=== PATIENT | female | born 1970 | race Two or more races ===

== ENCOUNTER 2024-08-13 10:46 | Outpatient (REF) | payer OTHER, SELFPAY ==
[2024-08-13 12:29] LABS: Erythrocyte Sedimentation Rate 22 MM/HR (0-20)
--- OUTSIDE RECORDS SUMMARY | 2024-08-13 15:37 | XMS_ITS | Encounter Summary ---
Author Organization [facility] Address [address] [place] [address] Care Team Providers Care Agile Developer Name Role Phone Vinny Trujillo MD Primary Care Provider [phone] Simeon Fowler MD Unavailable [phone] Livia Hines NP Unavailable [phone] Emile Clinton MD Primary Care Provider [phone] Freda Knapp MD Primary Care Provider U Gurmeet Medina MD, PHD Unavailable Oneydava Mekih Sotelo PA-C Unavailable [phone] Vinny Trujillo MD Primary Care Provider [phone] Encounter Details Date Type Department Care Team Description 08/11/2021 Hospital Medical Records [address] [place] [address] Jayy Guzman MD [address] [place] [address] Social History Tobacco Use Types Packs/Day Years Used Date Smoking Tobacco: Never Passive Smoke Exposure: Never Smokeless Tobacco: Never Alcohol Use Standard Drinks/Week Comments No 0 (1 standard drink = 0.6 oz pur e alcohol) Sex Assigned at Date Recorded Not on file Job Start Date Occupation Industry Not on file Not on file Not on file COVID-19 Exposure Response Date Recorded In the last month, have you been in contact with someone who was confirmed or suspected to have Coronavirus / COVID-19? No / Unsure 08/04/2021 1:33 PM EST documented as of this encounter Plan of Treatment Not on file documented as of this encounter Visit Diagnoses Not on filedocumented in this encounter Care Teams Agile Developer Relationship Specialty Start Date End Date Vinny Trujillo MD [address] [place] [address] PCP - General Internal Medicine 04/22/21 10/11/21 Emile Clinton MD [address] [place] [address] PCP - General Internal Medicine 10/12/21 10/15/21 Freda Knapp MD [address] [place] [address] PCP - General Internal Medicine 10/16/21 03/18/22 Vinny Trujillo MD [address] [place] [address] PCP - General Internal Medicine 03/19/22 Simeon Fowler MD [address] [place] [address] [place] [address] Hat Conditioner Cardiovascular Disease 04/28/21 Livia Hines NP [address] [place] [address] [address] [place] [address] Nurse Practitioner Cardiology 07/02/21 Gurmeet Agosto MD, PHD [address] [place] [address] Surgeon Neurosurgery 11/12/21 Mekhi Maddox PA-C 175 [facility] [address] [place] [address] Specialist Neurosurgery 11/12/21 documented as of this encounter
--- OUTSIDE RECORDS SUMMARY | 2024-08-13 15:37 | XMS_ITS | Encounter Summary ---
Author Organization [facility] Address [address] [place] [address] Care Team Providers Care Bin Packer Name Role Phone Vinny Trujillo MD Primary Care Provider [phone] Simeon Fowler MD Unavailable [phone] Livia Hines NP Unavailable [phone] Emile Clinton MD Primary Care Provider [phone] Freda Knapp MD Primary Care Provider U Gurmeet Medina MD, PHD Unavailable Unava Mekhi Sotelo PA-C Unavailable [phone] Vinny Trujillo MD Primary Care Provider [phone] Encounter Details Date Type Department Care Team Description 06/29/2021 Orders Only Medical Records [address] [place] [address] Vinny Trujillo MD [address] [place] [address] Social History Tobacco Use Types Packs/Day Years Used Date Smoking Tobacco: Never Smokeless Tobacco: Never Alcohol Use Standard [...] have Coronavirus / COVID-19? No / Unsure 07/02/2021 8:54 AM EST documented as of this encounter Plan of Treatment Not on file documented as of this encounter Procedures Procedure Name Priority Date/Time Associated Diagnosis Comments OUTSIDE SLEEP STUDY Routine 06/24/2021 documented in this encounter Results * OUTSIDE SLEEP STUDY (06/24/2021) Vinny Trujillo MD PULMONOLOGY documented in this encounter Visit Diagnoses Not on filedocumented in this encounter Care Teams Bin Packer Relationship Specialty Start Date End Date Vinny Trujillo MD [address] [place] [address] PCP - General Internal Medicine 04/22/21 10/11/21 Emile Clinton MD [address] [place] [address] PCP - General Internal Medicine 10/12/21 10/15/21 Freda Knapp MD [address] [place] [address] PCP - General Internal Medicine 10/16/21 03/18/22 Vinny Trujillo MD [address] [place] [address] PCP - General Internal Medicine 03/19/22 Simeon Fowler MD [address] [place] [address] [place] [address] Clutch Operator Cardiovascular Disease 04/28/21 Livia Hines NP [address] [place] [address] [address] [place] [address] Nurse Practitioner Cardiology 07/02/21 Gurmeet Agosto MD, PHD [address] [place] [address] Surgeon Neurosurgery 11/12/21 Mekhi Maddox PA-C 175 [facility] [address] [place] [address] Specialist Neurosurgery 11/12/21 documented as of this encounter
--- OUTSIDE RECORDS SUMMARY | 2024-08-13 15:37 | XMS_ITS | Encounter Summary ---
Author Organization [facility] Address [address] [place] [address] Care Team Providers Care Supervisor Costuming Name Role Phone Ambreen Hazel MD Primary Care Provider Oneyda vailable [facility], Pcp Primary Care Provider Unavailabl e Ambreen Hazel MD Primary Care Provider Oneyda vailable Vinny Trujillo MD Primary Care Provider [phone] Simeon Fowler MD Unavailable [phone] Livia Hines NP Unavailable [phone] Emile Clinton MD Primary Care Provider [phone] Freda Knapp MD Primary Care Provider U Gurmeet Medina MD, PHD Unavailable Unava ilable Mekhi MaddoxC Unavailable [phone] Vinny Trujillo MD Primary Care Provider [phone] Encounter Details Date Type Department Care Team Description 10/09/2018 Diversity Specialist Report Medical Records [address] [place] [address] Ting Rader MD Social History Tobacco Use Types Packs/Day Years Used Date Smoking Tobacco: Never Smokeless Tobacco: Never Alcohol Use Standard Drinks/Week Comments No 0 (1 standard drink = 0.6 oz pur e alcohol) Sex Assigned at Date Recorded Not on file Job Start Date Occupation Industry Not on file Not on file Not on file documented as of this encounter Plan of Treatment Not on file documented as of this encounter Visit Diagnoses Not on filedocumented in this encounter Care Teams Supervisor Costuming Relationship Specialty Start Date End Date Ambreen Hazel MD PCP - General Internal Medicine 01/05/16 [facility], [facility] PCP - General Internal Medicine 07/16/19 07/26/19 Ambreen Hazel MD PCP - General Internal Medicine 07/27/19 Vinny Trujillo MD [address] [place] [address] PCP - General Internal Medicine 04/22/21 10/11/21 Emile Clinton MD [address] [place] [address] PCP - General Internal Medicine 10/12/21 10/15/21 Freda Knapp MD [address] [place] [address] PCP - General Internal Medicine 10/16/21 03/18/22 Vinny Trujillo MD [address] [place] [address] PCP - General Internal Medicine 03/19/22 Simeon Fowler MD [address] [place] [address] [place] [address] Radiopharmacist Cardiovascular Disease 04/28/21 Livia Hines NP [address] [place] [address] [address] [place] [address] Nurse Practitioner Cardiology 07/02/21 Gurmeet Agosto MD, PHD [address] [place] [address] Surgeon Neurosurgery 11/12/21 Mekhi Maddox PA-C 175 [facility] [address] [place] [address] Specialist Neurosurgery 11/12/21 documented as of this encounter
--- OUTSIDE RECORDS SUMMARY | 2024-08-13 15:37 | XMS_ITS | Encounter Summary ---
Author Organization [facility] Address [address] [place] [address] Care Team Providers Care Senior Economist Name Role Phone Vinny Trujillo MD Primary Care Provider [phone] Simeon Fowler MD Unavailable [phone] Livia Hines NP Unavailable [phone] Emile Clinton MD Primary Care Provider [phone] Freda Knapp MD Primary Care Provider U Gurmeet Medina MD, PHD Unavailable Oneydava Mekhi Sotelo PA-C Unavailable [phone] Vinny Trujillo MD Primary Care Provider [phone] Encounter Details Date Type Department Care Team Description 08/12/2021 Orders Only Medical Records [address] [place] [address] Jayy Guzman MD [address] [place] [address] Social History Tobacco Use Types Packs/Day Years [...] Name Priority Date/Time Associated Diagnosis Comments OUTSIDE LAB Routine 08/08/2021 documented in this encounter Results * OUTSIDE LAB (08/08/2021) H Reid Guzman MD LAB documented in this encounter Visit Diagnoses Not on filedocumented in this encounter Care Teams Senior Economist Relationship Specialty Start Date End Date Vinny Trujillo MD [address] [place] [address] PCP - General Internal Medicine 04/22/21 10/11/21 Emile Clinton MD [address] [place] [address] PCP - General Internal Medicine 10/12/21 10/15/21 Freda Knapp MD [address] [place] [address] PCP - General Internal Medicine 10/16/21 03/18/22 Vinny Trujillo MD [address] [place] [address] PCP - General Internal Medicine 03/19/22 Simeon Fowler MD [address] [place] [address] [place] [address] Veneer Gluer Cardiovascular Disease 04/28/21 Livia Hines NP [address] [place] [address] [place] [address] Nurse Practitioner Cardiology 07/02/21 Gurmeet Agosto MD, PHD [address] [place] [address] Surgeon Neurosurgery 11/12/21 Mekhi Maddox PA-C 175 [facility] [address] [place] [address] Specialist Neurosurgery 11/12/21 documented as of this encounter
--- OUTSIDE RECORDS SUMMARY | 2024-08-13 15:37 | XMS_ITS | Encounter Summary ---
Author Organization [facility] Address [address] [place] [address] Care Team Providers Care Senior Reservations Agent Name Role Phone Chanell Will MD Primary Care Provider Unavaila Ambreen Mack MD Primary Care Provider Oneyda vailable [facility], Pcp Primary Care Provider UnavailAmbreen Braden MD Primary Care Provider Oneyda vailable Vinny Trujillo MD Primary Care Provider [phone] Simeon Fowler MD Unavailable [phone] Livia Hines NP Unavailable [phone] Emile Clinton MD Primary Care Provider [phone] Freda Knapp MD Primary Care Provider U Gurmeet Medina MD, PHD Unavailable Unava ilable Mekhi Maddox PA-C Unavailable [phone] Vinny Trujillo MD Primary Care Provider [phone] Encounter Details Date Type Department Care Team Description 09/26/2015 Business Doc Medical Records [address] [place] [address] Abstract, Provider Social History Tobacco Use Types Packs/Day Years [...] filedocumented in this encounter Care Teams Senior Reservations Agent Relationship Specialty Start Date End Date Chanell Will MD PCP - General Internal Medicine 03/31/15 01/04/16 Ambreen Hazel MD PCP - General Internal Medicine 01/05/16 [facility] PCP - General Internal Medicine 07/16/19 07/26/19 Ambreen Hazel MD PCP - General Internal Medicine 07/27/19 Vinny Trujillo MD [address] [place] [address] PCP - General Internal Medicine 04/22/21 10/11/21 Emile Clinton MD [address] [place] [address] PCP - General Internal Medicine 10/12/21 10/15/21 Freda Knapp MD [address] [place] [address] PCP - General Internal Medicine 10/16/21 03/18/22 Vinny Trujillo MD [address] [place] [address] PCP - General Internal Medicine 03/19/22 Simeon Fowler MD [address] [place] [address] [place] [address] Cover Stitch Machine Operator Cardiovascular Disease 04/28/21 Livia Hines NP [address] [place] [address] [place] [address] Nurse Practitioner Cardiology 07/02/21 Gurmeet Agosto MD, PHD [address] [place] [address] Surgeon Neurosurgery 11/12/21 Mekhi Maddox PA-C 175 [facility] [address] [place] [address] Specialist Neurosurgery 11/12/21 documented as of this encounter
--- OUTSIDE RECORDS SUMMARY | 2024-08-13 15:37 | XMS_ITS | Encounter Summary ---
Author Organization [facility] Address [address] [place] [address] Care Team Providers Care Workers Compensation Claims Supervisor Name Role Phone Ambreen Hazel MD Primary Care Provider Oneyda vailable [facility], Pcp Primary Care Provider Unavailabl e Ambreen Hazel MD Primary Care Provider Oneyda vailable Vinny Trujillo MD Primary Care Provider [phone] Simeon Fowler MD Unavailable [phone] Livia Hines NP Unavailable [phone] Emile Clinton MD Primary Care Provider [phone] Freda Knapp MD Primary Care Provider U Gurmeet Medina MD, PHD Unavailable Unava ilMekhi SouzaC Unavailable [phone] Vinny Trujillo MD Primary Care Provider [phone] Encounter Details Date Type Department Care Team Description 11/26/2016 Business Doc Medical Records [address] [place] [address] Abstract, Provider Social History Tobacco Use Types [...] on filedocumented in this encounter Care Teams Workers Compensation Claims Supervisor Relationship Specialty Start Date End Date Ambreen Hazel MD PCP - General Internal Medicine 01/05/16 [facility], Pcp PCP - General Internal Medicine 07/16/19 07/26/19 Ambreen Hazel MD PCP - General Internal Medicine 07/27/19 Vinny Trujillo MD [address] [place] [address] PCP - General Internal Medicine 04/22/21 10/11/21 Emile Clinton MD [address] [place] [address] PCP - General Internal Medicine 10/12/21 10/15/21 Freda Knapp MD [address] [place] [address] PCP - General Internal Medicine 10/16/21 03/18/22 Vinny Trujillo MD [address] [place] [address] PCP - General Internal Medicine 03/19/22 Simeon Fowler MD [address] [place] [address] [address] [place] [address] Cut Out Machine Operator Cardiovascular Disease 04/28/21 Livia Hines NP [address] [place] [address] DR[address] [place] [address] Nurse Practitioner Cardiology 07/02/21 Gurmeet Agosto MD, PHD [address] [place] [address] Surgeon Neurosurgery 11/12/21 Mekhi Maddox PA-C 175 [facility] [address] [place] [address] Specialist Neurosurgery 11/12/21 documented as of this encounter
--- OUTSIDE RECORDS SUMMARY | 2024-08-13 15:37 | XMS_ITS | Encounter Summary ---
Author Organization [facility] Address [address] [place] [address] Care Team Providers Care Rail Bender Name Role Phone Vinny Trujillo MD Primary Care Provider [phone] Simeon Fowler MD Unavailable [phone] Livia Hines NP Unavailable [phone] Emile Clinton MD Primary Care Provider [phone] Freda Knapp MD Primary Care Provider U Gurmeet Medina MD, PHD Unavailable Unava Mekhi Sotelo PA-C Unavailable [phone] Vinny Trujillo MD Primary Care Provider [phone] Encounter Details Date Type Department Care Team Description 06/17/2021 Hospital Medical Records [address] [place] [address] Social History Tobacco Use Types Packs/Day Years [...] have Coronavirus / COVID-19? No / Unsure 06/18/2021 11:05 AM EST documented as of this encounter Plan of Treatment Not on file documented as of this encounter Visit Diagnoses Not on filedocumented in this encounter Care Teams Rail Bender Relationship Specialty Start Date End Date Vinny Trujillo MD [address] [place] [address] PCP - General Internal Medicine 04/22/21 10/11/21 Emile Clinton MD [address] [place] [address] PCP - General Internal Medicine 10/12/21 10/15/21 Freda Knapp MD [address] [place] [address] PCP - General Internal Medicine 10/16/21 03/18/22 Vinny Trujillo MD [address] [place] [address] PCP - General Internal Medicine 03/19/22 Simeon Fowler MD [address] [place] [address] [place] [address] Securities Teller Cardiovascular Disease 04/28/21 Livia Hines NP [address] [place] [address] [address] [place] [address] Nurse Practitioner Cardiology 07/02/21 Gurmeet Agosto MD, PHD [address] [place] [address] Surgeon Neurosurgery 11/12/21 Mekhi Maddox PA-C [address] [place] [address] [address] [place] [address] Specialist Neurosurgery 11/12/21 documented as of this encounter
--- OUTSIDE RECORDS SUMMARY | 2024-08-13 15:37 | XMS_ITS | Encounter Summary ---
Author Organization [facility] Address [address] [place] [address] Care Team Providers Care Facilities Engineering Manager Name Role Phone Chanell Will MD Primary Care Provider Unavaila Ambreen Mack MD Primary Care Provider Oneyda vailable [facility], Pcp Primary Care Provider UnavailAmbreen Braden MD Primary Care Provider Oneyda vailable Vinny Trujillo MD Primary Care Provider [phone] Simeon Fowler MD Unavailable [phone] Livia Hines NP Unavailable [phone] Emile Clinton MD Primary Care Provider [phone] Freda Knapp MD Primary Care Provider U Gurmeet Medina MD, PHD Unavailable Unava ilable Mekhi Maddox PA-C Unavailable [phone] Vinny Trujillo MD Primary Care Provider [phone] Encounter Details Date Type Department Care Team Description 11/07/2015 Bin Worker Report Medical Records [address] [place] [address] [facility] [address] [id number] Social History Tobacco Use Types Packs/Day Years [...] on filedocumented in this encounter Care Teams Facilities Engineering Manager Relationship Specialty Start Date End Date Chanell Will MD PCP - General Internal Medicine 03/31/15 01/04/16 Ambreen Hazel MD PCP - General Internal Medicine 01/05/16 [facility] PCP - General Internal Medicine 07/16/19 07/26/19 Ambreen Hazel MD PCP - General Internal Medicine 07/27/19 Vinny Trujillo MD [address] [place] [address] PCP - General Internal Medicine 04/22/21 10/11/21 Emile Clinton MD [address] [place] [address] PCP - General Internal Medicine 10/12/21 10/15/21 Freda Knapp MD [address] [place] [address] PCP - General Internal Medicine 10/16/21 03/18/22 Vinny Trujillo MD [address] [place] [address] PCP - General Internal Medicine 03/19/22 Simeon Fowler MD [address] [place] [address] [place] [address] Strap Machine Operator Automatic Cardiovascular Disease 04/28/21 Livia Hines NP [address] [place] [address] [address] [place] [address] Nurse Practitioner Cardiology 07/02/21 Gurmeet Agosto MD, PHD [address] [place] [address] Surgeon Neurosurgery 11/12/21 Mekhi Maddox PA-C [address] [place] [address] [address] [place] [address] Specialist Neurosurgery 11/12/21 documented as of this encounter
--- OUTSIDE RECORDS SUMMARY | 2024-08-13 15:37 | XMS_ITS | Encounter Summary ---
Author Organization [facility] Address [address] [place] [address] Care Team Providers Care Rn International Name Role Phone Ambreen Hazel MD Primary Care Provider Oneyda vailable [facility], Pcp Primary Care Provider Unavailabl e Ambreen Hazel MD Primary Care Provider Oneyda vailable Vinny Trujillo MD Primary Care Provider [phone] Simeon Fowler MD Unavailable [phone] Livia Hines NP Unavailable [phone] Emile Clinton MD Primary Care Provider Freda Knapp MD Primary Care Provider U Gurmeet Medina MD, PHD Unavailable Unava ilable Mekhi MaddoxC Unavailable [phone] Vinny Trujillo MD Primary Care Provider [phone] Encounter Details Date Type Department Care Team Description 01/10/2019 Commercial Lines Insurance Agent Report Medical Records [address] [place] [address] Ting Rader MD Social History Tobacco Use [...] on filedocumented in this encounter Care Teams Rn International Relationship Specialty Start Date End Date Ambreen Hazel MD PCP - General Internal Medicine 01/05/16 [facility], [facility] PCP - General Internal Medicine 07/16/19 07/26/19 Ambreen Hazel MD PCP - General Internal Medicine 07/27/19 Vinny Trujillo MD [address] [place] [address] PCP - General Internal Medicine 04/22/21 10/11/21 Emile Clinton MD [address] [place] [address] PCP - General Internal Medicine 10/12/21 10/15/21 Freda Knapp MD [address] [place] [address] PCP - General Internal Medicine 10/16/21 03/18/22 Vinny Trujillo MD [address] [place] [address] PCP - General Internal Medicine 03/19/22 Simeon Fowler MD [address] [place] [address] [place] [address] It Auditor Cardiovascular Disease 04/28/21 Livia Hines NP [address] [place] [address] [address] [place] [address] Nurse Practitioner Cardiology 07/02/21 Gurmeet Agosto MD, PHD [address] [place] [address] Surgeon Neurosurgery 11/12/21 Mekhi Maddox PA-C 175 [facility] [address] [place] [address] Specialist Neurosurgery 11/12/21 documented as of this encounter
--- OUTSIDE RECORDS SUMMARY | 2024-08-13 15:37 | XMS_ITS | Encounter Summary ---
Author Organization [facility] Address [address] [place] [address] Care Team Providers Care Mainframe Systems Programmer Name Role Phone Ambreen Hazel MD Primary Care Provider Oneyda vailagale Dominguez, Pcp Primary Care Provider Unavailabl e Ambreen Hazel MD Primary Care Provider Oneyda vailable Vinny Trujillo MD Primary Care Provider [phone] Simeon Fowler MD Unavailable [phone] Livia Hines NP Unavailable [phone] Emile Clinton MD Primary Care Provider [phone] Freda Knapp MD Primary Care Provider U Gurmeet Medina MD, PHD Unavailable Unava ilMekhi Souza PA-C Unavailable [phone] Vinny Trujillo MD Primary Care Provider [phone] Encounter Details Date Type Department Care Team Description 05/26/2016 Release of Information Medical Records [address] [place] [address] Abstract, Provider Social History Tobacco Use Types [...] on filedocumented in this encounter Care Teams Mainframe Systems Programmer Relationship Specialty Start Date End Date Ambreen Hazel MD PCP - General Internal Medicine 01/05/16 [facility], Pcp PCP - General Internal Medicine 07/16/19 07/26/19 Ambreen Hazel MD PCP - General Internal Medicine 07/27/19 Vinny Trujillo MD [address] [place] [address] PCP - General Internal Medicine 04/22/21 10/11/21 Emile Clinton MD [address] [place] [address] PCP - General Internal Medicine 10/12/21 10/15/21 Freda Knapp MD [address] [place] [address] PCP - General Internal Medicine 10/16/21 03/18/22 Vinny Trujillo MD [address] [place] [address] PCP - General Internal Medicine 03/19/22 Simeon Fowler MD [address] [place] [address] [address] [place] [address] Anchor Operator Cardiovascular Disease 04/28/21 Livia Hines NP [address] [place] [address] [address] [place] [address] Nurse Practitioner Cardiology 07/02/21 Gurmeet Agosto MD, PHD [address] [place] [address] Surgeon Neurosurgery 11/12/21 Mekhi Maddox PA-C 175 [facility] [address] [place] [address] Specialist Neurosurgery 11/12/21 documented as of this encounter
--- OUTSIDE RECORDS SUMMARY | 2024-08-13 15:37 | XMS_ITS | Encounter Summary ---
Author Organization [facility] Address [address] [place] [address] Care Team Providers Care Fabric Lay Out Worker Name Role Phone Vinny Trujillo MD Primary Care Provider [phone] Simeon Fowler MD Unavailable [phone] Livia Hines NP Unavailable [phone] Emile Clinton MD Primary Care Provider [phone] Freda Knapp MD Primary Care Provider U Gurmeet Medina MD, PHD Unavailable Oneydava Mekhi Sotelo PA-C Unavailable [phone] Vinny Trujillo MD Primary Care Provider [phone] Encounter Details Date Type Department Care Team Description 08/13/2021 Orders Only Medical Records [address] [place] [address] Jayy Guzman MD [address] [place] [id number] Social History Tobacco Use Types Packs/Day Years [...] PM EST documented as of this encounter Progress Notes * Ida Guzman MD - 08/24/2021 10:19 AM EST Dear Kayla gastric biopsies taken during the endoscopy show mild inflammation which may have beencaused by irritants. These irritants are such as gastric acid, bile, nonsteroidal medications example ibuprofen, Aleve, caffeine, nicotine or alcohol. Please try to avoid these irritants as much as possible. You may also use an mnuu-kow-loumggf acid reducing agent such as Zantac or Pepcid, Tums, omeprazole etc. when necessary.I would like to personally thank you for allowing us to take care of you. Please don't hesitate to call us for any questions or concerns. Regards, Martín Guzman MD BoardCertified Gastroenterology and Internal Medicine Transplant Hepatology [facility] documented in this encounter Plan of Treatment Not on file documented as of this encounter Procedures Procedure Name Priority Date/Time Associated Diagnosis Comments OUTSIDE PATHOLOGY Routine 08/11/2021 documented in this encounter Results * OUTSIDE PATHOLOGY (08/11/2021) Jayy Guzman MD OUTSIDE LAB documented in this encounter Visit Diagnoses Not on filedocumented in this encounter Care Teams Fabric Lay Out Worker Relationship Specialty Start Date End Date Vinny Trujillo MD [address] [place] [address] PCP - General Internal Medicine 04/22/21 10/11/21 Emile Clinton MD [address] [place] [address] PCP - General Internal Medicine 10/12/21 10/15/21 Freda Knapp MD [address] [place] [address] PCP - General Internal Medicine 10/16/21 03/18/22 Vinny Trujillo MD [address] [place] [address] PCP - General Internal Medicine 03/19/22 Simeon Fowler MD [address] [place] [address] [address] [place] [address] Rotary Derrick Operator Cardiovascular Disease 04/28/21 Livia Hines NP [address] [place] [address] [address] [place] [address] Nurse Practitioner Cardiology 07/02/21 Gurmeet Agosto MD, PHD [address] [place] [address] Surgeon Neurosurgery 11/12/21 Mekhi Maddox PA-C 175 [facility] [address] [place] [address] Specialist Neurosurgery 11/12/21 documented as of this encounter
--- OUTSIDE RECORDS SUMMARY | 2024-08-13 15:37 | XMS_ITS | Encounter Summary ---
Author Organization [facility] Address [address] [place] [address] Care Team Providers Care Featheredge Machine Operator Name Role Phone Ambreen Hazel MD Primary Care Provider Oneyda vailable [facility], Pcp Primary Care Provider Unavailabl e Ambreen Hazel MD Primary Care Provider Oneyda vailable Vinny Trujillo MD Primary Care Provider [phone] Simeon Fowler MD Unavailable [phone] Livia Hines NP Unavailable [phone] Emile Clinton MD Primary Care Provider [phone] Freda Knapp MD Primary Care Provider U Gurmeet Medina MD, PHD Unavailable Unava ilable Mekhi MaddoxC Unavailable [phone] Vinny Trujillo MD Primary Care Provider [phone] Encounter Details Date Type Department Care Team Description 08/30/2018 Steam Fitter Helper Report Medical Records [address] [place] [address] Ting Rader MD Social History Tobacco Use [...] on filedocumented in this encounter Care Teams Featheredge Machine Operator Relationship Specialty Start Date End Date Ambreen Hazel MD PCP - General Internal Medicine 01/05/16 [facility] PCP - General Internal Medicine 07/16/19 07/26/19 Ambreen Hazel MD PCP - General Internal Medicine 07/27/19 Vinny Trujillo MD [address] [place] [address] PCP - General Internal Medicine 04/22/21 10/11/21 Emile Clinton MD [address] [place] [address] PCP - General Internal Medicine 10/12/21 10/15/21 Freda Knapp MD [address] [place] [address] PCP - General Internal Medicine 10/16/21 03/18/22 Vinny Trujillo MD [address] [place] [address] PCP - General Internal Medicine 03/19/22 Simeon Fowler MD [address] [place] [address] [place] [address] Fund Development Manager Cardiovascular Disease 04/28/21 Livia Hines NP [address] [place] [address] [address] [place] [address] Nurse Practitioner Cardiology 07/02/21 Gurmeet Agosto MD, PHD [address] [place] [address] Surgeon Neurosurgery 11/12/21 Mekhi Maddox PA-C 175 [facility] [address] [place] [address] Specialist Neurosurgery 11/12/21 documented as of this encounter
--- OUTSIDE RECORDS SUMMARY | 2024-08-13 15:37 | XMS_ITS | Encounter Summary ---
Author Organization [facility] Address [address] [place] [address] Care Team Providers Care Extruding Press Operator Name Role Phone Ambreen Hazel MD Primary Care Provider Oneyda vailagale Dominguez, Pcp Primary Care Provider Unavailabl e Ambreen Hazel MD Primary Care Provider Oneyda vailable Vinny Trujillo MD Primary Care Provider [phone] Simeon Fowler MD Unavailable [phone] Livia Hines NP Unavailable [phone] Emile Clinton MD Primary Care Provider [phone] Freda Knapp MD Primary Care Provider U Gurmeet Medina MD, PHD Unavailable Unava ilMekhi Souza PA-C Unavailable [phone] Vinny Trujillo MD Primary Care Provider [phone] Encounter Details Date Type Department Care Team Description 02/15/2019 Release of Information Medical Records [address] [place] [id number] Abstract, Provider Social History Tobacco Use Types [...] on filedocumented in this encounter Care Teams Extruding Press Operator Relationship Specialty Start Date End Date Ambreen Hazel MD PCP - General Internal Medicine 01/05/16 [facility], Pcp PCP - General Internal Medicine 07/16/19 07/26/19 Ambreen Hazel MD PCP - General Internal Medicine 07/27/19 Vinny Trujillo MD [address] [place] [address] PCP - General Internal Medicine 04/22/21 10/11/21 Emile Clinton MD [address] [place] [address] PCP - General Internal Medicine 10/12/21 10/15/21 Freda Knapp MD [address] [place] [address] PCP - General Internal Medicine 10/16/21 03/18/22 Vinny Trujillo MD [address] [place] [address] PCP - General Internal Medicine 03/19/22 Simeon Fowler MD [address] [place] [address] [address] [place] [address] Custom Dressmaker Cardiovascular Disease 04/28/21 Livia Hines NP [address] [place] [address] [address] [place] [address] Nurse Practitioner Cardiology 07/02/21 Gurmeet Agosto MD, PHD [address] [place] [address] Surgeon Neurosurgery 11/12/21 Mekhi Maddox PA-C 175 [facility] [address] [place] [address] Specialist Neurosurgery 11/12/21 documented as of this encounter
--- OUTSIDE RECORDS SUMMARY | 2024-08-13 15:37 | XMS_ITS | Encounter Summary ---
Author Organization [facility] Address [address] [place] [address] Care Team Providers Care Maintenance Scheduler Name Role Phone Simeon Fowler MD Unavailable [phone] Livia Hines NP Unavailable [phone] Freda Knapp MD Primary Care Provider U Gurmeet Medina MD, PHD Unavailable Oneydava Mekhi Sotelo PA-C Unavailable [phone] Vinny Trujillo MD Primary Care Provider [phone] Reason for Visit * Reason Comments E-prescribe Rx Request Encounter Details Date Type Department Care Team Description 01/24/2022 Refill Gastroenterology [facility] 175 [facility] [address] [place] [address] Sin Prasad MD E-prescribe Rx Request Social History Tobacco Use Types Packs/Day Years Used Date Smoking Tobacco: Never Smokeless Tobacco: Never Alcohol Use Standard Drinks/Week Comments No 0 (1 standard drink = 0.6 oz pur e alcohol) Sex Assigned at Date Recorded Not on file Job Start Date Occupation Industry Not on file Not on file Not on file COVID-19 Exposure Response Date Recorded In the last 10 days, have yo u been in contact with someone who was confirmed or suspected to have Coronavirus/COVID-19? No / Unsure 01/06/2022 8:26 AM EDT documented as of this encounter Plan of Treatment Not on file documented as of this encounter Visit Diagnoses Not on filedocumented in this encounter Care Teams Maintenance Scheduler Relationship Specialty Start Date End Date Freda Knapp MD [address] [place] [address] [address] [place] [address] PCP - General Internal Medicine 10/16/21 03/18/22 Vinny Trujillo MD [address] [place] [address] PCP - General Internal Medicine 03/19/22 Simeon Fowler MD [address] [place] [address] [address] [place] [address] Dock Grader Cardiovascular Disease 04/28/21 Livia Hines NP [address] [place] [address] [address] [place] [address] Nurse Practitioner Cardiology 07/02/21 Gurmeet Agosto MD, PHD [address] [place] [address] [address] [place] [address] Surgeon Neurosurgery 11/12/21 Mekhi Maddox PA-C [address] [place] [address] [address] [place] [address] Specialist Neurosurgery 11/12/21 documented as of this encounter
--- OUTSIDE RECORDS SUMMARY | 2024-08-13 15:37 | XMS_ITS | Encounter Summary ---
Author Organization [facility] Address [address] [place] [address] Care Team Providers Care Head Of Acquisitions Name Role Phone Ambreen Hazel MD Primary Care Provider Oneyda vailable Alberto, Pcp Primary Care Provider Unavailabl e Ambreen Hazel MD Primary Care Provider Oneyda vailable Vinny Trujillo MD Primary Care Provider [phone] Simeon Fowler MD Unavailable [phone] Livia Hines NP Unavailable [phone] Emile Clinton MD Primary Care Provider [phone] Freda Knapp MD Primary Care Provider U Gurmeet Medina MD, PHD Unavailable Unava ilMekhi SouzaC Unavailable [phone] Vinny Trujillo MD Primary Care Provider [phone] Encounter Details Date Type Department Care Team Description 09/24/2016 Business Doc Medical Records [address] [place] [address] Abstract, Provider Social History Tobacco Use Types [...] on filedocumented in this encounter Care Teams Head Of Acquisitions Relationship Specialty Start Date End Date Ambreen Hazel MD PCP - General Internal Medicine 01/05/16 [facility], Pcp PCP - General Internal Medicine 07/16/19 07/26/19 Ambreen Hazel MD PCP - General Internal Medicine 07/27/19 Vinny Trujillo MD [address] [place] [address] PCP - General Internal Medicine 04/22/21 10/11/21 Emile Clniton MD [address] [place] [address] PCP - General Internal Medicine 10/12/21 10/15/21 Freda Knapp MD [address] [place] [address] PCP - General Internal Medicine 10/16/21 03/18/22 Vinny Trujillo MD [address] [place] [address] PCP - General Internal Medicine 03/19/22 Simeon Fowler MD [address] [place] [address] [address] [place] [address] Kettle Operator Cardiovascular Disease 04/28/21 Livia Hines NP [address] [place] [address] DR[address] [place] [address] Nurse Practitioner Cardiology 07/02/21 Gurmeet Agosto MD, PHD [address] [place] [address] Surgeon Neurosurgery 11/12/21 Mekhi Maddox PA-C 175 [facility] [address] [place] [address] Specialist Neurosurgery 11/12/21 documented as of this encounter
--- OUTSIDE RECORDS SUMMARY | 2024-08-13 15:37 | XMS_ITS | Encounter Summary ---
Author Organization [facility] Address [address] [place] [address] Care Team Providers Care Tile Mechanic Name Role Phone Simeon Fowler MD Unavailable [phone] Livia Hines NP Unavailable [phone] Gurmeet Agosto MD, PHD Unavailable Unava ilMekhi Souza PA-C Unavailable [phone] Vinny Trujillo MD Primary Care Provider [phone] Encounter Details Date Type Department Care Team Description 04/14/2022 Orders Only Medical Records [address] [place] [address] Vinny Trujillo MD [address] [place] [address] Social History Tobacco Use Types Packs/Day Years [...] suspected to have Coronavirus/COVID-19? No / Unsure 04/15/2022 11:39 AM EDT documented as of this encounter Plan of Treatment Not on file documented as of this encounter Procedures Procedure Name Priority Date/Time Associated Diagnosis Comments OUTSIDE MAMMO Routine 04/13/2022 documented in this encounter Results * OUTSIDE MAMMO (04/13/2022) Vinny Trujillo MD RADIOLOGY documented in this encounter Visit Diagnoses Not on filedocumented in this encounter Care Teams Tile Mechanic Relationship Specialty Start Date End Date Vinny Trujillo MD [address] [address] PCP - General Internal Medicine 03/19/22 Simeon Fowler MD [address] [place] [address] [place] [address] Help Desk Associate Cardiovascular Disease 04/28/21 Livia Hines NP [address] [place] [address] [place] [address] Nurse Practitioner Cardiology 07/02/21 Gurmeet Agosto MD, PHD [address] [place] [address] [address] [place] [address] Surgeon Neurosurgery 11/12/21 Mekhi Maddox PA-C 175 [facility] [address] [place] [address] Specialist Neurosurgery 11/12/21 documented as of this encounter
--- OUTSIDE RECORDS SUMMARY | 2024-08-13 15:37 | XMS_ITS | Encounter Summary ---
Author Organization [facility] Address [address] [place] [address] Care Team Providers Care Privacy Director Name Role Phone Simeon Fowler MD Unavailable [phone] Livia Hines NP Unavailable [phone] Freda Knapp MD Primary Care Provider U Gurmeet Medina MD, PHD Unavailable Oneydava Mekhi Sotelo PA-C Unavailable [phone] Vinny Trujillo MD Primary Care Provider [phone] Encounter Details Date Type Department Care Team Description 01/19/2022 [facility] Neurosurgery [place] [address] [place] [address] Gurmeet Agosto MD, PHD Social History Tobacco Use Types Packs/Day Years [...] on filedocumented in this encounter Care Teams Privacy Director Relationship Specialty Start Date End Date Freda Knapp MD [address] [place] [address] DR[address] [place] [address] PCP - General Internal Medicine 10/16/21 03/18/22 Vinny Trujillo MD [address] [place] [address] PCP - General Internal Medicine 03/19/22 Simeon Fowler MD [address] [place] [address] [address] [place] [address] Quilting Machine Helper Cardiovascular Disease 04/28/21 Livia Hines NP [address] [place] [address] [address] [place] [address] Nurse Practitioner Cardiology 07/02/21 Gurmeet Agosto MD, PHD [address] [place] [address] [address] [place] [address] Surgeon Neurosurgery 11/12/21 Mekhi Maddox PA-C [address] [place] [address] [address] [place] [address] Specialist Neurosurgery 11/12/21 documented as of this encounter
--- OUTSIDE RECORDS SUMMARY | 2024-08-13 15:38 | XMS_ITS | Encounter Summary ---
Author Organization [facility] Address [address] [place] [address] Care Team Providers Care Management Recruiter Name Role Phone Vinny Trujillo MD Primary Care Provider [phone] Simeon Fowler MD Unavailable [phone] Livia Hines NP Unavailable [phone] Emile Clinton MD Primary Care Provider [phone] Freda Knapp MD Primary Care Provider U Gurmeet Medina MD, PHD Unavailable Mekhi Maier PA-C Unavailable [phone] Vinny Trujillo MD Primary Care Provider [phone] Encounter Details Date Type Department Care Team Description 09/30/2021 Hospital Medical Records [address] [place] [address] Hakeem Arias PA-C 175 [facility] [address] [place] [address] Social History Tobacco Use Types Packs/Day Years [...] on filedocumented in this encounter Care Teams Management Recruiter Relationship Specialty Start Date End Date Vinny Trujillo MD [address] [place] [address] PCP - General Internal Medicine 04/22/21 10/11/21 Emile Clinton MD [address] [place] [address] PCP - General Internal Medicine 10/12/21 10/15/21 Freda Knapp MD [address] [place] [address] PCP - General Internal Medicine 10/16/21 03/18/22 Vinny Trujillo MD [address] [place] [address] PCP - General Internal Medicine 03/19/22 Simeon Fowler MD [address] [place] [address] [place] [address] Artists' Model Cardiovascular Disease 04/28/21 Livia Hines NP [address] [place] [address] [address] [place] [address] Nurse Practitioner Cardiology 07/02/21 Gurmeet Agosto MD, PHD [address] [place] [address] Surgeon Neurosurgery 11/12/21 Mekhi Maddox PA-C [address] [place] [address] [address] [place] [address] Specialist Neurosurgery 11/12/21 documented as of this encounter
--- OUTSIDE RECORDS SUMMARY | 2024-08-13 15:38 | XMS_ITS | Encounter Summary ---
Author Organization [facility] Address [address] [place] [address] Care Team Providers Care Metal Pattern Maker Name Role Phone Simeon Fowler MD Unavailable [phone] Livia Hines NP Unavailable [phone] Freda Knapp MD Primary Care Provider Gumreet Medina MD, PHD Unavailable Mekhi Maier PA-C Unavailable [phone] Vinny Trujillo MD Primary Care Provider [phone] Encounter Details Date Type Department Care Team Description 10/22/2021 SCAN Medical Records [address] [place] [address] Abstract, Provider Social History Tobacco Use Types [...] on filedocumented in this encounter Care Teams Metal Pattern Maker Relationship Specialty Start Date End Date Freda Knapp MD [address] [facility] [address] [place] [address] PCP - General Internal Medicine 10/16/21 03/18/22 Vinny Trujillo MD [address] [place] [address] PCP - General Internal Medicine 03/19/22 Simeon Fowler MD [address] [place] [address] [address] [place] [address] Bulk Picker Cardiovascular Disease 04/28/21 Livia Hines NP [address] [place] [address] [address] [place] [address] Nurse Practitioner Cardiology 07/02/21 Gurmeet Agosto MD, PHD [address] [place] [address] [address] [place] [address] Surgeon Neurosurgery 11/12/21 Mekhi Maddox PA-C [address] [place] [address] [address] [place] [address] Specialist Neurosurgery 11/12/21 documented as of this encounter
--- OUTSIDE RECORDS SUMMARY | 2024-08-13 15:38 | XMS_ITS | Encounter Summary ---
Author Organization [facility] Address [address] [place] [address] Care Team Providers Care Stewarding Supervisor Name Role Phone Simeon Fowler MD Unavailable [phone] Livia Hines NP Unavailable [phone] Gurmeet Agosto MD, PHD Unavailable Unava Mekhi Sotelo PA-C Unavailable [phone] Vinny Trujillo MD Primary Care Provider [phone] Encounter Details Date Type Department Care Team Description 07/17/2023 Night Triage Doc Medical Records [address] [place] [address] Abstract, Provider Social History Tobacco Use Types [...] on filedocumented in this encounter Care Teams Stewarding Supervisor Relationship Specialty Start Date End Date Vinny Trujillo MD [facility] [place], [place] 140[address] PCP - General Internal Medicine 03/19/22 Simeon Fowler MD [address] [place] [address] [address] [place], [place] [address] Fashion Supervisor Cardiovascular Disease 04/28/21 Livia Hines, JOHN [address] [place] [address] [address] [place] [address] Nurse Practitioner Cardiology 07/02/21 Gurmeet Agosto MD, PHD [address] [place] [address] [address] [place] [address] Surgeon Neurosurgery 11/12/21 Mekhi Maddox PA-C [address] [place] [address] [address] [place] [address] Specialist Neurosurgery 11/12/21 documented as of this encounter
--- OUTSIDE RECORDS SUMMARY | 2024-08-13 15:38 | XMS_ITS | Encounter Summary ---
Author Organization [facility] Address [address] [place] [address] Care Team Providers Care Child Welfare Assistant Name Role Phone Vinny Trujillo MD Primary Care Provider [phone] Simeon Fowler MD Unavailable [phone] Livia Hines NP Unavailable [phone] Emile Clinton MD Primary Care Provider [phone] Freda Knapp MD Primary Care Provider U Gurmeet Medina MD, PHD Unavailable Oneydava Mekhi Sotelo PA-C Unavailable [phone] Vinny Trujillo MD Primary Care Provider [phone] Encounter Details Date Type Department Care Team Description 04/22/2021 Hospital Medical Records [address] [place], [place] [address] [place] [address] Social History Tobacco Use Types Packs/Day Years [...] on filedocumented in this encounter Care Teams Child Welfare Assistant Relationship Specialty Start Date End Date Vinny Trujillo MD [address] [place] [address] PCP - General Internal Medicine 04/22/21 10/11/21 Emile Clinton MD [address] [place] [address] PCP - General Internal Medicine 10/12/21 10/15/21 Freda Knapp MD [address] [place] [address] PCP - General Internal Medicine 10/16/21 03/18/22 Vinny Trujillo MD [address] [place] [address] PCP - General Internal Medicine 03/19/22 Simeon Fowler MD [address] [place] [address] [address] [place] [address] Percussion Instructor Cardiovascular Disease 04/28/21 Livia Hines NP [address] [place] [address] [address] [place] [address] Nurse Practitioner Cardiology 07/02/21 Gurmeet Agosto MD, PHD [address] [place] [address] Surgeon Neurosurgery 11/12/21 Mekhi Maddox PA-C 175 [facility] [address] [place] [address] Specialist Neurosurgery 11/12/21 documented as of this encounter
--- OUTSIDE RECORDS SUMMARY | 2024-08-13 15:38 | XMS_ITS | Encounter Summary ---
Author Organization [facility] Address [address] [place] [address] Care Team Providers Care Interlocking Installer Name Role Phone Simeon Fowler MD Unavailable [phone] Livia Hines NP Unavailable [phone] Freda Knapp MD Primary Care Provider U Gurmeet Medina MD, PHD Unavailable Oneydava Mekhi Sotelo PA-C Unavailable [phone] Vinny Trujillo MD Primary Care Provider [phone] Reason for Visit * Reason Comments E-prescribe Rx Request Encounter Details Date Type Department Care Team Description 12/02/2021 Refill Gastroenterology [facility] 175 [facility] [address] [place] [address] Sin Prasad MD E-prescribe Rx [...] suspected to have Coronavirus/COVID-19? No / Unsure 12/03/2021 9:31 AM EDT documented as of this encounter Plan of Treatment Not on file documented as of this encounter Visit Diagnoses Not on filedocumented in this encounter Care Teams Interlocking Installer Relationship Specialty Start Date End Date Freda Knapp MD [address] [place] [address] [address] [place] [address] PCP - General Internal Medicine 10/16/21 03/18/22 Vinny Trujillo MD [address] [place] [address] PCP - General Internal Medicine 03/19/22 Simeon Fowler MD [address] [place] [address] [address] [place] [address] Real Estate Services Administrator Cardiovascular Disease 04/28/21 Livia Hines NP [address] [place] [address] [address] [place] [address] Nurse Practitioner Cardiology 07/02/21 Gurmeet Agosto MD, PHD [address] [place] [address] [address] [place] [address] Surgeon Neurosurgery 11/12/21 Mekhi Maddox PA-C [address] [place] [address] [address] [place] [address] Specialist Neurosurgery 11/12/21 documented as of this encounter
--- OUTSIDE RECORDS SUMMARY | 2024-08-13 15:38 | XMS_ITS | Encounter Summary ---
Author Organization [facility] Address [address] [place] [address] Care Team Providers Care Puff Ironer Name Role Phone Simeon Fowler MD Unavailable [phone] Livia Hines NP Unavailable [phone] Gurmeet Agosto MD, PHD Unavailable Unava ilMekhi Souza PA-C Unavailable [phone] Vinny Trujillo MD Primary Care Provider [phone] Reason for Visit * Reason Onset Date Comments Walk In 10/26/2022 [employer] bryannaany letter Encounter Details Date Type Department Care Team Description 10/26/2022 Telephone Cardio [facility] [address] [place] [address] [address] [place] [phone] Simeon Fowler MD 2 [facility] [address] [place], [place] [id number] Walk In ([employer] letter) Social History Tobacco Use Types Packs/Day Years [...] suspected to have Coronavirus/COVID-19? No / Unsure 10/25/2022 9:11 AM EDT documented as of this encounter Miscellaneous Notes * Telephone Encounter - Simeon Fowler MD - 10/27/2022 12:02 PM EDT Sent form 10/27/22 * Telephone Encounter - Tiffany Regan M.A. - 10/26/2022 4:46 PM EDT Form given to Dr. Fowler for review. * Telephone Encounter - Vicky Knight - 10/26/2022 8:43 AM EDT Patient walked in to drop off a form from [employer] that she'd like filled out by Dr. Fowler. Patients states she needs form filled out and faxed by this Saturday October 29, 2022. The fax number is [phone]. If any questions or concerns, the patient can be reached at [phone]. Thank you! documented in this encounter Plan of Treatment Not on file documented as of this encounter Visit Diagnoses Not on filedocumented in this encounter Care Teams Puff Ironer Relationship Specialty Start Date End Date Vinny Trujillo MD [address] [place] [address] PCP - General Internal Medicine 03/19/22 Simeon Fowler MD [address] [place] [address] [place] [address] Regulatory Intern Cardiovascular Disease 04/28/21 Livia Hines NP [address] [place] [address] [place] [address] Nurse Practitioner Cardiology 07/02/21 Gurmeet Agosto MD, PHD [address] [place] [address] [place] [address] Surgeon Neurosurgery 11/12/21 Mekhi Maddox PA-C 175 [facility] [address] [place] [address] Specialist Neurosurgery 11/12/21 documented as of this encounter
--- OUTSIDE RECORDS SUMMARY | 2024-08-13 15:38 | XMS_ITS | Encounter Summary ---
Author Organization [facility] Address [address] [place] [address] Care Team Providers Care Reach Lift Truck Driver Name Role Phone Vinny Trujillo MD Primary Care Provider [phone] Simeon Fowler MD Unavailable [phone] Livia Hines NP Unavailable [phone] Emile Clinton MD Primary Care Provider [phone] Freda Knapp MD Primary Care Provider U Gurmeet Medina MD, PHD Unavailable Oneydava Mekhi Sotelo PA-C Unavailable [phone] Vinny Trujillo MD Primary Care Provider [phone] Encounter Details Date Type Department Care Team Description 04/26/2021 [facility] Medical Records [address] [place] [address] Simeon Fowler MD [address] [place] [address] [address] [place] [id number] Social History Tobacco Use Types Packs/Day Years [...] on filedocumented in this encounter Care Teams Reach Lift Truck Driver Relationship Specialty Start Date End Date Vinny Trujillo MD [address] [place] [address] PCP - General Internal Medicine 04/22/21 10/11/21 Emile Clinton MD [address] [place] [address] PCP - General Internal Medicine 10/12/21 10/15/21 Freda Knapp MD [address] [place] [address] PCP - General Internal Medicine 10/16/21 03/18/22 Vinny Trujillo MD [address] [place] [address] PCP - General Internal Medicine 03/19/22 Simeon Fowler MD [address] [place] [address] [place] [address] Fuel Efficient Aircraft Designer Cardiovascular Disease 04/28/21 Livia Hines NP [address] [place] [address] [address] [place] [address] Nurse Practitioner Cardiology 07/02/21 Gurmeet Agosto MD, PHD [address] [place] [address] Surgeon Neurosurgery 11/12/21 Mekhi Maddox PA-C [address] [place] [address] [address] [place] [address] Specialist Neurosurgery 11/12/21 documented as of this encounter
--- OUTSIDE RECORDS SUMMARY | 2024-08-13 15:38 | XMS_ITS | Encounter Summary ---
Author Organization [facility] Address [address] [place] [address] Care Team Providers Care Build Engineer Name Role Phone Ambreen Hazel MD Primary Care Provider Oneyda Vinny Arguello MD Primary Care Provider [phone] Simeon Fowler MD Unavailable [phone] Livia Hines NP Unavailable [phone] Emile Clinton MD Primary Care Provider [phone] Freda Knapp MD Primary Care Provider U Gurmeet Medina MD, PHD Unavailable Unava Mekhi Sotelo PA-C Unavailable [phone] Vinny Trujillo MD Primary Care Provider [phone] Reason for Visit * Reason Comments E-prescribe Rx Request Encounter Details Date Type Department Care Team Description 01/05/2021 Refill Gastroenterology [facility] 175 [facility] [address] [place] [id number] Sin Prasad MD E-prescribe Rx Request Social [...] on filedocumented in this encounter Care Teams Build Engineer Relationship Specialty Start Date End Date Ambreen Hazel MD PCP - General Internal Medicine 07/27/19 Vinny Trujillo MD [address] [place] [address] PCP - General Internal Medicine 04/22/21 10/11/21 Emile Clinton MD [address] [place] [address] PCP - General Internal Medicine 10/12/21 10/15/21 Freda Knapp MD [address] [place] [address] PCP - General Internal Medicine 10/16/21 03/18/22 Vinny Trujillo MD [address] [place] [address] PCP - General Internal Medicine 03/19/22 Simeon Fowler MD [address] [place] [address] [address] [place] [address] Integrated Circuit Fabricator Cardiovascular Disease 04/28/21 Livia Hines NP [address] [place] [address] [address] [place] [address] Nurse Practitioner Cardiology 07/02/21 Gurmeet Agosto MD, PHD [address] [place] [address] Surgeon Neurosurgery 11/12/21 Mekhi Maddox PA-C 175 [facility] [address] [place] [address] Specialist Neurosurgery 11/12/21 documented as of this encounter
--- OUTSIDE RECORDS SUMMARY | 2024-08-13 15:38 | XMS_ITS | Encounter Summary ---
Author Organization [facility] Address [address] [place] [address] Care Team Providers Care Instructor Bridge Name Role Phone Simeon Fowler MD Unavailable [phone] Livia Hines NP Unavailable [phone] Gurmeet Agosto MD, PHD Unavailable Unava ilable Mekhi Maddox PA-C Unavailable [phone] Vinny Trujillo MD Primary Care Provider [phone] Encounter Details Date Type Department Care Team Description 09/17/2022 [facility] Medical Records [address] [place] [address] [facility] Social History Tobacco Use Types Packs/Day Years [...] suspected to have Coronavirus/COVID-19? No / Unsure 09/02/2022 7:41 AM EST documented as of this encounter Plan of Treatment Not on file documented as of this encounter Procedures Procedure Name Priority Date/Time Associated Diagnosis Comments OUTSIDE CT Routine 09/17/2022 documented in this encounter Results * OUTSIDE CT (09/17/2022) Provider Abstract RADIOLOGY documented in this encounter Visit Diagnoses Not on filedocumented in this encounter Care Teams Instructor Bridge Relationship Specialty Start Date End Date Vinny Trujillo MD [address] [place] [address] PCP - General Internal Medicine 03/19/22 Simeon Fowler MD [address] [place] [address] [address] [place] [address] [address]Rd Mate Cardiovascular Disease 04/28/21 Livia Hines NP [address] [place] [address] [address] [place] [address] Nurse Practitioner Cardiology 07/02/21 Gurmeet Agosto MD, PHD [address] [place] [address] [address] [place] [address] Surgeon Neurosurgery 11/12/21 Mekhi Maddox PA-C 175 [facility] [address] [place] [address] Specialist Neurosurgery 11/12/21 documented as of this encounter
--- OUTSIDE RECORDS SUMMARY | 2024-08-13 15:38 | XMS_ITS | Encounter Summary ---
Author Organization [facility] Address [address] [place] [address] Care Team Providers Care Relations Manager Name Role Phone Vinny Trujillo MD Primary Care Provider [phone] Simeon Fowler MD Unavailable [phone] Livia Hines NP Unavailable [phone] Emile Clinton MD Primary Care Provider [phone] Freda Knapp MD Primary Care Provider U Gurmeet Medina MD, PHD Unavailable Oneydava Mekhi Sotelo PA-C Unavailable [phone] Vinny Trujillo MD Primary Care Provider [phone] Encounter Details Date Type Department Care Team Description 04/25/2021 Hospital Medical Records [address] [place], [place] [id number] [place] [address] Social History Tobacco Use Types Packs/Day Years [...] on filedocumented in this encounter Care Teams Relations Manager Relationship Specialty Start Date End Date Vinny Trujillo MD [address] [place] [address] PCP - General Internal Medicine 04/22/21 10/11/21 Emile Clinton MD [address] [place] [address] PCP - General Internal Medicine 10/12/21 10/15/21 Freda Knapp MD [address] [place] [address] PCP - General Internal Medicine 10/16/21 03/18/22 Vinny Trujillo MD [address] [place] [address] PCP - General Internal Medicine 03/19/22 Simeon Fowler MD [address] [place] [address] [address] [place] [address] Director Sales Cardiovascular Disease 04/28/21 Livia Hines NP [address] [place] [address] [address] [place] [address] Nurse Practitioner Cardiology 07/02/21 Gurmeet Agosto MD, PHD [address] [place] [address] Surgeon Neurosurgery 11/12/21 Mekhi Maddox PA-C 175 [facility] [address] [place] [address] Specialist Neurosurgery 11/12/21 documented as of this encounter
--- OUTSIDE RECORDS SUMMARY | 2024-08-13 15:38 | XMS_ITS | Encounter Summary ---
Author Organization [facility] Address [address] [place] [address] Care Team Providers Care Dining Server Name Role Phone Vinny Trujillo MD Primary Care Provider [phone] Simeon Fowler MD Unavailable [phone] Livia Hines NP Unavailable [phone] Emile Clintno MD Primary Care Provider [phone] Freda Knapp MD Primary Care Provider U Gurmeet Medina MD, PHD Unavailable Mekhi Maier PA-C Unavailable [phone] Vinny Trujillo MD Primary Care Provider [phone] Encounter Details Date Type Department Care Team Description 10/07/2021 Hospital Medical Records [address] [place] [address] Azul Kong PA-C Social History Tobacco Use Types Packs/Day Years [...] Date/Time Associated Diagnosis Comments OUTSIDE LAB Routine 10/14/2021 OUTSIDE LAB Routine 10/14/2021 documented in this encounter Results * OUTSIDE LAB (10/14/2021) Provider Abstract LAB * OUTSIDE LAB (10/14/2021) Provider Abstract LAB documented in this encounter Visit Diagnoses Not on filedocumented in this encounter Care Teams Dining Server Relationship Specialty Start Date End Date Vinny Trujillo MD [address] [place] [address] PCP - General Internal Medicine 04/22/21 10/11/21 Emile Clinton MD [address] [place] [address] PCP - General Internal Medicine 10/12/21 10/15/21 Freda Knapp MD [address] [place] [address] PCP - General Internal Medicine 10/16/21 03/18/22 Vinny Trujillo MD [address] [place] [address] PCP - General Internal Medicine 03/19/22 Simeon Fowler MD [address] [place] [address] [place] [address] Senior Sourcing Manager Cardiovascular Disease 04/28/21 Livia Hines NP [address] [place] [address] [address] [place] [address] Nurse Practitioner Cardiology 07/02/21 Gurmeet Agosto MD, PHD [address] [place] [address] Surgeon Neurosurgery 11/12/21 Mekhi Maddox PA-C 175 [facility] [address] [place] [address] Specialist Neurosurgery 11/12/21 documented as of this encounter
--- OUTSIDE RECORDS SUMMARY | 2024-08-13 15:38 | XMS_ITS | Encounter Summary ---
Author Organization [facility] Address [address] [place] [address] Care Team Providers Care Cut Off Sawyer Log Name Role Phone Ambreen Hazel MD Primary Care Provider Oneyda Vinny Arguello MD Primary Care Provider [phone] Simeon Fowler MD Unavailable [phone] Livia Hines NP Unavailable [phone] Emile Clinton MD Primary Care Provider [phone] Freda Knapp MD Primary Care Provider U Gurmeet Medina MD, PHD Unavailable Unava Mekhi Sotelo PA-C Unavailable [phone] Vinny Trujillo MD Primary Care Provider [phone] Reason for Visit * Reason Comments E-prescribe Rx Request Encounter Details Date Type Department Care Team Description 07/04/2020 Refill Allergy [place] [address] [place] [address] Allison Allen MD E-prescribe Rx Request Social History Tobacco [...] have Coronavirus / COVID-19? No / Unsure 06/05/2020 2:28 PM EST documented as of this encounter Miscellaneous Notes * Telephone Encounter - Parrish Ryan M.A. - 07/04/2020 2:40 PM EST Faxed to pharmacy I spoke with patient. She is aware of message below and for further refills she has booked her f/u medication check for 07/25/2020, with Vijaya Reese PA-C as advised. Patient verbalized understandingof message and will call office with any questions or concerns. * Telephone Encounter - Allison Allen MD - 07/04/2020 1:35 PM EST Patient needs appt for additional refills * Telephone Encounter - Parrish Ryan M.A. - 07/04/2020 8:25 AM EST JAVED- 01/03/2020 F/U- No f/u scheduled documented in this encounter Plan of Treatment Not on file documented as of this encounter Visit Diagnoses Not on filedocumented in this encounter Care Teams Cut Off Sawyer Log Relationship Specialty Start Date End Date Ambreen Hazel MD PCP - General Internal Medicine 07/27/19 1 Vinny Trujillo MD [address] [place] [address] PCP - General Internal Medicine 04/22/21 10/11/21 Emile Clinton MD [address] [place] [address] PCP - General Internal Medicine 10/12/21 10/15/21 Freda Knapp MD [address] [place] [address] PCP - General Internal Medicine 10/16/21 03/18/22 Vinny Trujillo MD [address] [place] [address] PCP - General Internal Medicine 03/19/22 Simeon Fowler MD [address] [place] [address] [address] [place] [address] Leadership Development Instructor Cardiovascular Disease 04/28/21 Livia Hines NP [address] [place] [address] [address] [place] [address] Nurse Practitioner Cardiology 07/02/21 Gurmeet Agosto MD, PHD [address] [place] [address] Surgeon Neurosurgery 11/12/21 Mekhi Maddox PA-C 175 [facility] [address] [place] [address] Specialist Neurosurgery 11/12/21 documented as of this encounter
--- OUTSIDE RECORDS SUMMARY | 2024-08-13 15:38 | XMS_ITS | Encounter Summary ---
Author Organization [facility] Address [address] [place] [address] Care Team Providers Care Collar Feller Name Role Phone Simeon Fowler MD Unavailable [phone] Livia Hines NP Unavailable [phone] Gurmeet Agosto MD, PHD Unavailable Unava Mkehi Sotelo PA-C Unavailable [phone] Vinny Trujillo MD Primary Care Provider Encounter Details Date Type Department Care Team Description 08/13/2022 Truck Despatcher Report Medical Records [address] [place] [address] Loco Dickey MD Social History Tobacco Use Types Packs/Day [...] suspected to have Coronavirus/COVID-19? No / Unsure 08/12/2022 12:41 PM EST documented as of this encounter Plan of Treatment Not on file documented as of this encounter Visit Diagnoses Not on filedocumented in this encounter Care Teams Collar Feller Relationship Specialty Start Date End Date Vinny Trujillo MD [facility] [place] [address] PCP - General Internal Medicine 03/19/22 Simeon Fowler MD [address] [place] [address] [address] [place] [address] Medical Technicians Cardiovascular Disease 04/28/21 Livia Hines NP [address] [place] [address] [address] [place] [address] Nurse Practitioner Cardiology 07/02/21 Gurmeet Agosto MD, PHD [address] [place] [address] [address] [place] [address] Surgeon Neurosurgery 11/12/21 Mekhi Maddox PA-C 175 [facility] [address] [place] [address] Specialist Neurosurgery 11/12/21 documented as of this encounter
--- OUTSIDE RECORDS SUMMARY | 2024-08-13 15:38 | XMS_ITS | Encounter Summary ---
Author Organization [facility] Address [address] [place] [address] Care Team Providers Care Warehouseman Name Role Phone Simeon Fowler MD Unavailable [phone] Livia Hines NP Unavailable [phone] Gurmeet Agosto MD, PHD Unavailable Unava Mekhi Sotelo PA-C Unavailable [phone] Vinny Trujillo MD Primary Care Provider [phone] Reason for Visit * Reason Onset Date Comments Provider Call Back 08/17/2023 Encounter Details Date Type Department Care Team Description 08/17/2023 Telephone Adult Medicine [address] [address] Vinny Trujillo MD [address] [place] [address] Provider Call Back Social History Tobacco Use Types Packs/Day Years Used Date Smoking Tobacco: Never Passive Smoke Exposure: Never Smokeless Tobacco: Never Alcohol Use Standard Drinks/Week Comments No 0 (1 standard drink = 0.6 oz pur e alcohol) Sex Assigned at Date Recorded Not on file Job Start Date Occupation Industry Not on file Not on file Not on file documented as of this encounter Miscellaneous Notes * Telephone Encounter - Vinny Trujillo MD - 08/17/2023 3:34 PM EST Noted. Thank you for informing me. * Telephone Encounter - Lissa Ragland - 08/17/2023 1:14 PM EST Caller requesting call back from provider: Is the caller the patient? YES If caller is not the patient, what is the callers name? N/A Callers relationship to patient? N/A If person calling is not the patient themselves, is there a verbal release in FYI or permanent comments for this person: NO Reason for call back: Pt want to let Dr Trujillo know she missed today;s appt because she was sent to [facility] by her [facility] doctor. Caller offered to speak with the nurse for assistance: YES Response: Patient offered to speak with nurse for assistance and patient agreed. Message forwarded to nurse. documented in this encounter Plan of Treatment Not on file documented as of this encounter Visit Diagnoses Not on filedocumented in this encounter Care Teams Warehouseman Relationship Specialty Start Date End Date Vinny Trujillo MD [address] [place] [address] PCP - General Internal Medicine 03/19/22 Simeon Fowler MD [address] [place] [address] [place] [address] Lens Mold Setter Cardiovascular Disease 04/28/21 Livia Hines NP [address] [place] [address] [place] [address] Nurse Practitioner Cardiology 07/02/21 Gurmeet Agosto MD, PHD [address] [place] [address] [address] [place] [address] Surgeon Neurosurgery 11/12/21 Mekhi Maddox PA-C 175 [facility] [address] [place] [address] Specialist Neurosurgery 11/12/21 documented as of this encounter
--- OUTSIDE RECORDS SUMMARY | 2024-08-13 15:38 | XMS_ITS | Encounter Summary ---
Author Organization [facility] Address [address] [place] [address] Care Team Providers Care Saloon Keeper Name Role Phone Ambreen Hazel MD Primary Care Provider Oneyda Vinny Arguello MD Primary Care Provider [phone] Simeon Fowler MD Unavailable [phone] Livia Hines NP Unavailable [phone] Emile Clinton MD Primary Care Provider [phone] Freda Knapp MD Primary Care Provider U Gurmeet Medina MD, PHD Unavailable UnaMekhi Mcdowell PA-C Unavailable [phone] Vinny Trujillo MD Primary Care Provider [phone] Reason for Visit * Reason Onset Date Comments E-prescribe Rx Request 11/29/[address] 20 MG CAPSULE Encounter Details Date Type Department Care Team Description 11/29/2019 Refill Gastroenterology - [place] [facility] [address] [place] [id number] Christian Bautista PA-C E-prescribe Rx Request (OMEPRAZOLE DR 20 MG CAPSULE) Social History Tobacco Use Types Packs/Day Years [...] on filedocumented in this encounter Care Teams Saloon Keeper Relationship Specialty Start Date End Date Ambreen Hazel MD PCP - General Internal Medicine 07/27/19 Vinny Trujillo MD [address] [place] [address] PCP - General Internal Medicine 04/22/21 10/11/21 Emile Clinton MD [address] [place] [address] PCP - General Internal Medicine 10/12/21 10/15/21 Freda Knapp MD [address] [place] [address] PCP - General Internal Medicine 10/16/21 03/18/22 Vinny Trujillo MD [address] [place] [address] PCP - General Internal Medicine 03/19/22 Simeon Fowler MD [address] [place] [address] [address] [place] [address] Carpenters Helper Cardiovascular Disease 04/28/21 Livia Hines NP [address] [place] [address] [address] [place] [address] Nurse Practitioner Cardiology 07/02/21 Gurmeet Agosto MD, PHD [address] [place] [address] Surgeon Neurosurgery 11/12/21 Mekhi Maddox PA-C 175 [facility] [address] [place] [address] Specialist Neurosurgery 11/12/21 documented as of this encounter
--- OUTSIDE RECORDS SUMMARY | 2024-08-13 15:38 | XMS_ITS | Encounter Summary ---
Author Organization [facility] Address [address] [place] [address] Care Team Providers Care Fast Food Shift Supervisor Name Role Phone Vinny Trujillo MD Primary Care Provider [phone] Simeon Fowler MD Unavailable [phone] Livia Hines NP Unavailable [phone] Emile Clinton MD Primary Care Provider [phone] Freda Knapp MD Primary Care Provider U Gurmeet Medina MD, PHD Unavailable Oneydava Mekhi Sotelo PA-C Unavailable [phone] Vinny Trujillo MD Primary Care Provider [phone] Encounter Details Date Type Department Care Team Description 09/19/2021 Hospital Medical Records [address] [place] [address] Social History Tobacco Use Types Packs/Day Years [...] Date/Time Associated Diagnosis Comments OUTSIDE LAB Routine 09/25/2021 OUTSIDE LAB Routine 09/22/2021 OUTSIDE ECHO Routine 09/21/2021 OUTSIDE MRI/MRA Routine 09/21/[address] Routine 09/19/[address] Routine 09/19/2021 documented in this encounter Results * OUTSIDE LAB (09/25/2021) Provider Abstract LAB * OUTSIDE LAB (09/22/2021) Provider Abstract LAB * OUTSIDE MRI/MRA (09/21/2021) Provider Abstract RADIOLOGY * OUTSIDE ECHO (09/21/2021) Provider Abstract CARDIOLOGY * OUTSIDE CT (09/19/2021) Provider Abstract RADIOLOGY * OUTSIDE CT (09/19/2021) Provider Abstract RADIOLOGY documented in this encounter Visit Diagnoses Not on filedocumented in this encounter Care Teams Fast Food Shift Supervisor Relationship Specialty Start Date End Date Vinny Trujillo MD [address] [place] [address] PCP - General Internal Medicine 04/22/21 10/11/21 Emile Clinton MD [address] [place] [address] PCP - General Internal Medicine 10/12/21 10/15/21 Freda Knapp MD [address] [place] [address] PCP - General Internal Medicine 10/16/21 03/18/22 Vinny Trujillo MD [address] [place] [address] PCP - General Internal Medicine 03/19/22 Simeon Fowler MD [address] [place] [address] [address] [place] [address] Ship'S Captain Cardiovascular Disease 04/28/21 Livia Hines NP [address] [place] [address] [address] [place] [address] Nurse Practitioner Cardiology 07/02/21 Gurmeet Agosto MD, PHD [address] [place] [address] Surgeon Neurosurgery 11/12/21 Mekhi Maddox PA-C 175 [facility] [address] [place] [address] Specialist Neurosurgery 11/12/21 documented as of this encounter
--- OUTSIDE RECORDS SUMMARY | 2024-08-13 15:38 | XMS_ITS | Encounter Summary ---
Author Organization [facility] Address [address] [place] [address] Care Team Providers Care Market Director Name Role Phone Simeon Fowler MD Unavailable [phone] Livia Hines NP Unavailable [phone] Gurmeet Agosto MD, PHD Unavailable Unava Mekhi SoteloC Unavailable [phone] Vinny Trujillo MD Primary Care Provider [phone] Encounter Details Date Type Department Care Team Description 12/15/2022 Electron Microprobe Operator Report Medical Records [address] [place] [address] Mekhi Harper Social History Tobacco Use Types Packs/Day Years [...] suspected to have Coronavirus/COVID-19? No / Unsure 12/06/2022 9:29 AM EDT documented as of this encounter Plan of Treatment Not on file documented as of this encounter Visit Diagnoses Not on filedocumented in this encounter Care Teams Market Director Relationship Specialty Start Date End Date Vinny Trujillo [place] [address] PCP - General Internal Medicine 03/19/22 Simeon Fowler MD [address] [place] [address] [address] [place] [address] Nuclear Engineering Technician Cardiovascular Disease 04/28/21 Livia Hines NP [address] [place] [address] [address] [place] [address] Nurse Practitioner Cardiology 07/02/21 Gurmeet Agosto MD, PHD [address] [place] [address] [address] [place] [address] Surgeon Neurosurgery 11/12/21 Mekhi Maddox PA-C 175 [facility] [address] [place] [address] Specialist Neurosurgery 11/12/21 documented as of this encounter
--- OUTSIDE RECORDS SUMMARY | 2024-08-13 15:38 | XMS_ITS | Encounter Summary ---
Author Organization [facility] Address [address] [place] [address] Care Team Providers Care Dissolver Operator Name Role Phone Chanell Will MD Primary Care Provider Unavaila Ambreen Mack MD Primary Care Provider Oneyda vailable [facility], Pcp Primary Care Provider UnavailAmbreen Braden MD Primary Care Provider Oneyda vailable Vinny Trujillo MD Primary Care Provider [phone] Simeon Fowler MD Unavailable [phone] Livia Hines NP Unavailable [phone] Emile Clinton MD Primary Care Provider [phone] Freda Knapp MD Primary Care Provider U Gurmeet Medina MD, PHD Unavailable Unava ilable Mekhi Maddox PA-C Unavailable [phone] Vinny Trujillo MD Primary Care Provider [phone] Encounter Details Date Type Department Care Team Description 04/16/2015 Business Doc Medical Records [address] [place] [address] Abstract, Provider Social History Tobacco Use Types [...] on filedocumented in this encounter Care Teams Dissolver Operator Relationship Specialty Start Date End Date Chanell Will MD PCP - General Internal Medicine 03/31/15 01/04/16 Ambreen Hazel MD PCP - General Internal Medicine 01/05/16 [facility] PCP - General Internal Medicine 07/16/19 07/26/19 Ambreen Hazel MD PCP - General Internal Medicine 07/27/19 Vinny Trujillo MD [address] [place] [address] PCP - General Internal Medicine 04/22/21 10/11/21 Emile Clinton MD [address] [place] [address] PCP - General Internal Medicine 10/12/21 10/15/21 Freda Knapp MD [address] [place] [address] PCP - General Internal Medicine 10/16/21 03/18/22 Vinny Trujillo MD [address] [place] [address] PCP - General Internal Medicine 03/19/22 Simeon Fowler MD [address] [place] [address] [place] [address] Assistant Professor Of Chemistry Cardiovascular Disease 04/28/21 Livia Hines NP [address] [place] [address] [place] [address] Nurse Practitioner Cardiology 07/02/21 Gurmeet Agosto MD, PHD [address] [place] [address] Surgeon Neurosurgery 11/12/21 Mekhi Maddox PA-C 175 [facility] [address] [place] [address] Specialist Neurosurgery 11/12/21 documented as of this encounter
--- OUTSIDE RECORDS SUMMARY | 2024-08-13 15:38 | XMS_ITS | Encounter Summary ---
Author Organization [facility] Address [address] [place] [address] Care Team Providers Care Chemical Laboratory Scientist Name Role Phone Simeon Fowler MD Unavailable [phone] Livia Hines NP Unavailable [phone] Gurmeet Agosto MD, PHD Unavailable Unava Mekhi Sotelo PA-C Unavailable [phone] Vinny Trujillo MD Primary Care Provider [phone] Encounter Details Date Type Department Care Team Description 09/20/2023 Telephone Adult Medicine [address] [address] Vinny Trujillo MD [address] [place] [address] Social History Tobacco Use Types Packs/Day Years [...] on filedocumented in this encounter Care Teams Chemical Laboratory Scientist Relationship Specialty Start Date End Date Vinny Trujillo MD [address] [place] [address] PCP - General Internal Medicine 03/19/22 Simeon Fowler MD [address] [place] [address] [address] [place] [address] Parking Lot Chauffeur Cardiovascular Disease 04/28/21 Livia Hines NP [address] [place] [address] [address] [place] [address] Nurse Practitioner Cardiology 07/02/21 Gurmeet Agosto MD, PHD [address] [place] [address] [address] [place] [address] Surgeon Neurosurgery 11/12/21 Mekhi Maddox PA-C [address] [place] [address] [address] [place] [address] Specialist Neurosurgery 11/12/21 documented as of this encounter
--- OUTSIDE RECORDS SUMMARY | 2024-08-13 15:38 | XMS_ITS | Encounter Summary ---
Author Organization [facility] Address [address] [place] [address] Care Team Providers Care Educational Advisor Name Role Phone Ambreen Hazel MD Primary Care Provider Oneyda Vinny Arguello MD Primary Care Provider [phone] Simeon Fowler MD Unavailable [phone] Livia Hines NP Unavailable [phone] Emile Clinton MD Primary Care Provider [phone] Freda Knapp MD Primary Care Provider U Gurmeet Medina MD, PHD Unavailable Unava Mekhi Sotelo PA-C Unavailable [phone] Vinny Trujillo MD Primary Care Provider [phone] Reason for Visit * Reason Comments E-prescribe Rx Request Encounter Details Date Type Department Care Team Description 04/21/2020 Refill Gastroenterology - [facility] 175 [facility] [address] [place] [id number] Sin Prasad MD E-prescribe Rx Request Social [...] encounter Miscellaneous Notes * Telephone Encounter - Maria Del Rosario Reddy - 04/22/2020 8:55 AM EDT Pharmacy request do you want this pt. On this? She was last seen in 2019 documented in this encounter Plan of Treatment Not on file documented as of this encounter Visit Diagnoses Not on filedocumented in this encounter Care Teams Educational Advisor Relationship Specialty Start Date End Date Ambreen Hazel MD PCP - General Internal Medicine 07/27/19 1 Vinny Trujillo MD [address] [place] [address] PCP - General Internal Medicine 04/22/21 10/11/21 Emile Clinton MD [address] [place] [address] PCP - General Internal Medicine 10/12/21 10/15/21 Freda Knapp MD [address] [place] [address] PCP - General Internal Medicine 10/16/21 03/18/22 Vinny Trujillo MD [address] [place] [address] PCP - General Internal Medicine 03/19/22 Simeon Fowler MD [address] [place] [address] [place] [address] Environmental Management Specialist Cardiovascular Disease 04/28/21 Livia Hines NP [address] [place] [address] [address] [place] [address] Nurse Practitioner Cardiology 07/02/21 Gurmeet Agosto MD, PHD [address] [place] [address] Surgeon Neurosurgery 11/12/21 Mekhi Maddox PA-C 175 [facility] [address] [place] [address] Specialist Neurosurgery 11/12/21 documented as of this encounter
--- OUTSIDE RECORDS SUMMARY | 2024-08-13 15:38 | XMS_ITS | Encounter Summary ---
Author Organization [facility] Address [address] [place] [address] Care Team Providers Care Sales Activity Manager Name Role Phone Simeon Fowler MD Unavailable [phone] Livia Hines NP Unavailable Gurmeet Agosto MD, PHD Unavailable Unava ilMekhi Souza PA-C Unavailable [phone] Vinny Trujillo MD Primary Care Provider [phone] Reason for Visit * Reason Onset Date Comments medication problems 09/16/2023 Encounter Details Date Type Department Care Team Description 09/16/2023 Telephone Adult Medicine [address] [address] Vinny Trujillo MD [address] [place] [address] medication problems Social History Tobacco Use Types Packs/Day Years [...] encounter Miscellaneous Notes * Telephone Encounter - Carla Sawant - 09/16/2023 1:15 PM EST Patient informed. * Telephone Encounter - Jose Marcano PA-C - 09/16/2023 11:59 AM EST Once while fasting in the morning. * Telephone Encounter - Maggie Pitts L.P.NIla - 09/16/2023 11:05 AM EST Please confirm how often patient should be checking her blood sugar / daily or 4 x daily? Thank you. * Telephone Encounter - Marlys Baptiste - 09/16/2023 10:42 AM EST Who is calling? A pharmacist: Pharmacy: [facility] Pharmacist Name: [facility] Name of the medication glucose monitoring kit (FREESTYLE) monitoring kit, Glucose Blood (FREESTYLE LITE) Strip, FreeStyle Lancets Misc What is the specific problem or interaction? Which is the correct frequency of testing 1 per day or4 per day? If the patient is having a problem with taking the med - how long has the problem been going on? N/a documented in this encounter Plan of Treatment Not on file documented as of this encounter Visit Diagnoses Not on filedocumented in this encounter Care Teams Sales Activity Manager Relationship Specialty Start Date End Date Vinny Trujillo MD [address] [place] [address] PCP - General Internal Medicine 03/19/22 Simeon Fowler MD [address] [place] [address] [place] [address] Hollow Handle Bench Worker Cardiovascular Disease 04/28/21 Livia Hines NP [address] [place] [address] [address] [place] [address] Nurse Practitioner Cardiology 07/02/21 Gurmeet Agosto MD, PHD [address] [place] [address] [address] [place] [address] Surgeon Neurosurgery 11/12/21 Mekhi Maddox PA-C [address] [place] [address] [address] [place] [address] Specialist Neurosurgery 11/12/21 documented as of this encounter
--- OUTSIDE RECORDS SUMMARY | 2024-08-13 15:38 | XMS_ITS | Encounter Summary ---
Author Organization [facility] Address [address] [place] [address] Care Team Providers Care Linotype Operator Name Role Phone Vinny Trujillo MD Primary Care Provider [phone] Simeon Fowler MD Unavailable [phone] Livia Hines NP Unavailable [phone] Emile Clinton MD Primary Care Provider [phone] Freda Knapp MD Primary Care Provider U Gurmeet Medina MD, PHD Unavailable Unava Mekhi Sotelo PA-C Unavailable [phone] Vinny Trujillo MD Primary Care Provider [phone] Encounter Details Date Type Department Care Team Description 09/07/2021 Release of Information Medical Records [address] [place] [address] Abstract, Provider Social History Tobacco Use Types [...] have Coronavirus / COVID-19? No / Unsure 08/17/2021 8:15 AM EST documented as of this encounter Plan of Treatment Not on file documented as of this encounter Visit Diagnoses Not on filedocumented in this encounter Care Teams Linotype Operator Relationship Specialty Start Date End Date Vinny Trujillo MD [address] [place] [address] PCP - General Internal Medicine 04/22/21 10/11/21 Emile Clinton MD [address] [place] [address] PCP - General Internal Medicine 10/12/21 10/15/21 Freda Knapp MD [address] [place] [address] PCP - General Internal Medicine 10/16/21 03/18/22 Vinny Trujillo MD [address] [place] [address] PCP - General Internal Medicine 03/19/22 Simeon Folwer MD [address] [place] [address] [place] [address] Die Hardener Cardiovascular Disease 04/28/21 Livia Hines NP [address] [place] [address] [address] [place] [address] Nurse Practitioner Cardiology 07/02/21 Gurmeet Agosto MD, PHD [address] [place] [address] Surgeon Neurosurgery 11/12/21 Mekhi Maddox PA-C [address] [place] [address] [address] [place] [address] Specialist Neurosurgery 11/12/21 documented as of this encounter
--- OUTSIDE RECORDS SUMMARY | 2024-08-13 15:38 | XMS_ITS | Encounter Summary ---
Author Organization [facility] Address [address] [place] [address] Care Team Providers Care Water Chaser Name Role Phone Ambreen Hazel MD Primary Care Provider Oneyda Vinny Arguello MD Primary Care Provider [phone] Simeon Fowler MD Unavailable [phone] Livia Hines NP Unavailable [phone] Emile Clinton MD Primary Care Provider [phone] Freda Knapp MD Primary Care Provider U Gurmeet Medina MD, PHD Unavailable UnaMekhi Mcdowell PA-C Unavailable [phone] Vinny Trujillo MD Primary Care Provider [phone] Reason for Visit * Reason Onset Date Comments Rash 04/10/2020 Encounter Details Date Type Department Care Team Description 04/10/2020 Telephone Adult Medicine [address] [address] Ambreen Hazel MD Rash Social History Tobacco Use Types Packs/Day Years [...] encounter Miscellaneous Notes * Telephone Encounter - Ambreen Augustin - 04/11/2020 10:34 AM EDT Left message for patient to call back. Needs an appt. * Telephone Encounter - Thelma Buckner L.P.N. - 04/10/2020 1:01 PM EDT Please book an appt * Telephone Encounter - Fadumo Aguilera - 04/10/2020 11:41 AM EDT Symptoms patient is presenting: the pt has rash on both her hands that is very dry and her skin is cracking For ALL patients calling to schedule any appointment (routine, sick visit, follow up, consult, etc.) in the outpatient setting please ask the following questions: ?? Do you have fever of higher than 101, sore throat with difficulty swallowing or severe shortnessof breath? NO If YES to any of these above symptoms, send a message to triage and do not book. Red dot. If no, an audio or video visit should be booked. ?? Have you had close contact with someone with Coronavirus in the last 14 days? NO ?? Have you traveled abroad? NO ?? Have you traveled recently to another state outside of [place], [place], [place], [place], [place], [place], [place]? NO o If yes, did you quarantine for 14 days or have a negative covid test? NO If yes to any of the above, patient is not to be scheduled in office until after 14 day quarantine or negative covid test. If pain or injury related was it due to an accident at work or from a motor vehicle accident? NO If yes, gather 3rd republican insurance information Date of accident/Injury: How long has patient had these symptoms?: PCP: Ambreen Hazel Payor: [employer] / Plan: [facility] [employer] / Product Type: HMO [id number] documented in this encounter Plan of Treatment Not on file documented as of this encounter Visit Diagnoses Not on filedocumented in this encounter Care Teams Water Chaser Relationship Specialty Start Date End Date Ambreen Hazel MD PCP - General Internal Medicine 07/27/19 Vinny Trujillo MD [address] [place] [address] PCP - General Internal Medicine 04/22/21 10/11/21 Emile Clinton MD [address] [place] [address] PCP - General Internal Medicine 10/12/21 10/15/21 Freda Knapp MD [address] [place] [address] PCP - General Internal Medicine 10/16/21 03/18/22 Vinny Trujillo MD [address] [place] [address] PCP - General Internal Medicine 03/19/22 Simeon Fowler MD [address] [place] [address] [place] [address] Grey Roll Man Cardiovascular Disease 04/28/21 Livia Hines NP [address] [place] [address] [address] [place] [address] Nurse Practitioner Cardiology 07/02/21 Gurmeet Agosto MD, PHD [address] [place] [address] Surgeon Neurosurgery 11/12/21 Mekhi Maddox PA-C 175 [facility] [address] [place] [address] Specialist Neurosurgery 11/12/21 documented as of this encounter
--- OUTSIDE RECORDS SUMMARY | 2024-08-13 15:38 | XMS_ITS | Encounter Summary ---
Author Organization [facility] Address [address] [place] [address] Care Team Providers Care Director Risk Name Role Phone Simeon Fowler MD Unavailable [phone] Livia Hines NP Unavailable [phone] Gurmeet Agosto MD, PHD Unavailable Unava Mekhi Sotelo PA-C Unavailable [phone] Vinny Trujillo MD Primary Care Provider [phone] Encounter Details Date Type Department Care Team Description 05/17/2023 Orders Only Medical Records [address] [place] [address] Abstract, Provider Social History Tobacco Use Types [...] suspected to have Coronavirus/COVID-19? No / Unsure 05/10/2023 11:08 AM EDT documented as of this encounter Plan of Treatment Not on file documented as of this encounter Procedures Procedure Name Priority Date/Time Associated Diagnosis Comments OUTSIDE CT Routine 05/11/2023 documented in this encounter Results * OUTSIDE CT (05/11/2023) Ting Rader MD RADIOLOGY documented in this encounter Visit Diagnoses Not on filedocumented in this encounter Care Teams Director Risk Relationship Specialty Start Date End Date Vinny Trujillo MD [facility] [place] [address] PCP - General Internal Medicine 03/19/22 Simeon Fowler MD [address] [place] [address] [address] [place] [address] Ecotherapist Cardiovascular Disease 04/28/21 Livia Hines NP [address] [place] [address] [address] [place] [address] Nurse Practitioner Cardiology 07/02/21 Gurmeet Agosto MD, PHD [address] [place] [address] [address] [place] [address] Surgeon Neurosurgery 11/12/21 Mekhi Maddox PA-C [address] [place] [address] [address] [place] [address] Specialist Neurosurgery 11/12/21 documented as of this encounter
--- OUTSIDE RECORDS SUMMARY | 2024-08-13 15:38 | XMS_ITS | Encounter Summary ---
Author Organization [facility] Address [address] [place] [address] Care Team Providers Care Claims Service Adjustor Name Role Phone Vinny Trujillo MD Primary Care Provider [phone] Simeon Fowler MD Unavailable [phone] Livia Hines NP Unavailable [phone] Emile Clinton MD Primary Care Provider Freda Knapp MD Primary Care Provider U Gurmeet Medina MD, PHD Unavailable Mekhi Maier PA-C Unavailable [phone] Vinny Trujillo MD Primary Care Provider [phone] Encounter Details Date Type Department Care Team Description 09/15/2021 Hospital Medical Records [address] [place] [address] Regina Leavitt PA-C Social History Tobacco Use Types Packs/Day [...] on filedocumented in this encounter Care Teams Claims Service Adjustor Relationship Specialty Start Date End Date Vinny Trujillo MD [address] [place] [address] PCP - General Internal Medicine 04/22/21 10/11/21 Emile Clinton MD [address] [place] [address] PCP - General Internal Medicine 10/12/21 10/15/21 Freda Knapp MD [address] [place] [address] PCP - General Internal Medicine 10/16/21 03/18/22 Vinny Trujillo MD [address] [place] [address] PCP - General Internal Medicine 03/19/22 Simeon Fowler MD [address] [place] [address] [address] [place] [address] Atm Mechanic Cardiovascular Disease 04/28/21 Livia Hines NP [address] [place] [address] [address] [place] [address] Nurse Practitioner Cardiology 07/02/21 Gurmeet Agosto MD, PHD [address] [place] [address] Surgeon Neurosurgery 11/12/21 Mekhi Maddox PA-C [address] [place] [address] [address] [place] [address] Specialist Neurosurgery 11/12/21 documented as of this encounter
--- OUTSIDE RECORDS SUMMARY | 2024-08-13 15:38 | XMS_ITS | Encounter Summary ---
Author Organization [facility] Address [address] [place] [address] Care Team Providers Care Leadlighter Name Role Phone Vinny Trujillo MD Primary Care Provider [phone] Simeon Fowler MD Unavailable [phone] Livia Hines NP Unavailable [phone] Emile Clinton MD Primary Care Provider [phone] Freda Knapp MD Primary Care Provider U Gurmeet Medina MD, PHD Unavailable Oneydava Mekhi Sotelo PA-C Unavailable [phone] Vinny Trujillo MD Primary Care Provider [phone] Encounter Details Date Type Department Care Team Description 04/28/2021 Hospital Medical Records [address] [place] [address] Milagros Maldonado PA-C Social History Tobacco Use Types Packs/Day [...] Date/Time Associated Diagnosis Comments OUTSIDE LAB Routine 04/28/2021 OUTSIDE ECHO Routine 04/27/2021 documented in this encounter Results * OUTSIDE LAB (04/28/2021) Provider Abstract LAB * OUTSIDE ECHO (04/27/2021) Provider Abstract CARDIOLOGY documented in this encounter Visit Diagnoses Not on filedocumented in this encounter Care Teams Leadlighter Relationship Specialty Start Date End Date Vinny Trujillo MD [address] [place] [address] PCP - General Internal Medicine 04/22/21 10/11/21 Emile Clinton MD [address] [place] [address] PCP - General Internal Medicine 10/12/21 10/15/21 Freda Knapp MD [address] [place] [address] PCP - General Internal Medicine 10/16/21 03/18/22 Vinny Trujillo MD [address] [place] [address] PCP - General Internal Medicine 03/19/22 Simeon Fowler MD [address] [place] [address] [place] [address] Warp Knitter Helper Cardiovascular Disease 04/28/21 Livia Hines NP [address] [place] [address] [address] [place] [address] Nurse Practitioner Cardiology 07/02/21 Gurmeet Agosto MD, PHD [address] [place] [address] Surgeon Neurosurgery 11/12/21 Mekhi Maddox PA-C 175 [facility] [address] [place] [address] Specialist Neurosurgery 11/12/21 documented as of this encounter
--- OUTSIDE RECORDS SUMMARY | 2024-08-13 15:38 | XMS_ITS | Encounter Summary ---
Author Organization [facility] Address [address] [place] [address] Care Team Providers Care Cardiology Clinical Consultant Name Role Phone Vinny Trujillo MD Primary Care Provider [phone] Simeon Fowler MD Unavailable [phone] Livia Hines NP Unavailable [phone] Emile Clinton MD Primary Care Provider [phone] Freda Knapp MD Primary Care Provider U Gurmeet Medina MD, PHD Unavailable Mekhi Maier PA-C Unavailable [phone] Vinny Trujillo MD Primary Care Provider [phone] Encounter Details Date Type Department Care Team Description 10/07/2021 Hospital Medical Records [address] [place] [address] Cassi Durham PA-C [address] [place] [address] Social History Tobacco Use Types Packs/Day Years [...] on filedocumented in this encounter Care Teams Cardiology Clinical Consultant Relationship Specialty Start Date End Date Vinny Trujillo MD [address] [place] [address] PCP - General Internal Medicine 04/22/21 10/11/21 Emile Clinton MD [address] [place] [address] PCP - General Internal Medicine 10/12/21 10/15/21 Freda Knapp MD [address] [place] [address] PCP - General Internal Medicine 10/16/21 03/18/22 Vinny Trujillo MD [address] [place] [address] PCP - General Internal Medicine 03/19/22 Simeon Fowler MD [address] [place] [address] [address] [place] [address] Costume Shop Manager Cardiovascular Disease 04/28/21 Livia Hines NP [address] [place] [address] [address] [place] [address] Nurse Practitioner Cardiology 07/02/21 Gurmeet Agosto MD, PHD [address] [place] [address] Surgeon Neurosurgery 11/12/21 Mekhi Maddox PA-C [address] [place] [address] [address] [place] [address] Specialist Neurosurgery 11/12/21 documented as of this encounter
--- OUTSIDE RECORDS SUMMARY | 2024-08-13 15:38 | XMS_ITS | Encounter Summary ---
Author Organization [facility] Address [address] [place] [address] Care Team Providers Care Tableau Analyst Name Role Phone Simeon Fowler MD Unavailable [phone] Livia Hines NP Unavailable [phone] Gurmeet Agosto MD, PHD Unavailable Unava Mekhi Sotelo PA-C Unavailable [phone] Vinny Trujillo MD Primary Care Provider [phone] Encounter Details Date Type Department Care Team Description 12/26/2022 SCAN Medical Records [address] [place] [address] Abstract, Provider Social History Tobacco Use Types [...] Date/Time Associated Diagnosis Comments OUTSIDE LAB Routine 12/26/2022 OUTSIDE LAB Routine 12/26/2022 documented in this encounter Results * OUTSIDE LAB (12/26/2022) Provider Abstract LAB * OUTSIDE LAB (12/26/2022) Provider Abstract LAB documented in this encounter Visit Diagnoses Not on filedocumented in this encounter Care Teams Tableau Analyst Relationship Specialty Start Date End Date Vinny Trujillo MD [facility] [place] [address] PCP - General Internal Medicine 03/19/22 Simeon Fowler MD [address] [place] [address] [address] [place] [address] Arch Support Technician Cardiovascular Disease 04/28/21 Livia Hines NP [address] [place] [address] [place] [address] Nurse Practitioner Cardiology 07/02/21 Gurmeet Agosto MD, PHD [address] [place] [address] [address] [place] [address] Surgeon Neurosurgery 11/12/21 Mekhi Maddox PA-C [address] [place] [address] [address] [place] [address] Specialist Neurosurgery 11/12/21 documented as of this encounter
--- OUTSIDE RECORDS SUMMARY | 2024-08-13 15:38 | XMS_ITS | Encounter Summary ---
Author Organization [facility] Address [address] [place] [address] Care Team Providers Care Copy Operator Name Role Phone Ambreen Hazel MD Primary Care Provider Oneyda Vinny Arguello MD Primary Care Provider [phone] Simeon Fowler MD Unavailable [phone] Livia Hines NP Unavailable [phone] Emile Clinton MD Primary Care Provider [phone] Freda Knapp MD Primary Care Provider U Gurmeet Medina MD, PHD Unavailable Unava Mekhi Sotelo PA-C Unavailable [phone] Vinny Trujillo MD Primary Care Provider [phone] Reason for Visit * Reason Comments E-prescribe Rx Request Encounter Details Date Type Department Care Team Description 08/24/2020 Refill Gastroenterology [facility] [address] [facility] [address] [place] [id number] Sin Prasad MD E-prescribe Rx Request Social [...] have Coronavirus / COVID-19? No / Unsure 08/22/2020 9:03 AM EST documented as of this encounter Plan of Treatment Not on file documented as of this encounter Visit Diagnoses Not on filedocumented in this encounter Care Teams Copy Operator Relationship Specialty Start Date End Date Ambreen Hazel MD PCP - General Internal Medicine 07/27/19 Vinny Trujillo MD [address] [place] [address] PCP - General Internal Medicine 04/22/21 10/11/21 Emile Clinton MD [address] [place] [address] PCP - General Internal Medicine 10/12/21 10/15/21 Freda Knapp MD [address] [place] [address] PCP - General Internal Medicine 10/16/21 03/18/22 Vinny Trujillo MD [address] [place] [address] PCP - General Internal Medicine 03/19/22 Simeon Fowler MD [address] [place] [address] [place] [address] Bias Machine Operator Helper Cardiovascular Disease 04/28/21 Livia Hines NP [address] [place] [address] [place] [address] Nurse Practitioner Cardiology 07/02/21 Gurmeet Agosto MD, PHD [address] [place] [address] Surgeon Neurosurgery 11/12/21 Mekhi Maddox PA-C [address] [facility] [address] [place] [address] Specialist Neurosurgery 11/12/21 documented as of this encounter
--- OUTSIDE RECORDS SUMMARY | 2024-08-13 15:38 | XMS_ITS | Encounter Summary ---
Author Organization [facility] Address [address] [place] [address] Care Team Providers Care Test Facility Engineer Name Role Phone Simeon Fowler MD Unavailable [phone] Livia Hines NP Unavailable [phone] Freda Knapp MD Primary Care Provider Gurmeet Medina MD, PHD Unavailable Mekhi Maier PA-C Unavailable [phone] Vinny Trujillo MD Primary Care Provider [phone] Reason for Visit * Reason Comments E-prescribe Rx Request Encounter Details Date Type Department Care Team Description 10/18/2021 Refill Gastroenterology - [place] 175 [facility] [address] [place] [address] Sin Prasad MD E-prescribe Rx [...] on filedocumented in this encounter Care Teams Test Facility Engineer Relationship Specialty Start Date End Date Freda Knapp MD [address] [place] [address] [address] [place] [address] PCP - General Internal Medicine 10/16/21 03/18/22 Vinny Trujillo MD [address] [place] [address] PCP - General Internal Medicine 03/19/22 Simeon Fowler MD [address] [place] [address] [address] [place] [address] Ticket Worker Cardiovascular Disease 04/28/21 Livia Hines NP [address] [place] [address] [address] [place] [address] Nurse Practitioner Cardiology 07/02/21 Gurmeet Agosto MD, PHD [address] [place] [address] [address] [place] [address] Surgeon Neurosurgery 11/12/21 Mekhi Maddox PA-C [address] [place] [address] [address] [place] [address] Specialist Neurosurgery 11/12/21 documented as of this encounter
--- OUTSIDE RECORDS SUMMARY | 2024-08-13 15:38 | XMS_ITS | Encounter Summary ---
Author Organization [facility] Address [address] [place] [address] Care Team Providers Care Pie Chef Name Role Phone Vinny Trujillo MD Primary Care Provider [phone] Simeon Fowler MD Unavailable [phone] Livia Hines NP Unavailable [phone] Emile Clinton MD Primary Care Provider [phone] Freda Knapp MD Primary Care Provider U Gurmeet Medina MD, PHD Unavailable Oneydava Mekhi Sotelo PA-C Unavailable [phone] Vinny Trujillo MD Primary Care Provider [phone] Encounter Details Date Type Department Care Team Description 09/16/2021 Hospital Medical Records [address] [place] [address] Manohar Hayes PA Social History Tobacco Use Types Packs/Day Years [...] on filedocumented in this encounter Care Teams Pie Chef Relationship Specialty Start Date End Date Vinny Trujillo MD [address] [place] [address] PCP - General Internal Medicine 04/22/21 10/11/21 Emile Clinton MD [address] [place] [address] PCP - General Internal Medicine 10/12/21 10/15/21 Freda Knapp MD [address] [place] [address] PCP - General Internal Medicine 10/16/21 03/18/22 Vinny Trujillo MD [address] [place] [address] PCP - General Internal Medicine 03/19/22 Simeon Fowler MD [address] [place] [address] [place] [address] Lease Buyer Cardiovascular Disease 04/28/21 Livia Hines NP [address] [place] [address] [place] [address] Nurse Practitioner Cardiology 07/02/21 Gurmeet Agosto MD, PHD [address] [place] [address] Surgeon Neurosurgery 11/12/21 Mekhi Maddox PA-C [address] [place] [address] [address] [place] [address] Specialist Neurosurgery 11/12/21 documented as of this encounter
--- OUTSIDE RECORDS SUMMARY | 2024-08-13 15:38 | XMS_ITS | Encounter Summary ---
Author Organization [facility] Address [address] [place] [address] Care Team Providers Care Cardiographer Name Role Phone Simeon Fowler MD Unavailable [phone] Livia Hines NP Unavailable [phone] Gurmeet Agosto MD, PHD Unavailable Unava Mekhi Sotelo PA-C Unavailable [phone] Vinny Trujillo MD Primary Care Provider [phone] Encounter Details Date Type Department Care Team Description 11/15/2022 Production Control Clerk Report Medical Records [address] [place] [address] Loco Dickey MD Social History Tobacco Use [...] suspected to have Coronavirus/COVID-19? No / Unsure 11/15/2022 11:50 AM EDT documented as of this encounter Plan of Treatment Not on file documented as of this encounter Visit Diagnoses Not on filedocumented in this encounter Care Teams Cardiographer Relationship Specialty Start Date End Date Vinny Trujillo MD [facility] [place] [address] PCP - General Internal Medicine 03/19/22 Simeon Fowler MD [address] [place] [address] [address] [place] [address] Cat Breeder Cardiovascular Disease 04/28/21 Livia Hines NP [address] [place] [address] [address] [place] [address] Nurse Practitioner Cardiology 07/02/21 Gurmeet Agosto MD, PHD [address] [place] [address] [address] [place] [address] Surgeon Neurosurgery 11/12/21 Mekhi Maddox PA-C [address] [place] [address] [address] [place] [address] Specialist Neurosurgery 11/12/21 documented as of this encounter
--- OUTSIDE RECORDS SUMMARY | 2024-08-13 15:38 | XMS_ITS | Encounter Summary ---
Author Organization [facility] Address [address] [place] [address] Care Team Providers Care Ticket Speculator Name Role Phone Simeon Fowler MD Unavailable [phone] Livia Hines NP Unavailable [phone] Gurmeet Agosto MD, PHD Unavailable Unava Mekhi Sotelo PA-C Unavailable [phone] Vinny Trujillo MD Primary Care Provider [phone] Encounter Details Date Type Department Care Team Description 09/16/2023 Orders Only Medicine/Pediatrics - [address] [id number] Jose Marcano PA-C [address] [place] [address] Social History Tobacco Use Types Packs/Day Years [...] on filedocumented in this encounter Care Teams Ticket Speculator Relationship Specialty Start Date End Date Vinny Trujillo MD [address] [place] [address] PCP - General Internal Medicine 03/19/22 Simeon Fowler MD [address] [place] [address] [address] [place] [address] Bindery Technician Cardiovascular Disease 04/28/21 Livia Hines NP [address] [place] [address] [address] [place] [address] Nurse Practitioner Cardiology 07/02/21 Gurmeet Agosto MD, PHD [address] [place] [address] [address] [place] [address] Surgeon Neurosurgery 11/12/21 Mekhi Maddox PA-C 175 [facility] [address] [place] [address] Specialist Neurosurgery 11/12/21 documented as of this encounter
--- OUTSIDE RECORDS SUMMARY | 2024-08-13 15:38 | XMS_ITS | Encounter Summary ---
Author Organization [facility] Address [address] [place] [address] Care Team Providers Care Top Lift Nailer Name Role Phone Simeon Fowler MD Unavailable [phone] Livia Hines NP Unavailable [phone] Gurmeet Agosto MD, PHD Unavailable Unava Mekhi Sotelo PA-C Unavailable [phone] Vinny Trujillo MD Primary Care Provider [phone] Encounter Details Date Type Department Care Team Description 09/06/2023 SCAN Medical Records [address] [place] [address] [facility] Social History Tobacco Use Types Packs/Day Years [...] on filedocumented in this encounter Care Teams Top Lift Nailer Relationship Specialty Start Date End Date Vinny Trujillo MD [facility] [place], [place] [id number] PCP - General Internal Medicine 03/19/22 Simeon Fowler MD [address] [place] [address] [address] [place], [place] [address] Lye Machine Operator Cardiovascular Disease 04/28/21 Livia Hines, JOHN [address] [place] [address] [address] [place] [address] Nurse Practitioner Cardiology 07/02/21 Gurmeet Agosto MD, PHD [address] [place] [address] [address] [place] [address] Surgeon Neurosurgery 11/12/21 Mekhi Maddox PA-C [address] [place] [address] [address] [place] [address] Specialist Neurosurgery 11/12/21 documented as of this encounter
--- OUTSIDE RECORDS SUMMARY | 2024-08-13 15:38 | XMS_ITS | Encounter Summary ---
Author Organization [facility] Address [address] [place] [address] Care Team Providers Care Windows Security Analyst Name Role Phone Ambreen Hazel MD Primary Care Provider Oneyda Vinny Arguello MD Primary Care Provider [phone] Simeon Fowler MD Unavailable [phone] Livia Hines NP Unavailable [phone] Emile Clinton MD Primary Care Provider [phone] Freda Knapp MD Primary Care Provider U Gurmeet Medina MD, PHD Unavailable Unava Mekhi Sotelo PA-C Unavailable [phone] Vinny Trujillo MD Primary Care Provider [phone] Encounter Details Date Type Department Care Team Description 10/02/2020 Marine Reporter Report Medical Records [address] [place] [address] Loco Dickey MD Social History Tobacco Use [...] have Coronavirus / COVID-19? No / Unsure 09/04/2020 3:45 PM EST documented as of this encounter Plan of Treatment Not on file documented as of this encounter Visit Diagnoses Not on filedocumented in this encounter Care Teams Windows Security Analyst Relationship Specialty Start Date End Date Ambreen Hazel MD PCP - General Internal Medicine 07/27/19 Vinny Trujillo MD [address] [place] [address] PCP - General Internal Medicine 04/22/21 10/11/21 Emile Clinton MD [address] [place] [address] PCP - General Internal Medicine 10/12/21 10/15/21 Freda Knapp MD [address] [place] [address] PCP - General Internal Medicine 10/16/21 03/18/22 Vinny Trujillo MD [address] [place] [address] PCP - General Internal Medicine 03/19/22 Siemon Fowler MD [address] [place] [address] [address] [place] [address] Pre K Lead Teacher Cardiovascular Disease 04/28/21 Livia Hines NP [address] [place] [address] [address] [place] [address] Nurse Practitioner Cardiology 07/02/21 Gurmeet Agosto MD, PHD [address] [place] [address] Surgeon Neurosurgery 11/12/21 Mekhi Maddox PA-C 175 [facility] [address] [place] [address] Specialist Neurosurgery 11/12/21 documented as of this encounter
--- OUTSIDE RECORDS SUMMARY | 2024-08-13 15:38 | XMS_ITS | Encounter Summary ---
Author Organization [facility] Address [address] [place] [address] Care Team Providers Care Pre Sales Architect Name Role Phone Vinny Trujillo MD Primary Care Provider [phone] Simeon Fowler MD Unavailable [phone] Livia Hines NP Unavailable [phone] Emile Clinton MD Primary Care Provider [phone] Freda Knapp MD Primary Care Provider U Gurmeet Medina MD, PHD Unavailable Oneydava Mekhi Sotelo PA-C Unavailable [phone] Vinny Trujillo MD Primary Care Provider [phone] Encounter Details Date Type Department Care Team Description 09/25/2021 Hospital Medical Records [address] [place] [address] Abstract, Provider Social History Tobacco Use Types [...] on filedocumented in this encounter Care Teams Pre Sales Architect Relationship Specialty Start Date End Date Vinny Trujillo MD [facility] [place] [address] PCP - General Internal Medicine 04/22/21 10/11/21 Emile Clinton MD [address] [place] [address] PCP - General Internal Medicine 10/12/21 10/15/21 Freda Knapp MD [address] [place] [address] PCP - General Internal Medicine 10/16/21 03/18/22 Vinny Trujillo MD [address] [place] [address] PCP - General Internal Medicine 03/19/22 Simeon Fowler MD [address] [place] [address] [address] [place] [address] Cable Television Installer Cardiovascular Disease 04/28/21 Livia Hines NP [address] [place] [address] [address] [place] [address] Nurse Practitioner Cardiology 07/02/21 Gurmeet Agosto MD, PHD [address] [place] [address] Surgeon Neurosurgery 11/12/21 Mekhi Maddox PA-C 175 [facility] [address] [place] [address] Specialist Neurosurgery 11/12/21 documented as of this encounter
--- OUTSIDE RECORDS SUMMARY | 2024-08-13 15:38 | XMS_ITS | Encounter Summary ---
Author Organization [facility] Address [address] [place] [address] Care Team Providers Care Housekeeping Aid Name Role Phone Vinny Trujillo MD Primary Care Provider [phone] Simeon Fowler MD Unavailable [phone] Livia Hines NP Unavailable [phone] Emile Clinton MD Primary Care Provider [phone] Freda Knapp MD Primary Care Provider U Gurmeet Medina MD, PHD Unavailable Oneydava Mekhi Sotelo PA-C Unavailable [phone] Vinny Trujillo MD Primary Care Provider [phone] Encounter Details Date Type Department Care Team Description 09/30/2021 Hospital Medical Records [address] [place] [address] [facility] Social History Tobacco Use Types Packs/Day [...] on filedocumented in this encounter Care Teams Housekeeping Aid Relationship Specialty Start Date End Date Vinny Trujillo MD [address] [place] [address] PCP - General Internal Medicine 04/22/21 10/11/21 Emile Clinton MD [address] [place] [address] PCP - General Internal Medicine 10/12/21 10/15/21 Freda Knapp MD [address] [place] [address] PCP - General Internal Medicine 10/16/21 03/18/22 Vinny Trujillo MD [address] [place] [address] PCP - General Internal Medicine 03/19/22 Simeon Fowler MD [address] [place] [address] [address] [place] [address] Ornamental Iron Worker Cardiovascular Disease 04/28/21 Livia Hines NP [address] [place] [address] [address] [place] [address] Nurse Practitioner Cardiology 07/02/21 Gurmeet Agosto MD, PHD [address] [place] [address] Surgeon Neurosurgery 11/12/21 Mekhi Maddox PA-C 175 [facility] [address] [place] [address] Specialist Neurosurgery 11/12/21 documented as of this encounter
--- OUTSIDE RECORDS SUMMARY | 2024-08-13 15:38 | XMS_ITS | Encounter Summary ---
Author Organization [facility] Address [address] [place] [address] Care Team Providers Care Buttonhole Tacker Name Role Phone Simeon Fowler MD Unavailable [phone] Livia Hines NP Unavailable [phone] Gurmeet Agosto MD, PHD Unavailable Unava ilMekhi Souza PA-C Unavailable [phone] Vinny Trujillo MD Primary Care Provider [phone] Encounter Details Date Type Department Care Team Description 05/12/2023 Orders Only Medical Records [address] [place] [address] Vinny Trujillo MD [address] [place] [address] Social History Tobacco Use Types Packs/Day Years [...] Date/Time Associated Diagnosis Comments OUTSIDE MAMMO Routine 05/12/2023 documented in this encounter Results * OUTSIDE MAMMO (05/12/2023) Vinny Trujillo MD RADIOLOGY documented in this encounter Visit Diagnoses Not on filedocumented in this encounter Care Teams Buttonhole Tacker Relationship Specialty Start Date End Date Vinny Trujillo MD [address] [place] [address] PCP - General Internal Medicine 03/19/22 Simeon Fowler MD [address] [place] [address] [place] [address] Case Repairer Cardiovascular Disease 04/28/21 Livia Hines NP [address] [place] [address] [address] [place] [address] Nurse Practitioner Cardiology 07/02/21 Gurmeet Agosto MD, PHD [address] [place] [address] [address] [place] [address] Surgeon Neurosurgery 11/12/21 Mekhi Maddox PA-C 175 [facility] [address] [place] [address] Specialist Neurosurgery 11/12/21 documented as of this encounter
--- OUTSIDE RECORDS SUMMARY | 2024-08-13 15:38 | XMS_ITS | Encounter Summary ---
Author Organization [facility] Address [address] [place] [address] Care Team Providers Care Family Development Specialist Name Role Phone Simeon Fowler MD Unavailable [phone] Livia Hines NP Unavailable [phone] Gurmeet Agosto MD, PHD Unavailable Unava ilMekhi Souza PA-C Unavailable [phone] Vinny Trujillo MD Primary Care Provider [phone] Reason for Visit * Reason Onset Date Comments Prior Authorization 10/28/2023 Encounter Details Date Type Department Care Team Description 10/28/2023 Telephone Adult Medicine [address] [address] Vinny Trujillo MD [address] [place] [address] Prior Authorization Social History Tobacco Use Types Packs/Day Years [...] encounter Miscellaneous Notes * Telephone Encounter - La Harper M.A. - 11/04/2023 4:40 PM EDT Prior authorizaiton for the jose ry was approved Approved from 11/01/23 until 05/02/24 Approval faxed to Prasanth Guajardo Ma at [phone] * Telephone Encounter - La Harper M.A. - 10/31/2023 2:44 PM EDT Prior authorization for the wegovy was completed today on cmm Dx codes E66.01 Class 3 severe obesity due to excess calories with serious comorbidity and body mass index (BMI) of 40.0 to 44.9 in adult E11.9 Type 2 diabetes mellitus wihtout complication, without [facility] current use of insulin * Telephone Encounter - Karma Smith - 10/28/2023 2:34 PM EDT Prior Authorization for Medication-do not complete and send this encounter unless you have the fax from the pharmacy. Is this a Cover My Meds request: Yes -- Villanueva Code [id number] Name of Medication Semaglutide-Weight Management (Wegovy) 0.25 MG/0.5ML Solution Auto-injector Dose of Medication 0.25 MG/0.5ML What is the RX # from the faxed refill? N/a How does patient take this med? Route: Inject 0.25 mg into the skin once a week. - Subcutaneous What Pharmacy did the fax come from: [facility] fax #: [phone] [employer] Party Information from fax: What Prescription Plan does the patient have? N/a BIN/PCN if applicable: n/a Cardholder ID:[id number] Person Code: n/a Relationship Code: n/a Help desk phone: [phone] documented in this encounter Plan of Treatment Not on file documented as of this encounter Visit Diagnoses Not on filedocumented in this encounter Care Teams Family Development Specialist Relationship Specialty Start Date End Date Vinny Trujillo MD [address] [place] [address] PCP - General Internal Medicine 03/19/22 Simeon Fowler MD [address] [place] [address] [address] [place] [address] Respiratory Tech Cardiovascular Disease 04/28/21 Livia Hines NP [address] [place] [address] [address] [place] [address] Nurse Practitioner Cardiology 07/02/21 Gurmeet Agosto MD, PHD [address] [place] [address] [address] [place] [address] Surgeon Neurosurgery 11/12/21 Mekhi Maddox PA-C [address] [place] [address] [address] [place] [address] Specialist Neurosurgery 11/12/21 documented as of this encounter
--- OUTSIDE RECORDS SUMMARY | 2024-08-13 15:38 | XMS_ITS | Encounter Summary ---
Author Organization [facility] Address [address] [place] [address] Care Team Providers Care Information Security Consultant Name Role Phone Simeon Fowler MD Unavailable [phone] Livia Hines NP Unavailable [phone] Freda Knapp MD Primary Care Provider U Gurmeet Medina MD, PHD Unavailable Oneydava Mekhi Sotelo PA-C Unavailable [phone] Vinny Trujillo MD Primary Care Provider [phone] Reason for Visit * Reason Comments E-prescribe Rx Request Encounter Details Date Type Department Care Team Description 12/24/2021 Refill Gastroenterology [facility] 175 [facility] [address] [place] [address] Sin Prasad MD E-prescribe Rx [...] on filedocumented in this encounter Care Teams Information Security Consultant Relationship Specialty Start Date End Date Freda Knapp MD [address] [place] [address] [address] [place] [address] PCP - General Internal Medicine 10/16/21 03/18/22 Vinny Trujillo MD [address] [place] [address] PCP - General Internal Medicine 03/19/22 Simeon Fowler MD [address] [place] [address] [address] [place] [address] Employee Communications Manager Cardiovascular Disease 04/28/21 Livia Hines NP [address] [place] [address] [address] [place] [address] Nurse Practitioner Cardiology 07/02/21 Gurmeet Agosto MD, PHD [address] [place] [address] [address] [place] [address] Surgeon Neurosurgery 11/12/21 Mekhi Maddox PA-C [address] [place] [address] [address] [place] [address] Specialist Neurosurgery 11/12/21 documented as of this encounter
--- OUTSIDE RECORDS SUMMARY | 2024-08-13 15:38 | XMS_ITS | Encounter Summary ---
Author Organization [facility] Address [address] [place] [address] Care Team Providers Care Underground Truck Operator Name Role Phone Vinny Trujillo MD Primary Care Provider [phone] Simeon Fowler MD Unavailable [phone] Livia Hines NP Unavailable [phone] Emile Clinton MD Primary Care Provider [phone] Freda Knapp MD Primary Care Provider U Gurmeet Medina MD, PHD Unavailable Oneydava Mekhi Sotelo PA-C Unavailable [phone] Vinny Trujillo MD Primary Care Provider [phone] Encounter Details Date Type Department Care Team Description 09/14/2021 Hospital Medical Records [address] [place] [address] [facility] Social History Tobacco Use Types Packs/Day [...] on filedocumented in this encounter Care Teams Underground Truck Operator Relationship Specialty Start Date End Date Vinny Trujillo MD [address] [place] [address] PCP - General Internal Medicine 04/22/21 10/11/21 Emile Clinton MD [address] [place] [address] PCP - General Internal Medicine 10/12/21 10/15/21 Freda Knapp MD [address] [place] [address] PCP - General Internal Medicine 10/16/21 03/18/22 Vinny Trujillo MD [address] [place] [address] PCP - General Internal Medicine 03/19/22 Simeon Fowler MD [address] [place] [address] [place] [address] Metal Dealer Cardiovascular Disease 04/28/21 Livia Hines NP [address] [place] [address] [place] [address] Nurse Practitioner Cardiology 07/02/21 Gurmeet Agosto MD, PHD [address] [place] [address] Surgeon Neurosurgery 11/12/21 Mekhi Maddox PA-C [address] [place] [address] [address] [place] [address] Specialist Neurosurgery 11/12/21 documented as of this encounter
--- OUTSIDE RECORDS SUMMARY | 2024-08-13 15:38 | XMS_ITS | Encounter Summary ---
Author Organization [facility] Address [address] [place] [address] Care Team Providers Care Bruise Trimmer Name Role Phone Ambreen Hazel MD Primary Care Provider Oneyda Vinny Arguello MD Primary Care Provider [phone] Simeon Fowler MD Unavailable [phone] Livia Hines NP Unavailable [phone] Emile Clinton MD Primary Care Provider [phone] Freda Knapp MD Primary Care Provider U Gurmeet Medina MD, PHD Unavailable Unava Mekhi Sotelo PA-C Unavailable [phone] Vinny Trujillo MD Primary Care Provider [phone] Reason for Visit * Reason Comments E-prescribe Rx Request Encounter Details Date Type Department Care Team Description 12/19/2019 Refill Gastroenterology - [place] 175 [facility] [address] [place] [phone] Sin Prasad MD E-prescribe Rx Request Social [...] encounter Miscellaneous Notes * Telephone Encounter - Lyn Garcia M.A. - 12/19/2019 9:35 AM EDT Jeffrey 08/21/2019 documented in this encounter Plan of Treatment Not on file documented as of this encounter Visit Diagnoses Not on filedocumented in this encounter Care Teams Bruise Trimmer Relationship Specialty Start Date End Date Ambreen Hazel MD PCP - General Internal Medicine 07/27/19 1 Vinny Trujillo MD [address] [place] [address] PCP - General Internal Medicine 04/22/21 10/11/21 Emile Clinton MD [address] [place] [address] PCP - General Internal Medicine 10/12/21 10/15/21 Freda Knapp MD [address] [place] [address] PCP - General Internal Medicine 10/16/21 03/18/22 Vinny Trujillo MD [address] [place] [address] PCP - General Internal Medicine 03/19/22 Simeon Fowler MD [address] [place] [address] [place] [address] Utility Agent Cardiovascular Disease 04/28/21 Livia Hines NP [address] [place] [address] [place] [address] Nurse Practitioner Cardiology 07/02/21 Gurmeet Agosto MD, PHD [address] [place] [address] Surgeon Neurosurgery 11/12/21 Mekhi Maddox PA-C 175 [facility] [address] [place] [address] Specialist Neurosurgery 11/12/21 documented as of this encounter
--- OUTSIDE RECORDS SUMMARY | 2024-08-13 15:38 | XMS_ITS | Encounter Summary ---
Author Organization [facility] Address [address] [place] [address] Care Team Providers Care Pad Assembler Name Role Phone Simeon Fowler MD Unavailable [phone] Livia Hines NP Unavailable [phone] Freda Knapp MD Primary Care Provider U Gurmeet Medina MD, PHD Unavailable Oneydava Mekhi Sotelo PA-C Unavailable [phone] Vinny Trujillo MD Primary Care Provider [phone] Reason for Visit * Reason Onset Date Comments APPOINTMENT 10/27/2021 Encounter Details Date Type Department Care Team Description 10/27/2021 Telephone Cardio PVC POC [address] [facility] [address] [place] [address] Livia Hines NP [address] [place] [address] Dr [address] [place] [address] APPOINTMENT Social History Tobacco Use Types Packs/Day Years [...] suspected to have Coronavirus/COVID-19? No / Unsure 10/28/2021 9:59 AM EDT documented as of this encounter Miscellaneous Notes * Telephone Encounter - Marlin Hughes - 10/27/2021 8:43 AM EDT LMOM to conf. documented in this encounter Plan of Treatment Not on file documented as of this encounter Visit Diagnoses Not on filedocumented in this encounter Care Teams Pad Assembler Relationship Specialty Start Date End Date Freda Knapp MD [address] [place] [address] [place] [address] PCP - General Internal Medicine 10/16/21 03/18/22 Vinny Trujillo MD [address] [place] [address] PCP - General Internal Medicine 03/19/22 Simeon Fowler MD [address] [place] [address] [place] [address] Corn Picker Cardiovascular Disease 04/28/21 Livia Hines NP [address] [place] [address] [place] [address] Nurse Practitioner Cardiology 07/02/21 Gurmeet Agosto MD, PHD [address] [place] [address] [place] [address] Surgeon Neurosurgery 11/12/21 Mekhi Maddox PA-C 175 [facility] [address] [place] [address] Specialist Neurosurgery 11/12/21 documented as of this encounter
--- OUTSIDE RECORDS SUMMARY | 2024-08-13 15:38 | XMS_ITS | Encounter Summary ---
Author Organization [facility] Address [address] [place] [address] Care Team Providers Care Roll Up Helper Name Role Phone Ambreen Hazel MD Primary Care Provider Oneyda vailable Alberto, Pcp Primary Care Provider Unavailabl e Ambreen Hazel MD Primary Care Provider Oneyda vailable Vinny Trujillo MD Primary Care Provider [phone] Simeon Fowler MD Unavailable [phone] Livia Hines NP Unavailable [phone] Emile Clinton MD Primary Care Provider [phone] Freda Knapp MD Primary Care Provider U Gurmeet Medina MD, PHD Unavailable Unava ilMekhi Souza PA-C Unavailable [phone] Vinny Trujillo MD Primary Care Provider [phone] Encounter Details Date Type Department Care Team Description 08/28/2018 [facility] Medical Records [address] [place] [address] Abstract, Provider Social History Tobacco Use Types [...] on filedocumented in this encounter Care Teams Roll Up Helper Relationship Specialty Start Date End Date Ambreen Hazel MD PCP - General Internal Medicine 01/05/16 [facility], Pcp PCP - General Internal Medicine 07/16/19 07/26/19 Ambreen Hazel MD PCP - General Internal Medicine 07/27/19 Vinny Trujillo MD [address] [place] [address] PCP - General Internal Medicine 04/22/21 10/11/21 Emile Clinton MD [address] [place] [address] PCP - General Internal Medicine 10/12/21 10/15/21 Freda Knapp MD [address] [place] [address] PCP - General Internal Medicine 10/16/21 03/18/22 Vinny Trujillo MD [address] [place] [address] PCP - General Internal Medicine 03/19/22 Simeon Fowler MD [address] [place] [address] [address] [place] [address] Electrocardiogram Technician Cardiovascular Disease 04/28/21 Livia Hines NP [address] [place] [address] [address] [place] [address] Nurse Practitioner Cardiology 07/02/21 Gurmeet Agosto MD, PHD [address] [place] [address] Surgeon Neurosurgery 11/12/21 Mekhi Maddox PA-C 175 [facility] [address] [place] [address] Specialist Neurosurgery 11/12/21 documented as of this encounter
--- OUTSIDE RECORDS SUMMARY | 2024-08-13 15:38 | XMS_ITS | Encounter Summary ---
Author Organization [facility] Address [address] [place] [address] Care Team Providers Care Turbogenerator Operator Name Role Phone Vinny Trujillo MD Primary Care Provider [phone] Simeon Fowler MD Unavailable [phone] Livia Hines NP Unavailable [phone] Emile Clinton MD Primary Care Provider [phone] Freda Knapp MD Primary Care Provider U Gurmeet Medina MD, PHD Unavailable Oneydava Mekhi Sotelo PA-C Unavailable [phone] Vinny Trujillo MD Primary Care Provider [phone] Encounter Details Date Type Department Care Team Description 10/06/2021 [facility] Medical Records [address] [place] [address] Abstract, Provider Social History Tobacco Use Types [...] on filedocumented in this encounter Care Teams Turbogenerator Operator Relationship Specialty Start Date End Date Vinny Trujillo MD [address] [place] [address] PCP - General Internal Medicine 04/22/21 10/11/21 Emile Clinton MD [address] [place] [address] PCP - General Internal Medicine 10/12/21 10/15/21 Freda Knapp MD [address] [place] [address] PCP - General Internal Medicine 10/16/21 03/18/22 Vinny Trujillo MD [address] [place] [address] PCP - General Internal Medicine 03/19/22 Simeon Fowler MD [address] [place] [address] [address] [place] [address] Mold Technician Cardiovascular Disease 04/28/21 Livia Hines NP [address] [place] [address] [address] [place] [address] Nurse Practitioner Cardiology 07/02/21 Gurmeet Agosto MD, PHD [address] [place] [address] Surgeon Neurosurgery 11/12/21 Mekhi Maddox PA-C [address] [place] [address] [address] [place] [address] Specialist Neurosurgery 11/12/21 documented as of this encounter
--- OUTSIDE RECORDS SUMMARY | 2024-08-13 15:38 | XMS_ITS | Encounter Summary ---
Author Organization [facility] Address [address] [place] [address] Care Team Providers Care Knotter Name Role Phone Simeon Fowler MD Unavailable [phone] Livia Hines NP Unavailable [phone] Emile Clinton MD Primary Care Provider [phone] Freda Knapp MD Primary Care Provider U Gurmeet Medina MD, PHD Unavailable Unava Mekhi Sotelo PA-C Unavailable [phone] Vinny Trujillo MD Primary Care Provider [phone] Reason for Visit * Reason Onset Date Comments Unable To Reach 10/13/2021 Encounter Details Date Type Department Care Team Description 10/13/2021 Telephone Pulmonology - [place] 175 [facility] [address] [place] [phone] Sharon Rushing, [facility] [address] [place] [address] Unable To Reach Social History Tobacco Use Types Packs/Day Years [...] encounter Miscellaneous Notes * Telephone Encounter - Frida Tomas - 10/13/2021 2:52 PM EDT [facility] called stating they have been trying to reach patient for a few weeks. Unable to speak to her as her mailbox is full. They have her machine. If patient is to call please have her call them at [phone]. documented in this encounter Plan of Treatment Not on file documented as of this encounter Visit Diagnoses Not on filedocumented in this encounter Care Teams Knotter Relationship Specialty Start Date End Date Emile Clinton MD [address] [place] [address] PCP - General Internal Medicine 10/12/21 10/15/21 Freda Knapp MD [address] [place] [address] PCP - General Internal Medicine 10/16/21 03/18/22 Vinny Trujillo MD [address] [place] [address] PCP - General Internal Medicine 03/19/22 Simeon Fowler MD [address] [place] [address] [place] [address] Cobol Engineer Cardiovascular Disease 04/28/21 Livia Hines NP [address] [place] [address] [address] [place] [address] Nurse Practitioner Cardiology 07/02/21 Gurmeet Agosto MD, PHD [address] [place] [address] Surgeon Neurosurgery 11/12/21 Mekhi Maddox PA-C 175 [facility] [address] [place] [address] Specialist Neurosurgery 11/12/21 documented as of this encounter
--- OUTSIDE RECORDS SUMMARY | 2024-08-13 15:38 | XMS_ITS | Encounter Summary ---
Author Organization [facility] Address [address] [place] [address] Care Team Providers Care Industrial Specialist Name Role Phone Simeon Fowler MD Unavailable [phone] Livia Hines NP Unavailable [phone] Gurmeet Agosto MD, PHD Unavailable Unava Mekhi Sotelo PA-C Unavailable [phone] Vinny Trujillo MD Primary Care Provider [phone] Encounter Details Date Type Department Care Team Description 08/25/2022 [facility] Medical Records [address] [place] [address] [facility] Social History Tobacco Use Types [...] suspected to have Coronavirus/COVID-19? No / Unsure 08/20/2022 10:59 AM EST documented as of this encounter Plan of Treatment Not on file documented as of this encounter Visit Diagnoses Not on filedocumented in this encounter Care Teams Industrial Specialist Relationship Specialty Start Date End Date Vinny Trujillo MD [address] [place] [address] PCP - General Internal Medicine 03/19/22 Simeon Fowler MD [address] [place] [address] [address] [place] [address] Guardian Family Member Cardiovascular Disease 04/28/21 Livia Hines NP [address] [place] [address] [address] [place] [address] Nurse Practitioner Cardiology 07/02/21 Gurmeet Agosto MD, PHD [address] [place] [address] [address] [place] [address] Surgeon Neurosurgery 11/12/21 Mekhi Maddox PA-C [address] [place] [address] [address] [place] [address] Specialist Neurosurgery 11/12/21 documented as of this encounter
--- OUTSIDE RECORDS SUMMARY | 2024-08-13 15:39 | XMS_ITS | Encounter Summary ---
Author Organization [facility] Address [address] [place] [address] Care Team Providers Care Acid Retort Operator Name Role Phone Vinny Trujillo MD Primary Care Provider [phone] Encounter Details Date Type Department Care Team ([facility] st Contact Info) Description 07/23/2024 Telephone Gastroenterology - [place] 175 [facility] 175 [facility] [address] [place] [phone] Nkechi Steen, JOHN 175 [facility] [address] [place] [address] Social History Tobacco Use Types Packs/Day Years Used Date Smoking Tobacco: Never Smokeless Tobacco: Never Alcohol Use Standard Drinks/Week Comments No 0 (1 standard drink = 0.6 oz pur e alcohol) Sex and Gender Information Value Date Recorded Sex Assigned at Female 06/12/2024 4:25 PM EST Gender Identity Female 06/12/2024 4:25 PM EST Sexual Orientation Straight 06/12/2024 4: 25 PM EST Job Start Date Occupation Industry Not on file Not on file Not on file documented as of this encounter Functional Status Functional Status Response Date of Assess ment Are you deaf or do you have serious difficulty h earing? No 06/12/2024 Are you blind or do you have serious difficulty seeing, even when wearing glasses? No 06/12/2024 Do you have serious difficul ty walking or climbing stairs? No 06/12/2024 Do you have serious difficulty dressing or bathi ng? No 06/12/2024 Because of a physical, menta l, or emotional condition, do you have serious difficulty doing errands alone such as visiting the doctor? No 06/12/2024 Cognitive Status Response Date of Assessm ent Because of a physical, menta l, or emotional condition, do you have serious difficulty concentrating, remembering, or making decisions? (5 years old or older) No 06/12/2024 documented as of this encounter Progress Notes * Emily Ortiz - 07/24/2024 9:01 AM EST scheduled * Emily Ortiz - 07/24/2024 8:46 AM EST 1st attempt to schedule an appointment patient left message to call back COLON-MUSLU * Emily Ortiz - 07/23/2024 3:23 PM EST ----- Message from Farheen Steen NP sent at 07/23/2024 3:20 PM EST ----- Regarding: Colonoscopy Please schedule colonoscopy related to family history of colon cancer next available. Thank you. documented in this encounter Plan of Treatment Upcoming Encounters Date Type Department Care Team (Late st Contact Info) Description 08/16/2024 8:40 AM EST Office Visit [facility] Associates - [facility] [address] [place] [address] Annabel Gama NP [address] [place] [address] [place] [address] 08/23/2024 11:30 AM EST Office Visit Obstetrics and Gynecology - [address] [phone] Emily Amos CNM [address] [place] [address] 08/30/2024 12:30 PM EST Nutrition Bariatric Surgery - [place] 175 [facility] [address] [place] [phone] Madonna Reno, RD 175 [facility] 120 [place] [phone] 11/05/2024 12:00 PM EDT Appointment [facility] Endoscopy [address] [place] [phone] Piter Justin, DO 175 [facility] 200 [place] [address] 11/15/2024 10:10 AM EDT Office Visit [facility] Cardiology Associates [facility] [address] [facility] [address] [place] [address] Livia Hines NP [address] [facility] [address] [place] [address] 01/03/2025 1:00 PM EDT Office Visit [facility] - [place] [address] [place] [address] Jose Marcano PA [address] [place] [address] documented as of this encounter Visit Diagnoses Not on filedocumented in this encounter Care Teams Acid Retort Operator Relationship Specialty Start Date End Date Vinny Trujillo MD [address] [place] [address] PCP - General Internal Medicine 06/08/24 documented as of this encounter
--- OUTSIDE RECORDS SUMMARY | 2024-08-13 15:39 | XMS_ITS | Encounter Summary ---
Author Organization [facility] Address [address] [place] [address] Care Team Providers Care Musical Instrument Maker Name Role Phone Vinny Trujillo MD Primary Care Provider [phone] Reason for Visit * Reason Onset Date Comments clearance letter 07/12/2024 Encounter Details Date Type Department Care Team (Late st Contact Info) Description 07/12/2024 Telephone [facility] Cardiology [address] [place] [phone] Simeon Fowler MD [address] [place] [address] [address] [place] [address] clearance letter Social History Tobacco Use Types Packs/Day Years [...] as of this encounter Progress Notes * Maday Hawkins MA - 08/10/2024 8:32 AM EST Images from the original note were not included. * Livia Hines NP - 08/10/2024 7:24 AM EST Preop risk assessment will need to be done in the office. Thank you. * Gill Aguiar - 07/12/2024 2:56 PM EST Patient calling, she's having a gastric by pass done within the next 6 months. They are requesting a clearance note/letter for the patient stating she's safe and cleared to go through with this procedure. Letter can be uploaded to [employer]. documented in this encounter Plan of Treatment Upcoming Encounters Date Type Department Care Team (Late st Contact Info) Description 08/16/2024 8:40 AM EST Office Visit [facility] - Medical [facility] [place] [address] Annabel Gama NP [address] [place] [address] [place] [address] 08/23/2024 11:30 AM EST Office Visit Obstetrics and Gynecology - [facility] 305 [facility] [place], [place] [phone] Emily Amos CNM [address] [place] [address] 08/30/2024 12:30 PM EST Nutrition Bariatric Surgery - [place] 175 [facility] 120 [place] [phone] Madonna Reno, RD 175 [facility] 120 [place] [phone] 11/05/2024 12:00 PM EDT Appointment [facility] Endoscopy [address] [place] [phone] Piter Justin DO 175 [facility] 200 [place] [address] 11/15/2024 10:10 AM EDT Office Visit [facility] Cardiology Associates - [facility] [address] [place] [address] Livia Hines NP [address] [place] [address] Dr [facility] [address] [place] [address] 01/03/2025 1:00 PM EDT Office Visit Mangle Operator Garments - [facility] [address] [place] [address] Jose Marcano PA [address] [place] [address] documented as of this encounter Visit Diagnoses Not on filedocumented in this encounter Care Teams Musical Instrument Maker Relationship Specialty Start Date End Date Vinny Trujillo MD [address] [place] [address] PCP - General Internal Medicine 06/08/24 documented as of this encounter
--- OUTSIDE RECORDS SUMMARY | 2024-08-13 15:39 | XMS_ITS | Clinical Summary ---
Author Organization [facility] Address [address] [place] [address] Care Team Providers Care Pulmonologist Intensivist Name Role Phone Simeon Fowler MD Unavailable [phone] Livia Hines NP Unavailable [phone] Gurmeet Agosto MD, PHD Unavailable Unava Mekhi Sotelo PA-C Unavailable [phone] Vinny Trujillo MD Primary Care Provider [phone] Allergies Active Allergy Reactions Severity Noted Date Comments Cats 06/18/2021 Dogs 01/31/2024 Grass Pollen(K-O-R-T-Swt Kyler) 06/18 Latex Rash/Dermatitis 08/23/2014 Pollen 06/18/2021 Seasonal 06/18/2021 Medications Medication Sig Dispensed Refills Start Date End Date Status topiramate (TOPAMAX) 200 MG tablet Take 200 mg by mouth daily. 0 Active Lurasidone HCl 120 MG Tab Take 1 Tab by mouth every morning. 0 Active Capsaicin 0.025 % Gel Apply 1 Applicator topically daily. 1 Bottle 0 07/14/2018 Active azelastine (ASTELIN) 0.1 % nasal spray 1-2 Sprays by Each Nare route 2 times daily. Use in each nostril as directed 120 Welch 5 02/19/2021 Active olopatadine (Patanol) 0.1 % ophthalmic solution Place 1 Drop into both eyes 2 times daily as needed for Allergies. 5 mL 5 02/19/2021 Active fexofenadine (Daina Allergy) 180 MG tablet Take 1 tablet by mouth daily. 30 tablet 5 02/19/2021 Active clonazepam (KLONOPIN) 1 MG tablet Take 1 Tablet by mouth at bedtime. 0 Active levetiracetam (KEPPRA) 750 MG tablet Take 750 mg by mouth 2 times daily. 0 Active Deutetrabenazine 6 MG Tab Take 1 Tablet by mouth daily. 0 Active amitriptyline (ELAVIL) 50 MG tablet Take 50 mg by mouth at bedtime. 0 Active albuterol (PROVENTIL) (2.5 MG/3ML) 0.083% nebulizer solutionIndication s:Moderate persistent asthma without complication Take 1 Vial by nebulization every 6 hours as needed for Wheezing or Shortness of Breath for up to 180 days. 90 mL 1 07/26/2023 Active Dapagliflozin Propanediol (Farxiga) 10 MG TabIndications:HFr EF (heart failure with reduced ejection fraction) ([facility]),Left ventricular apical thrombus Take 1 Tablet by mouth daily. 90 Tablet 3 08/17/2023 Active spironolactone (ALDACTONE) 25 MG tabletIndications: HFrEF (heart failure with reduced ejection fraction) ([facility]),Left ventricular apical thrombus Take 1 Tablet by mouth daily. 90 Tablet 3 08/17/2023 Active glucose monitoring kit (FREESTYLE) monitoring kit FOR CHECKING SUGARS FASTING IN AM 1 Kit 0 09/15/2023 09/09/2024 Active Glucose Blood (FREESTYLE LITE) Strip 1 Strip by In Vitro route 4 times daily. 200 Strip 2 09/15/2023 Active FreeStyle Lancets Misc FOR CHECKING SUGARS ONCE DAILY WHILE FASTING 200 Each 1 09/15/2023 Active Misc. Devices (Pulse Oximeter For Finger) MiscIndications:Hi story of CVA (cerebrovascular accident) without residual deficits,Congestiv e heart failure, unspecified HF chronicity, unspecified heart failure type ([facility]) 1 Each by Does not apply route as needed for Other. 1 Each 0 10/04/2023 Active Diclofenac Sodium 1 % Gel Apply 4 g topically 4 times daily as needed (knee pain). 200 g 0 12/14/2023 Active Sennosides (Senna) 8.6 MG Tab TAKE (2) TABLETS BY MOUTH TWICE DAILY. 112 Tablet 5 02/14/2024 Active pantoprazole (PROTONIX) 20 MG tablet TAKE 1 TABLET BY MOUTH DAILY 28 Tablet 5 02/14/2024 Active D3-1000 25 MCG (1000 UT) Cap TAKE (1) CAPSULE BY MOUTH EVERY DAY 28 Capsule 5 02/14/2024 Active carvedilol (COREG) 12.5 MG tabletIndications: HFrEF (heart failure with reduced ejection fraction) ([facility]),Left ventricular apical thrombus Take 1 Tablet by mouth 2 times daily (with meals). 180 Tablet 3 03/20/2024 Active Sacubitril-Valsart an (Entresto) 24-26 MG TabIndications:HFr EF (heart failure with reduced ejection fraction) ([facility]),Left ventricular apical thrombus Take 1 Tablet by mouth 2 times daily. 180 Tablet 03/20/2024 Active atorvastatin (LIPITOR) 80 MG tabletIndications: HFrEF (heart failure with reduced ejection fraction) ([facility]),Left ventricular apical thrombus Take 1 Tablet by mouth daily. 90 Tablet 3 03/20/2024 Active torsemide (DEMADEX) 20 MG tabletIndications: HFrEF (heart failure with reduced ejection fraction) ([facility]) Take 1.5 Tablets by mouth daily (with breakfast) AND 1 Tablet Daily before dinner. Do all this for 360 days. 270 Tablet 3 03/20/2024 03/15/2025 Active potassium chloride 10 MEQ tabletIndications: HFrEF (heart failure with reduced ejection fraction) ([facility]) Take 1 Tablet by mouth daily. 90 Tablet 03/20/2024 Active gabapentin (NEURONTIN) 100 MG capsuleIndications :Schizophrenia, unspecified type ([facility]),Bipolar 1 disorder ([facility]) Take 1 Capsule by mouth at bedtime. 28 Capsule 5 03/21/2024 Active acetaminophen (TYLENOL) 650 MG CR tablet Take 1 Tablet by mouth every 8 hours as needed for Pain. 60 Tablet 0 04/05/2024 Active montelukast (Singulair) 10 MG tabletIndications: Moderate persistent asthma without complication Take 1 Tablet by mouth at bedtime for 180 days. 90 Tablet 1 04/05/2024 Active Fluticasone-Salmet dunia (Wixela Inhub) 250-50 MCG/ACT AEROSOL POWDER,BREATH ACTIVATEDIndicatio ns:BERNA (obstructive sleep apnea) Inhale 1 Puff into the lungs 2 times daily for 90 days. 3 Each 3 04/05/2024 Active quetiapine (SEROQUEL) 100 MG tablet Take 3 Tablets by mouth at bedtime. 0 04/05/2024 Active Semaglutide, 1 MG/DOSE, (Ozempic, 1 MG/DOSE,) 4 MG/3ML Solution Pen-injector Inject 1 mg as directed every 7 days. 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 The present time her EKG is unchanged there is no indication of an acute coronary syndrome nor do I feel that her symptoms are secondary to obstructive disease especially in light of her negative cardiac catheterization in 2020. I have reassured the patient that her symptoms most likely brought on by stress. At this point I do not see any evidence for a Takotsubo cardiomyopathy though I have scheduled her for an echocardiogram HFrEF (heart failure with reduced ejecti on fraction) 07/02/2021 Last Assessment & Plan: Patient with a diagnosis of HFrEF this had a significant improvement on medical management. Patient be sent for another echocardiogram to make sure that the ejection fraction remains stable. On exam there is no evidence of heart failure Mild intermittent asthma without complic ation 08/22/2020 Hearing loss 04/30/2020 Overview: Will be getting hearing aids 05/2020 Recurrent sinus infections 01/03/2020 Perennial allergic rhinitis 01/03/2020 Seasonal allergies 12/17/2019 Long QT interval 02/21/2019 Overview: Borderline on EKG; multiple medications and prescribers, caution with med adjustments Fibromyalgia 11/02/2018 Overview: Sees [facility], Dr. Dickey Chronic headache 10/24/2018 Overview: Eval with Dr. Rader; started on amitriptyline Retinal hemorrhage of left eye 9 Osteoarthritis of both knees 07/14/2018 GERD with esophagitis 05/22/2018 Chronic constipation 01/16/2016 Overview: Numerous urgent care visits Vitamin D deficiency 09/25/2014 Hypercholesterolemia 09/25/2014 Last Assessment & Plan: Patient's lipids are markedly improved with an LDL cholesterol is down to 116. May consider adding Zetia in the future she is on high-dose atorvastatin Schizophrenia 08/23/2014 Bipolar 1 disorder 08/23/2014 Overview: Dr. Greenfield in psychiatry in [place] Insomnia 08/23/2014 BERNA (obstructive sleep apnea) mild AHI 1 4 04/18/2013 Overview: Sleep medicine services Home sleep test; 06/24/2021; weight 230 pounds; BMI 41. AHI 14, AI 1, AHI 14. 6 obstructive apneas; 97 hypopneas. Average oxygen saturation 93%; oxygen lucila 78%. Obstructive sleep apnea-mild with mostly hypopneas and without nocturnal hypoxemia based on 2020 home sleep test. Last Assessment & Plan: Sleep medicine services Home sleep test; 06/24/2021; weight 230 pounds; BMI 41. AHI 14, AI 1, AHI 14. 6 obstructive apneas; 97 hypopneas. Average oxygen saturation 93%; oxygen lucila 78%. Obstructive sleep apnea-mild with mostly hypopneas and without nocturnal hypoxemia based on 2020 home sleep test. 09/08/2021 BERNA Consult. Symptomatic. HST results reviewed. CPAP ordered from [facility]. FU in 3 months for compliance. Blind left eye Resolved Problems Problem Noted Date Resolved Date Cardiomyopathy 11/24/2021 11/25/2021 Last Assessment & Plan: Patient with a diagnosis of HFrEF this had a significant improvement on medical management. Patient be sent for another echocardiogram to make sure that the ejection fraction remains stable. On exam there is no evidence of heart failure Pyelonephritis of right kidney 11/24/2021 1 08/04/2021 GERD (gastroesophageal reflux disease) 2 06/04/2022 Asthma 11/24/2021 06/04/2022 Depression with anxiety 11/24/2021 06/04/20 Seropositive rheumatoid arthritis 08/25/2018 08/25/2018 Prediabetes 08/02/2018 06/04/2022 Overview: A1c 6.0% 07/2018 History of cervical cancer 02/12 Overview: 1997; History of XRT and laser Encounters Date Type Specialty Care Team Description 05/16/2024 Refill Adult Med Vinny Trujillo MD refill request from Last 3 Months Immunizations Name Administration Dates Next Due COVID-19 (Moderna) PT Reported 12/16/2020,2020 COVID-19 (Pfizer) 01/22/2022 Flu (Generic) 04/18/2013,04/19/2009 Influenza (> 6 Months) 04/05/2024,04/10/2015,12/2014 Influenza Vaccine-preservati ve Free-quadrivalent 4 Years 06/04/2022,05/21/2021,04/30/2020,03/21 Influenza Vaccine-quadrivale nt 4 Years Plus 05/02/2017 PREVNAR 20 04/05/2024 Pneumoccoccal(Adult) Polysac charide PPSV23 05/21/2021 Shingrix (Patient reported) 01/22/2024 Shingrix (Recombinant zoster vaccine) 01/29/2023 Tdap 08/23/2014,11/20/2008 Family History Medical History Relation Name Comments Cancer, Other Daughter 1 some type of c ervical. Had cervix removed. Diabetes Daughter 1 Hypertension Daughter 1 Asthma Daughter 2 juvenile rheumatoid arthritis Daughter 3 liver cancer Father Diabetes Grandparent HTN Stroke Mother CA Colon Sister 1 mets to the valorie g erythema nodosum Sister 2 erythema nodosum Sister 3 CA Breast Negative Hx Relation Name Status Comments Brother 1 Alive Brother 2 Alive Brother 3 Alive Brother 4 Alive Daughter 1 Alive Daughter 2 Alive Daughter 3 Alive Father Grandparent Mother Alive Sister 1 Alive Sister 2 Alive Sister 3 Alive Son 1 Alive Son 2 Alive Son 3 Alive Social History Tobacco Use Types Packs/Day Years Used Date Smoking Tobacco: Never Passive Smoke Exposure: Never Smokeless Tobacco: Never Tobacco Cessation:Counseling Given: Not Answered Alcohol Use Standard Drinks/Week Comments No 0 (1 standard drink = 0.6 oz pur e alcohol) Sex Assigned at Date Recorded Not on file Job Start Date Occupation Industry Not on file Not on file Not on file Last Filed Vital Signs Vital Sign Reading Time Taken Comments Blood Pressure 124/70 03/20/2024 2:09 PM EDT Pulse 94 03/20/2024 2:09 PM EDT Temperature 36.7 ??C (98.1 ??F) 11/09/2023 11:43 AM E DT Respiratory Rate 20 11/09/2023 11:43 AM EDT Oxygen Saturation 96% 03/20/2024 2:09 PM EDT Inhaled Oxygen Concentration - - Weight 104.3 kg (230 lb) 03/20/2024 2:09 PM EDT Height 161.3 cm (5' 3.5 ) 03/20/2024 2:09 PM EDT Body Mass Index 40.1 03/20/2024 2:09 PM EDT Plan of Treatment Health Maintenance Due Date Last Done Comments CERVICAL CANCER SCREENING 06/05/20232019, 05/19/2017, 01/31/2014 COLON CANCER SCREENING 06/26/2023 06/26/2018, 2014 DIABETES: ANNUAL EYE EXAM 01/06/20242022, 07/29/2021 (External Completion of test per patient (Patient reports normal results)) Covid-19 Vaccine (4 - 2022-2 4 season) 2024 01/22/2022, 12/16/2020, 11/17/2020 DIABETES: BLOOD SUGAR CONTRO L TEST (HGBA1C) 07/05/2024 04/05/2024, 10/26/2023, 10/26/2023, Additional history exists BMI CHECK/ADVISE 07/18/2024 04/05/2024, , 10/26/2023, Additional history exists DTAP/TDAP/TD (3 - Td or Tdap) 08/23/2024 08/23/2014, 11/20/2008 DIABETES: ANNUAL URINE PROTE IN TEST (MICROALBUMIN) 09/14/2024 09/15/2023, 08/13/2022 DEPRESSION SCREEN 10/25/2024 10/26/2023 (Co mpleted), 10/13/2022 (Completed), 06/30/2021, Additional history exists DIABETES/HEART DISEASE: OSEAS AL CHOLESTEROL (LDL) 10/25/2024 10/26/2023, 08/13/2022, 07/25/2020, Additional history exists DIABETES: ANNUAL FOOT EXAM 10/25/202410/25 (Completed), 06/04/2022 BASELINE HEALTH EXAM 40-64 11/15/202411/15, 04/30/2020, 08/01/2018 (Completed), Additional history exists MAMMOGRAM 04/18/2025 04/18/2024, 04/18, 04/16/2023, Additional history exists PNEUMOCOCCAL VACCINE FOR HIG H RISK PATIENTS (#2) 2033 04/05/2024, 05/21/2021 SHINGLES VACCINE Completed 01/22/2024, 01/29/2023 INFLUENZA Completed 04/05/2024, 05/18, 05/21/2021, Additional history exists Care Teams Pulmonologist Intensivist Relationship Specialty Start Date End Date Vinny Trujillo MD [address] [place] [address] PCP - General Internal Medicine 03/19/22 Simeon Fowler MD [address] [facility] [address] [place] [address] Bacon Skinner Cardiovascular Disease 04/28/21 Livia Hines NP [address] [facility] [address] [place] [address] Nurse Practitioner Cardiology 07/02/21 Gurmeet Agosto MD, PHD [address] [facility] [address] [place] [address] Surgeon Neurosurgery 11/12/21 Mekhi Maddox PA-C [address] [facility] [address] [place] [address] Specialist Neurosurgery 11/12/21
--- OUTSIDE RECORDS SUMMARY | 2024-08-13 15:39 | XMS_ITS | Encounter Summary ---
Author Organization [facility] Address [address] [place] [address] Care Team Providers Care Political Research Scientist Name Role Phone Vinny Trujillo MD Primary Care Provider [phone] Reason for Visit * Reason Onset Date Comments Prior Authorization 07/05/2024 Encounter Details Date Type Department Care Team (Late st Contact Info) Description 07/05/2024 Telephone Pediatrics - [place] [address] [place] [address] Vinny Trujillo MD [address] [place] [phone] Prior Authorization Social History Tobacco Use Types [...] as of this encounter Progress Notes * La Carroll MA - 07/09/2024 11:04 AM EST Prior authorization for the wegovy was approved Approved from 07/08/24 until 07/08/25 Approval faxed to Prasanth [phone] * La Carroll MA - 07/05/2024 3:49 PM EST Prior authorization for the wegovy was completed today on cmm Dx code E66.812 class 3 obesity Continuation of therapy Office notes added to cmm * Melissa Gunter - 07/05/2024 3:00 PM EST Prior Authorization for Medication-do not complete and send this encounter unless you have the fax from the pharmacy. Is this a Cover My Meds request: Yes -- Villanueva Code [id number] Name of Medication semaglutide (Wegovy) 1.7 mg/0.75 mL injection pen Dose of Medication What is the RX # from the faxed refill? How does patient take this med? Inject 1.7 mg under the skin every 7 (seven) days What Pharmacy did the fax come from: [facility] fax #: [phone] [employer] Information from fax: What Prescription Plan does the patient have? BIN/PCN if applicable: Cardholder ID: Person Code: Relationship Code: Help desk phone: documented in this encounter Plan of Treatment Upcoming Encounters Date Type Department Care Team (Late st Contact Info) Description 08/16/2024 8:40 AM EST Office Visit [facility] [address] [place] [phone] Annabel Gama, JOHN [address] [place] [address] [place], [place] [phone] 08/23/2024 11:30 AM EST Office Visit Obstetrics and Gynecology - [address] [phone] Emily Amos CNM [address] [place] [phone] 08/30/2024 12:30 PM EST Nutrition Bariatric Surgery - [place] [address] [facility] [address] [place] [phone] Madonna Reno, RD 175 [facility] [address] [place] [phone] 11/05/2024 12:00 PM EDT Appointment [facility] Endoscopy [address] [place] [phone] Piter Justin, 175 [facility] [address] [place] [address] 11/15/2024 10:10 AM EDT Office Visit [facility] [address] [place] [phone] Livia Hines NP [address] [place] [address] [address] [place], [place] [phone] 01/03/2025 1:00 PM EDT [facility] [phone] Jose Marcano PA [address] [facility] [place] [address] documented as of this encounter Visit Diagnoses Not on filedocumented in this encounter Care Teams Political Research Scientist Relationship Specialty Start Date End Date Vinny Trujillo MD [address] [facility] [place] [address] PCP - General Internal Medicine 06/08/24 documented as of this encounter
--- OUTSIDE RECORDS SUMMARY | 2024-08-13 15:39 | XMS_ITS | Clinical Summary ---
Author Organization [facility] Address [address] [place] [address] Care Team Providers Care Preschool Special Education Teacher Name Role Phone Nel Romero PA-C Primary Care Provider [phone] Source Comments PLEASE NOTE, if this patient is a minor, it may be UNLAWFUL to discuss sensitive information that is contained in these records (such as FAMILY PLANNING, MENTAL HEALTH or SUBSTANCE ABUSE) with the minor patient's parent or other person without the patient's specific authorization.[facility] Allergies No known active allergies Medications topiramate (TOPAMAX) 200 mg tabletIndicatio ns:Anxiety and depression Take 1 Tab by mouth once daily. 04/18/2013 Active venlafaxine (EFFEXOR XR) 150 mg 24 hr capsuleIndicati ons:Anxiety and depression Take 1 Cap by mouth once daily with breakfast. Swallow whole. Do not break, crush or chew. 04/18/2013 Active venlafaxine (EFFEXOR XR) 37.5 mg 24 hr capsuleIndicati ons:Anxiety and depression Take 1 Cap by mouth once daily with breakfast. Swallow whole. Do not break, crush or chew. 04/18/2013 Active docusate sodium (COLACE) 100 mg capsule Take 1 Cap by mouth nightly at bedtime. 60 Cap 6 04/18/2013 Active polyethylene glycol (GLYCOLAX, MIRALAX) 17 gram packet Take 17 g by mouth once daily. Dissolve contents of packet in a glass (8 oz) of water. 30 Each 6 04/18/2013 Active vitamin D 2,000 unit capsule Take 1 Cap by mouth once daily. 30 Cap 6 04/18/2013 Active vitamin D 2,000 unit capsuleIndicati ons:Mild vitamin D deficiency Take 1 Cap by mouth once daily. 30 Cap 5 01/31/2014 Active Active Problems Problem Noted Date Diagnosed Date BERNA (obstructive sleep apnea) 04/18/2013 Insomnia secondary to situational depression Obesity Mild hyperlipidemia Anxiety and depression Immunizations Name Administration Dates Next Due INFLUENZA, SEASONAL, INJECTABLE 04/18/2013 TDAP 11/20/2008 Social History Tobacco Use Types Packs/Day Years Used Date Smoking Tobacco: Never Smokeless Tobacco: Never Alcohol Use Standard Drinks/Week Comments No 0 (1 standard drink = 0.6 oz pur e alcohol) Comments No Sex and Gender Information Value Date Recorded Sex Assigned at Not on file Legal Sex Female 11:36 AM PDT Gender Identity Not on file Sexual Orientation Not on file Last Filed Vital Signs Vital Sign Reading Time Taken Comments Blood Pressure 110/70 01/31/2014 10:21 AM EDT Pulse 76 01/31/2014 10:21 AM EDT Temperature 36.3 ??C (97.3 ??F) 01/31/2014 10:21 AM E DT Respiratory Rate 18 01/31/2014 10:21 AM EDT Oxygen Saturation - - Inhaled Oxygen Concentration - - Weight 93.4 kg (206 lb) 01/31/2014 10:21 AM EDT Height 161.3 cm (5' 3.5 ) 01/31/2014 10:21 AM ED T Body Mass Index 35.92 01/31/2014 10:21 AM EDT Plan of Treatment Not on file Insurance [place] - [place] Care Teams Preschool Special Education Teacher Relationship Specialty Start Date End Date Nel Romero PA-C [address] [place] [phone] PCP - General 04/18/13
--- OUTSIDE RECORDS SUMMARY | 2024-08-13 15:39 | XMS_ITS | Encounter Summary ---
Author Organization [facility] Address [address] [place] [address] Care Team Providers Care Horn Player Name Role Phone Vinny Trujillo MD Primary Care Provider [phone] Reason for Referral * Imaging (Routine) - Closed Specialty Diagnoses / Procedures Referred By Melissa staples Referred To Contact Radiology Diagnoses Nausea and vomiting, unspecified vomiting type Type 2 diabetes mellitus without complication, unspecified whether half-way insulin use (CMS/HCC) Procedures NM Gastric Emptying Study Rekha Davison MD [address] [phone] [facility] [address] [place] [address] Referral ID Status Reason Start Date Expiration Date Visits Re quested Visits Authorized [id number] Closed 06/21/2024 09/20/2024 1 1 Reason for Visit * Imaging (Routine) - Closed Specialty Diagnoses / Procedures Referred By Melissa staples Referred To Contact Radiology Diagnoses Nausea and vomiting, unspecified vomiting type Type 2 diabetes mellitus without complication, unspecified whether joint terminal attack controller insulin use (CMS/HCC) Procedures NM Gastric Emptying Study Rekha Davison MD [address] [address] [facility] [address] [place] [address] Referral ID Status Reason Start Date Expiration Date Visits Re quested Visits Authorized [id number] Closed 06/21/2024 09/20/2024 1 1 Encounter Details Date Type Department Care Team (Latest Contact Info) Description 08/02/2024 7:48 AM EST - 08/02/2024 11:59 PM EST Hospital Encounter [facility] Nuclear Medicine [address] [place] [address] Nausea and vomiting, unspecified vomiting type; Type 2 diabetes mellitus without complication, unspecified whether half-way insulin use ([facility]) Discharge Disposition: Home or Self Care Social History Tobacco Use Types Packs/Day Years [...] No 06/12/2024 documented as of this encounter Medications at Time of Discharge Medication Sig Dispensed Refills Start Date End Date acetaminophen (TYLENOL 8 HOUR) 650 mg 8 hr tablet Take 1 tablet (650 mg total) by mouth every 8 (eight) hours if needed. 04/05/2024 amitriptyline (ELAVIL) 50 mg tablet Take 10 tablets (500 mg total) by mouth at bedtime. atorvastatin (LIPITOR) 80 mg tablet Take 1 tablet (80 mg total) by mouth 1 (one) time each day. 03/20/2024 azelastine (ASTELIN) 137 mcg (0.1 %) nasal spray 1-2 Sprays by Each Nare route 2 times daily. Use in each nostril as directed 02/19/2021 blood sugar diagnostic (FreeStyle Lite Strips) test strip 1 Strip by In Vitro route 4 times daily. 09/15/2023 blood-glucose meter kit FOR CHECKING SUGARS FASTING IN AM 09/15/2023 09/09/2024 capsaicin-menthol 0.025-10 % gel Apply 1 Applicator topically daily. 07/14/2018 carvediloL (COREG) 12.5 mg tablet Take 1 Tablet by mouth 2 times daily (with meals). 03/20/2024 cholecalciferol (VITAMIN D-3) 50 mcg (2,000 unit) tablet Take 1 tablet (2,000 Units total) by mouth 1 (one) time each day. 30 tablet 2 06/26/2024 09/24/2024 clonazePAM (KlonoPIN) 1 mg tablet Take 1 Tablet by mouth at bedtime. cyanocobalamin (VITAMIN B-12) 100 mcg tablet Take 1 tablet (100 mcg total) by mouth 1 (one) time each day. 30 tablet 2 06/26/2024 09/24/2024 dapagliflozin propanediol (Farxiga) 10 mg tablet TAKE 1 TABLET BY MOUTH DAILY. 90 tablet 3 07/26/2024 deutetrabenazine (Austedo) 6 mg tablet Take 1 tablet by mouth 1 (one) time each day. diclofenac (VOLTAREN) 1 % topical gel Apply 4 g topically 4 times daily as needed (knee pain). 12/14/2023 ezetimibe (ZETIA) 10 mg tablet Take 1 tablet (10 mg total) by mouth 1 (one) time each day. 90 each 1 07/05/2024 01/01/2025 fexofenadine (SOREN) 180 mg tablet Take 1 tablet (180 mg total) by mouth 1 (one) time each day. 02/19/2021 fluticasone-salmeterol (ADVAIR DISKUS) 250-50 mcg/dose diskus inhaler Inhale 1 Puff into the lungs 2 times daily for 90 days. 04/05/[address] [facility] FOR CHECKING SUGARS ONCE DAILY WHILE FASTING 09/15/2023 gabapentin (NEURONTIN) 100 mg capsule Take 1 Capsule by mouth at bedtime. 03/21/2024 levETIRAcetam (KEPPRA) 750 mg tablet Take 750 mg by mouth 2 times daily. lurasidone (LATUDA) 120 mg tablet Take 1 Tab by mouth every morning. montelukast (SINGULAIR) 10 mg tablet Take 1 Tablet by mouth at bedtime for 180 days. 04/05/2024 olopatadine (PATANOL) 0.1 % ophthalmic solution Place 1 Drop into both eyes 2 times daily as needed for Allergies. 02/19/2021 potassium chloride (KLOR-CON) 10 mEq CR tablet Take 1 tablet (10 mEq total) by mouth 1 (one) time each day. 03/20/2024 QUEtiapine (SEROquel) 100 mg tablet Take 3 Tablets by mouth at bedtime. 04/05/2024 sacubitriL-valsartan (Entresto) 24-26 mg per tablet Take 1 tablet by mouth 2 (two) times a day. 03/20/2024 semaglutide (Wegovy) 1.7 mg/0.75 mL injection pen Inject 1.7 mg under the skin every 7 (seven) days. 3 mL 2 07/05/2024 10/03/2024 spironolactone (ALDACTONE) 25 mg tablet TAKE 1 TABLET BY MOUTH DAILY. 90 tablet 3 07/26/2024 topiramate (TOPAMAX) 200 mg tablet Take 200 mg by mouth daily. torsemide (DEMADEX) 20 mg tablet Take 1.5 Tablets by mouth daily (with breakfast) AND 1 Tablet Daily before dinner. Do all this for 360 days. 03/20/2024 03/15/2025 UNABLE TO FIND 1 Each by Does not apply route as needed for Other. 10/04/2023 pantoprazole (PROTONIX) 20 mg EC tablet Take 1 tablet (20 mg total) by mouth 1 (one) time each day. 02/14/2024 08/07/2024 senna (SENOKOT) 8.6 mg tablet TAKE (2) TABLETS BY MOUTH TWICE DAILY. 02/14/2024 08/07/2024 documented as of this encounter Discharge Disposition Disposition Code Departure Means Destination Home or Self Care documented in this encounter Plan of Treatment Upcoming Encounters Date Type Department Care Team (Late st Contact Info) Description 08/16/2024 8:40 AM EST Office Visit [facility] [address] [place] [phone] Annabel Gama NP [address] [place] [address] [place], [place] [id number] 08/23/2024 11:30 AM EST Office Visit Obstetrics and Gynecology - [address] [phone] Emily Amos [address] [address] 08/30/2024 12:30 PM EST Nutrition Bariatric Surgery - [place] [address] [phone] Madonna Reno, RD [address] [phone] 11/05/2024 12:00 PM EDT Appointment [facility] Endoscopy [address] [place] [phone] Piter Justin DO [address] [facility] [address] [place] [address] 11/15/2024 10:10 AM EDT Office Visit [facility] [address] [place] [phone] Livia Hines NP [address] [place] [address] Dr Cuellar [address] [place] [phone] 01/03/2025 1:00 PM EDT Office Visit [facility] [address] [place] [phone] Jose Marcano PA [address] [place] [address] documented as of this encounter Procedures Procedure Name Priority Date/Time Associated Diagnosis Comments NM GASTRIC EMPTYING STUDY Routine 08/02/2024 1:41 PM EST Nausea and vomiting, unspecified vomiting type Type 2 diabetes mellitus without complication, unspecified whether half-way insulin use ([facility]) documented in this encounter Results * NM Gastric Emptying Study (08/02/2024 1:41 PM EST) Anatomical Region Laterality Modality Body Nuclear Medicine 08/03/2024 3:05 PM EST Impressions 08/03/2024 3:06 PM EST Abnormal gastric emptying concerning for gastroparesis. -------- FINAL REPORT -------- Dictated By: Judie Alexis Dictated Date: 08/03/2024 15:05 ET Assigned Physician: Judie Alexis Reviewed and Electronically Signed By: Judie Alexis Signed Date: 08/03/2024 15:06 ET Workstation ID: [id number] Transcribed By: Self Edit Transcribed Date: 08/03/2024 15:05 ET Narrative 08/03/2024 3:06 PM EST HISTORY: Nausea and abdominal pain. FINDINGS: ??Routine radionuclide gastric emptying study was performed following administration of 1.0 mCi of Tc99m sulfur colloid prepared in egg for solid food evaluation. Anterior and posterior imaging obtained. 1 hour retention 84%. Normal <90% 2 hour retention 75%. Normal <60% 3 hour retention 55%. Normal <30% 4 hour retention 55%. Normal <10% Procedure Note Judie Alexis MD - 08/03/2024 HISTORY: Nausea and abdominal pain. FINDINGS: Routine radionuclide gastric emptying study was performedfollowing administration of 1.0 mCi of Tc99m sulfur colloid prepared inegg for solid food evaluation. Anterior and posterior imaging obtained. 1 hour retention 84%. Normal <90% 2 hour retention 75%. Normal <60% 3 hour retention 55%. Normal <30% 4 hour retention 55%. Normal <10% IMPRESSION: Abnormal gastric emptying concerning for gastroparesis. -------- FINAL REPORT -------- Dictated By: Judie Alexis Dictated Date: 08/03/2024 15:05 ET Assigned Physician: Judie Alexis Reviewed and Electronically Signed By: Judie Alexis Signed Date: 08/03/2024 15:06 ET Workstation ID: [id number] Transcribed By: Self Edit Transcribed Date: 08/03/2024 15:05 ET Rekha SOSA documented in this encounter Visit Diagnoses Diagnosis Nausea and vomiting, unspecified vomiting type Type 2 diabetes mellitus without complication, unspecified whether joint terminal attack controller insulin use ([facility]) documented in this encounter Administered Medications Inactive Administered Medications - up to 3 most recent administrations Medication Order MAR Action Action Date Dose Rate Site TC-99M sulfur colloid radio-isotope injection 1 millicurie 1 millicurie, oral, Once in imaging, Starting on Constanza 08/02/24 at 0821, For 1 dose Given 08/02/2024 8:21 AM EST 1 millicurie documented in this encounter Orders Medications Ordered That Robby ht Not Have Been Administered Count Last Ordered Date First Ordered Date TC-99M sulfur colloid radio- isotope injection 1 millicurie 1 08/02/2024 documented in this encounter Care Teams Horn Player Relationship Specialty Start Date End Date Vinny Trujillo MD [address] [place] [id number] PCP - General Internal Medicine 06/08/24 documented as of this encounter
--- OUTSIDE RECORDS SUMMARY | 2024-08-13 15:39 | XMS_ITS | Encounter Summary ---
Author Organization [facility] Address [address] [place] [address] Care Team Providers Care Molded Frames Assembler Name Role Phone Vinny Trujillo MD Primary Care Provider [phone] Reason for Visit * Reason Comments discuss having colonoscopy early due to sister having colon Encounter Details Date Type Department Care Team (Late st Contact Info) Description 07/23/2024 1:40 PM EST Office Visit Gastroenterology - [facility] [address] [address] Nkechi Steen, JOHN 175 [facility] [address] [place] [address] Family history of malignant neoplasm of colon in first degree relative diagnosed when younger than 60 years of age (Primary Dx); Chronic constipation; Gastroesophageal reflux disease without esophagitis Social History Tobacco Use Types Packs/Day Years [...] on file documented as of this encounter Last Filed Vital Signs Vital Sign Reading Time Taken Comments Blood Pressure 100/80 07/23/2024 1:46 PM EST Pulse 95 07/23/2024 1:46 PM EST Temperature - - Respiratory Rate - - Oxygen Saturation 98% 07/23/2024 1:46 PM EST Inhaled Oxygen Concentration - - Weight 103 kg (227 lb) 07/23/2024 1:46 PM EST Height 162.6 cm (5' 4 ) 07/23/2024 1:46 PM EST Body Mass Index 38.96 07/23/2024 1:46 PM EST documented in this encounter Functional Status Functional Status Response [...] as of this encounter Progress Notes * Nkechi Steen, JOHN - 07/23/2024 1:40 PM EST CONSULT REQUEST CHIEF COMPLAINT: discuss having colonoscopy early due to sister having colon HPI: Yadira Perez is a 54 y.o. old female whose PMH includes hearing loss, heart failure with reduced ejection fraction, diabetes mellitus type 2, fibromyalgia, cerebral hemorrhage, left ventricular thrombus, transient ischemic attack, anxiety disorder, bipolar 1 disorder, chronic constipation, GERD, hy percholesterolemia, insomnia, obesity, obstructive sleep apnea, panic disorder without agoraphobia,posttraumatic stress disorder, pulmonary nodules, schizophrenia and vitamin D deficiency was referred to the gastroenterology department today for evaluation of screening colonoscopy. Patient is accompanied by her during this visit. She reports historical colonoscopy in 2018. Per patient, her sister was diagnosed with colon cancer at age 50 in 2019. She was diagnosed with late stage colon cancer and was the same year. She reports she needs colonoscopy as soon aspossible due to her family history. She reports GERD that is well-managed with pantoprazole. She has history of chronic constipation for many years. She was previously following with Dr. Prasad for the same. She has no alarm features. She denies fever or malaise, nausea, vomiting, dysphagia, odynophagia, hematemesis, regurgitation, abdominal pain or discomfort, loss of appetite, unintentional weight loss, change in bowel habits from baseline, melena or hematochezia. Family history of colon cancer in her sister diagnosed at age 50 in 2019. She the same year. EGD 08/11/2021: Normal examined duodenum. Gastritis. Normal esophagus. Dilated. Pathology: Chronic gastritis. Colonoscopy 06/26/[address] Prasad: Large amount of stool in the entire examined colon. No specimens collected. ROS: GENERAL: No malaise, significant weight loss or fever. Left-sided weakness HEENT: No changes in hearing or vision, nose bleeds or swallowing problems RESPIRATORY: No cough, wheezing or shortness of breath CARDIOVASCULAR: No chest pain GI: See HPI SKIN: No lesions, rash or itching PAST MEDICAL HISTORY: Patient Active Problem List Diagnosis Bipolar 1 disorder (CMS/HCC) Blind left eye Cerebral hemorrhage ([facility]) Chest pain Chronic constipation Chronic headache Fibromyalgia Diabetes mellitus type 2, uncomplicated ([facility]/HCC) GERD with esophagitis Hearing loss HFrEF (heart failure with reduced ejection fraction) ([facility]/HCC) Hypercholesterolemia Insomnia Left ventricular thrombus Long QT interval Mild intermittent asthma without complication BERNA (obstructive sleep apnea) Osteoarthritis of both knees Perennial allergic rhinitis Recurrent sinus infections Retinal hemorrhage of left eye Schizophrenia ([facility]/HCC) Seasonal allergies TIA (transient ischemic attack) Vitamin D deficiency Class 2 severe obesity with serious comorbidity and body mass index (BMI) of 39.0 to 39.9 in adult ([facility]) PAST SURGICAL HISTORY: Past Surgical History: Procedure Laterality Date COLONOSCOPY 04/14/2015 PROCEDURE: HISTORICAL COLONOSCOPY; COMMENT: normal,. but mediocre bowel prep; repeat in 3 years COLONOSCOPY 06/26/2018 PROCEDURE: OUTSIDE COLONOSCOPY; COMMENT: normal KNEE SURGERY Right 07/2015 PROCEDURE: HISTORICAL KNEE SURGERY; COMMENT: meniscus LASER ABLATION OF THE CERVIX 1997 PROCEDURE: HI CAUTERY CERVIX LASER ABLATION OTHER SURGICAL HISTORY 06/26/2018 PROCEDURE: OUTSIDE ENDOSCOPY; COMMENT: LA grade A esophagitis TOTAL KNEE ARTHROPLASTY Right 02/03/2023 PROCEDURE: HISTORICAL TOTAL KNEE REPLACE TUBAL LIGATION PROCEDURE: HISTORICAL TUBAL LIGATION SOCIAL HISTORY: Social History Tobacco Use Smoking status: Never Smokeless tobacco: Never Substance Use Topics Alcohol use: No Drug use: No FAMILY HISTORY: Family History Problem Relation Name Age of Onset Stroke Mother 60.00 Other (Other: liver cancer) Father Colon cancer Sister 53.00 mets to the lung Other (Other: erythema nodosum) Sister Other (Other: erythema nodosum) Sister Hypertension Daughter Diabetes Daughter Other cancer Daughter some type of cervical. Had cervix removed. Asthma Daughter Other (Other: juvenile rheumatoid arthritis) Daughter Diabetes Grandparent HTN Breast cancer Neg Hx MEDICATIONS: Outpatient Medications Marked as Taking for the 07/23/24 encounter (Office Visit) with Nkechi Steen NP Medication Sig Dispense Refill acetaminophen (TYLENOL 8 HOUR) 650 mg 8 hr tablet Take 1 tablet (650 mg total) by mouth every 8 (eight) hours if needed. amitriptyline (ELAVIL) 50 mg tablet Take 10 tablets (500 mg total) by mouth at bedtime. atorvastatin (LIPITOR) 80 mg tablet Take 1 tablet (80 mg total) by mouth 1 (one) time each day. azelastine (ASTELIN) 137 mcg (0.1 %) nasal spray 1-2 Sprays by Each Nare route 2 times daily. Use in each nostril as directed blood sugar diagnostic (FreeStyle Lite Strips) test strip 1 Strip by In Vitro route 4 times daily. blood-glucose meter kit FOR CHECKING SUGARS FASTING IN AM capsaicin-menthol 0.025-10 % gel Apply 1 Applicator topically daily. carvediloL (COREG) 12.5 mg tablet Take 1 Tablet by mouth 2 times daily (with meals). cholecalciferol (VITAMIN D-3) 50 mcg (2,000 unit) tablet Take 1 tablet (2,000 Units total) by mouth1 (one) time each day. 30 tablet 2 clonazePAM (KlonoPIN) 1 mg tablet Take 1 Tablet by mouth at bedtime. cyanocobalamin (VITAMIN B-12) 100 mcg tablet Take 1 tablet (100 mcg total) by mouth 1 (one) time each day. 30 tablet 2 dapagliflozin propanediol (Farxiga) 10 mg tablet Take 1 tablet (10 mg total) by mouth 1 (one) time each day. deutetrabenazine (Austedo) 6 mg tablet Take 1 tablet by mouth 1 (one) time each day. diclofenac (VOLTAREN) 1 % topical gel Apply 4 g topically 4 times daily as needed (knee pain). ezetimibe (ZETIA) 10 mg tablet Take 1 tablet (10 mg total) by mouth 1 (one) time each day. 90 each 1 fexofenadine (SOREN) 180 mg tablet Take 1 tablet (180 mg total) by mouth 1 (one) time each day. fluticasone-salmeterol (ADVAIR DISKUS) 250-50 mcg/dose diskus inhaler Inhale 1 Puff into the lungs 2 times daily for 90 days. FREESTYLE LANCETS MISC FOR CHECKING SUGARS ONCE DAILY WHILE FASTING gabapentin (NEURONTIN) 100 mg capsule Take 1 Capsule by mouth at bedtime. levETIRAcetam (KEPPRA) 750 mg tablet Take 750 mg by mouth 2 times daily. lurasidone (LATUDA) 120 mg tablet Take 1 Tab by mouth every morning. montelukast (SINGULAIR) 10 mg tablet Take 1 Tablet by mouth at bedtime for 180 days. olopatadine (PATANOL) 0.1 % ophthalmic solution Place 1 Drop into both eyes 2 times daily as neededfor Allergies. pantoprazole (PROTONIX) 20 mg EC tablet Take 1 tablet (20 mg total) by mouth 1 (one) time each day. potassium chloride (KLOR-CON) 10 mEq CR tablet Take 1 tablet (10 mEq total) by mouth 1 (one) time each day. QUEtiapine (SEROquel) 100 mg tablet Take 3 Tablets by mouth at bedtime. sacubitriL-valsartan (Entresto) 24-26 mg per tablet Take 1 tablet by mouth 2 (two) times a day. semaglutide (Wegovy) 1.7 mg/0.75 mL injection pen Inject 1.7 mg under the skin every 7 (seven) days. 3 mL 2 senna (SENOKOT) 8.6 mg tablet TAKE (2) TABLETS BY MOUTH TWICE DAILY. spironolactone (ALDACTONE) 25 mg tablet Take 1 tablet (25 mg total) by mouth 1 (one) time each day. topiramate (TOPAMAX) 200 mg tablet Take 200 mg by mouth daily. torsemide (DEMADEX) 20 mg tablet Take 1.5 Tablets by mouth daily (with breakfast) AND 1 Tablet Daily before dinner. Do all this for 360 days. UNABLE TO FIND 1 Each by Does not apply route as needed for Other. ALLERGIES: Allergies Allergen Reactions Cat Dander Dog Dander Grass Pollen Latex Rash Other Pollen Extracts PHYSICAL EXAM: Visit Vitals BP 100/80 Pulse 95 Ht 1.626 m (64 ) Wt 103 kg (227 lb) SpO2 98% BMI 38.96 kg/m?? OB Status Postmenopausal Smoking Status Never BSA 2.06 m?? APPEARANCE: Alert and in no acute distress EYES: Conjunctiva and sclera normal. MOUTH/THROAT: No erythema, exudates or lesions noted NECK: Neck supple, no adenopathy HEART: RRR with normal S1 and S2 LUNG: Clear to auscultation ABDOMEN: Soft non tender, no ascites, guarding. RECTAL: Exam deferred NEURO: Awake, alert and oriented x 3 SKIN: Skin color, texture, turgor normal. LABS: Lab Results Component Value Date WBC 6.6 06/12/2024 HGB 13.3 06/12/2024 HCT 40.3 06/12/2024 MCV 103.3 (H) 06/12/2024 PLT 165 06/12/2024 Lab Results Component Value Date ALT 25 07/12/2024 AST 14 07/12/2024 ALKPHOS 82 07/12/2024 BILITOT 0.3 07/12/2024 IMAGING: No results found for this or any previous visit from the past 365 days. IMPRESSION: 1. Family history of malignant neoplasm of colon in first degree relative diagnosed when younger than 60 years of age 2. Chronic constipation 3. GERD PLAN: Yadira Perez is a 54 y.o. old female whose PMH includes hearing loss, heart failure with reduced ejection fraction, diabetes mellitus type 2, fibromyalgia, cerebral hemorrhage, left ventricular thrombus, transient ischemic attack, anxiety disorder, bipolar 1 disorder, chronic constipation, GERD, hy percholesterolemia, insomnia, obesity, obstructive sleep apnea, panic disorder without agoraphobia,posttraumatic stress disorder, pulmonary nodules, schizophrenia and vitamin D deficiency presents for evaluation for colonoscopy. 1. Family history of malignant neoplasm of colon in first-degree relative diagnosed when younger than 60 years of age: History of colon cancer in her sister diagnosed at age 50. Colonoscopy 06/26/[address] Prasad: Large amount of stool in the entire examined colon. No specimens collected. Schedule colonoscopy. Patient understands the risks of colonoscopy include infection, bleeding and/or bowel perforation with its own emergent surgery and complication. Polypectomy and/or tissue biopsy may be performed during the procedure. 2. Chronic constipation: This is chronic for many years. Encouraged to increase dietary fiber and fluid intake. May use Metamucil or Benefiber. Continue taking Senokot as directed. 3. GERD: Well-managed with pantoprazole. Encouraged to identify and eliminate triggers. Maximize dietary lifestyle changes. Continue taking PPI as directed. Follow-up after colonoscopy or sooner if needed. Patient agrees with the above plan and understands the need to follow up as indicated. Please note, this note may have been created in part by using [employer] dictation software, and therefore, it may contain typographical and/or grammatical errors inherent in a voice recognition software program No orders of the defined types were placed in this encounter. None documented in this encounter Plan of Treatment Upcoming Encounters Date Type Department Care Team (Late st Contact Info) Description 08/16/2024 8:40 AM EST Office Visit [facility] - [facility] [address] [place] [address] Annabel Gama NP [address] [place] [address] [place] [address] 08/23/2024 11:30 AM EST Office Visit Obstetrics and Gynecology - [address] [address] Emily Amos CNM [address] [place] [address] 08/30/2024 12:30 PM EST Nutrition Bariatric Surgery - [facility] 175 [facility] [address] [place] [address] Madonna Reno, RD 175 [facility] [address] [place] [address] 11/05/2024 12:[address] [facility] Endoscopy [address] [place] [id number] Piter Justin DO 175 [facility] [address] [place] [address] 11/15/2024 10:10 AM EDT Office Visit [facility] - [facility] [address] [place] [address] Livia Hines NP [address] [place] [address] [address] [place] [address] 01/03/2025 1:00 PM EDT Office Visit Language Asst - [facility] [address] [place] [id number] Jose Marcano PA [address] [place] [address] documented as of this encounter Visit Diagnoses Diagnosis Family history of malignant neoplasm of colon in first degree relative diagnosed when younger than 60 years of age- Primary Chronic constipation Unspecified constipation Gastroesophageal reflux disease without esophagitis Esophageal reflux documented in this encounter Care Teams Molded Frames Assembler Relationship Specialty Start Date End Date Vinny Trujillo MD [address] [place] [address] PCP - General Internal Medicine 06/08/24 documented as of this encounter
--- OUTSIDE RECORDS SUMMARY | 2024-08-13 15:39 | XMS_ITS | Encounter Summary ---
Author Organization [facility] Address [address] [place] [address] Care Team Providers Care Cognos Report Developer Name Role Phone Simeon Fowler MD Unavailable [phone] Livia Hines NP Unavailable [phone] Gurmeet Agosto MD, PHD Unavailable Unava Mekhi Sotelo PA-C Unavailable [phone] Vinny Trujillo MD Primary Care Provider [phone] Encounter Details Date Type Department Care Team Description 04/18/2023 Orders Only Medical Records [address] [place] [id number] Abstract, Provider Social History Tobacco Use Types [...] Date/Time Associated Diagnosis Comments OUTSIDE MAMMO Routine 04/16/2023 documented in this encounter Results * OUTSIDE MAMMO (04/16/2023) Vinny Trujillo MD RADIOLOGY documented in this encounter Visit Diagnoses Not on filedocumented in this encounter Care Teams Cognos Report Developer Relationship Specialty Start Date End Date Vinny Trujillo MD [address] [place] [address] PCP - General Internal Medicine 03/19/22 Simeon Fowler MD [address] [place] [address] [address] [place] [address] Electrical Contractor Cardiovascular Disease 04/28/21 Livia Hines NP [address] [place] [address] [address] [place] [address] Nurse Practitioner Cardiology 07/02/21 Gurmeet Agosto MD, PHD [address] [place] [address] [address] [place] [address] Surgeon Neurosurgery 11/12/21 Mekhi Maddox PA-C [address] [place] [address] [address] [place] [address] Specialist Neurosurgery 11/12/21 documented as of this encounter
--- OUTSIDE RECORDS SUMMARY | 2024-08-13 15:39 | XMS_ITS | Encounter Summary ---
Author Organization [facility] Address [address] [place] [address] Care Team Providers Care Hydro Technician Name Role Phone Simeon Fowler MD Unavailable [phone] Livia Hines NP Unavailable [phone] Gurmeet Agosto MD, PHD Unavailable Unava ilable Mekhi Maddox PA-C Unavailable [phone] Vinny Trujillo MD Primary Care Provider [phone] Reason for Visit * Reason Comments E-prescribe Rx Request Encounter Details Date Type Department Care Team Description 04/12/2024 Refill Medicine/Pediatrics - [address] [address] Jose Marcano PA-C [address] [place] [address] E-prescribe Rx Request Social History Tobacco Use [...] encounter Miscellaneous Notes * Telephone Encounter - Katja Mittal M.A. - 04/12/2024 4:28 PM EDT Date of last office visit was 04/05/24. Pended appt for 07/05/24 Lab Results Component Value Date HGBA1C 6.2 04/05/2024 MALBUR 20.8 09/15/2023 MALBCR 18.4 09/15/2023 CHOL 162 10/26/2023 LDL 73 10/26/2023 HDL 62 10/26/2023 TRIG 137 10/26/2023 GLU 127 04/05/2024 CREAT 0.96 04/05/2024 * Telephone Encounter - Melissa Gunter - 04/12/2024 12:47 PM EDT Patient would like script to be: E-PRESCRIBED/FAXED TO PHARMACY WHEN WAS THE PATIENT'S LAST APPOINTMENT IN ADULT MEDICINE? 04/05/24 WHEN WAS THE LAST TIME THE PATIENT SAW THEIR PCP? Does patient have an upcoming appointment? Yes 07/05/24 (THE MEDICATION REQUESTED IS ON THE MED LIST ABOVE) All of the medications requested were on the CURRENT MEDS list Did you check the Pharmacy information above?: YES Patient wants: 90 -day supply Is this a mail order prescription request ? NO If the refill is from a FAXED refill request what is the RX # listed on the fax? N/A Patients current insurance carrier is: Payor: [employer] [facility] [employer] MCR / Plan: [facility] / Product Type: HMO [id number] documented in this encounter Plan of Treatment Not on file documented as of this encounter Visit Diagnoses Not on filedocumented in this encounter Care Teams Hydro Technician Relationship Specialty Start Date End Date Vinny Trujillo MD [address] [place] [address] PCP - General Internal Medicine 03/19/22 Simeon Fowler MD [address] [place] [address] [address] [place] [address] Translator Interpreter Cardiovascular Disease 04/28/21 Livia Hines NP [address] [place] [address] [address] [place] [address] Nurse Practitioner Cardiology 07/02/21 Gurmeet Agosto MD, PHD [address] [place] [address] [address] [place] [address] Surgeon Neurosurgery 11/12/21 Mekhi Maddox PA-C [address] [place] [address] [address] [place] [address] Specialist Neurosurgery 11/12/21 documented as of this encounter
--- OUTSIDE RECORDS SUMMARY | 2024-08-13 15:40 | XMS_ITS | Encounter Summary ---
Author Organization [facility] Address [address] [place] [address] Care Team Providers Care Manager Filter Name Role Phone Ambreen Hazel MD Primary Care Provider Oneyda vailable Alberto, Pcp Primary Care Provider Unavailabl e Ambreen Hazel MD Primary Care Provider Oneyda vailable Vinny Trujillo MD Primary Care Provider [phone] Simeon Fowler MD Unavailable [phone] Livia Hines NP Unavailable [phone] Emile Clinton MD Primary Care Provider [phone] Freda Knapp MD Primary Care Provider U Gurmeet Medina MD, PHD Unavailable Unava ilMekhi SouzaC Unavailable [phone] Vinny Trujillo MD Primary Care Provider [phone] Encounter Details Date Type Department Care Team Description 05/20/2017 Business Doc Medical Records [address] [place] [address] Abstract, Provider Social History Tobacco Use Types [...] on filedocumented in this encounter Care Teams Manager Filter Relationship Specialty Start Date End Date Ambreen Hazel MD PCP - General Internal Medicine 01/05/16 [facility], Pcp PCP - General Internal Medicine 07/16/19 07/26/19 Ambreen Hazel MD PCP - General Internal Medicine 07/27/19 Vinny Trujillo MD [address] [place] [address] PCP - General Internal Medicine 04/22/21 10/11/21 Emile Clinton MD [address] [place] [address] PCP - General Internal Medicine 10/12/21 10/15/21 Freda Knapp MD [address] [place] [address] PCP - General Internal Medicine 10/16/21 03/18/22 Vinny Trujillo MD [address] [place] [address] PCP - General Internal Medicine 03/19/22 Simeon Fowler MD [address] [place] [address] [address] [place] [address] Vulcanizer Operator Cardiovascular Disease 04/28/21 Livia Hinse NP [address] [place] [address] [address] [place] [address] Nurse Practitioner Cardiology 07/02/21 Gurmeet Agosto MD, PHD [address] [place] [address] Surgeon Neurosurgery 11/12/21 Mekhi Maddox PA-C 175 [facility] [address] [place] [address] Specialist Neurosurgery 11/12/21 documented as of this encounter
--- OUTSIDE RECORDS SUMMARY | 2024-08-13 15:40 | XMS_ITS | Encounter Summary ---
Author Organization [facility] Address [address] [place] [address] Care Team Providers Care Gas Producer Name Role Phone Ambreen Hazel MD Primary Care Provider Oneyda vailable [facility], Pcp Primary Care Provider Unavailabl e Ambreen Hazel MD Primary Care Provider Oneyda vailable Vinny Trujillo MD Primary Care Provider [phone] Simeon Fowler MD Unavailable [phone] Livia Hines NP Unavailable [phone] Emile Clinton MD Primary Care Provider [phone] Freda Knapp MD Primary Care Provider U Gurmeet Medina MD, PHD Unavailable Unava ilable Mekhi MaddoxC Unavailable [phone] Vinny Trujillo MD Primary Care Provider [phone] Encounter Details Date Type Department Care Team Description 05/09/2019 Q[facility] Lab Technician Report Medical Records [address] [place] [address] Ting Rader MD Social History Tobacco Use [...] on filedocumented in this encounter Care Teams Gas Producer Relationship Specialty Start Date End Date Ambreen Hazel MD PCP - General Internal Medicine 01/05/16 [facility], [facility] PCP - General Internal Medicine 07/16/19 07/26/19 Ambreen Hazel MD PCP - General Internal Medicine 07/27/19 Vinny Trujillo MD [address] [place] [address] PCP - General Internal Medicine 04/22/21 10/11/21 Emile Clinton MD [address] [place] [address] PCP - General Internal Medicine 10/12/21 10/15/21 Freda Knapp MD [address] [place] [address] PCP - General Internal Medicine 10/16/21 03/18/22 Vinny Trujillo MD [address] [place] [address] PCP - General Internal Medicine 03/19/22 Simeon Fowler MD [address] [place] [address] [place] [address] Boat Repairer Cardiovascular Disease 04/28/21 Livia Hines NP [address] [place] [address] [address] [place] [address] Nurse Practitioner Cardiology 07/02/21 Gurmeet Agosto MD, PHD [address] [place] [address] Surgeon Neurosurgery 11/12/21 Mekhi Maddox PA-C 175 [facility] [address] [place] [address] Specialist Neurosurgery 11/12/21 documented as of this encounter
--- OUTSIDE RECORDS SUMMARY | 2024-08-13 15:40 | XMS_ITS | Encounter Summary ---
Author Organization [facility] Address [address] [place] [address] Care Team Providers Care Risk Control Manager Name Role Phone Ambreen Hazel MD Primary Care Provider Oneyda Vinny Arguello MD Primary Care Provider [phone] Simeon Fowler MD Unavailable [phone] Livia Hines NP Unavailable [phone] Emile Clinton MD Primary Care Provider [phone] Freda Knapp MD Primary Care Provider U Gurmeet Medina MD, PHD Unavailable UnaMekhi Mcdowell PA-C Unavailable [phone] Vinny Trujillo MD Primary Care Provider [phone] Reason for Visit * Reason Onset Date Comments Abdominal Pain 08/16/2019 digestive disorder 08/16/2019 Encounter Details Date Type Department Care Team Description 08/16/2019 Telephone Gastroenterology - [place] [facility] [address] [place] [phone] Sin Prasad MD Abdominal Pain; digestive disorder Social History Tobacco Use Types Packs/Day Years [...] encounter Miscellaneous Notes * Telephone Encounter - Christian Bautista PA-C - 08/16/2019 4:01 PM EST Yes please book * Telephone Encounter - Thelma Kimball M.A. - 08/16/2019 10:35 AM EST Spoke to patient she states that she has been constipated for mths now . Lower bottom belly pain. No Fever No nausea Some bleeding when shr tries to have a BM. Would you like for me to book her? * Telephone Encounter - Sue Guerrero - 08/16/2019 10:03 AM EST Symptoms patient is having: Patient states she is experiencing abdominal pain with no bowl movements for a while now. Patient wants to be seen. Please advise If pain or injury related was it due to an accident at work or from a motor vehicle accident? NO If yes, gather 3rd republican insurance information Date of accident/Injury: N/A How long has patient had these symptoms?: weeks PCP: Ambreen Hazel Payor: [facility] [employer] MCR / Plan: [facility] [employer] / Product Type: HMO [id number] documented in this encounter Plan of Treatment Not on file documented as of this encounter Visit Diagnoses Not on filedocumented in this encounter Care Teams Risk Control Manager Relationship Specialty Start Date End Date Ambreen Hazel MD PCP - General Internal Medicine 07/27/19 1 Vinny Trujillo MD [address] [place] [address] PCP - General Internal Medicine 04/22/21 10/11/21 Emile Clinton MD [address] [place] [address] PCP - General Internal Medicine 10/12/21 10/15/21 Freda Knapp MD [address] [place] [address] PCP - General Internal Medicine 10/16/21 03/18/22 Vinny Trujillo MD [address] [place] [address] PCP - General Internal Medicine 03/19/22 Simeon Fowler MD [address] [place] [address] [address] [place] [address] Paintings Conservator Cardiovascular Disease 04/28/21 Livia Hines NP [address] [place] [address] [address] [place] [address] Nurse Practitioner Cardiology 07/02/21 Gurmeet Agosto MD, PHD [address] [place] [address] Surgeon Neurosurgery 11/12/21 Mekhi Maddox PA-C [address] [place] [address] [address] [place] [address] Specialist Neurosurgery 11/12/21 documented as of this encounter
--- OUTSIDE RECORDS SUMMARY | 2024-08-13 15:40 | XMS_ITS | Encounter Summary ---
Author Organization [facility] Address [address] [place] [address] Care Team Providers Care Excel Specialist Name Role Phone Ambreen Hazel MD Primary Care Provider Oneyda vailable [facility], Pcp Primary Care Provider Unavailabl e Ambreen Hazel MD Primary Care Provider Oneyda vailable Vinny Trujillo MD Primary Care Provider [phone] Simeon Fowler MD Unavailable [phone] Livia Hines NP Unavailable [phone] Emile Clinton MD Primary Care Provider [phone] Freda Knapp MD Primary Care Provider U Gurmeet Medina MD, PHD Unavailable Unava ilMekhi Souza PA-C Unavailable [phone] Vinny Trujillo MD Primary Care Provider [phone] Reason for Visit * Reason Onset Date Comments Provider Call Back 06/08/2019 Encounter Details Date Type Department Care Team Description 06/08/2019 Telephone Medicine/Pediatrics [address] [phone] Ambreen Hazel MD Provider Call Back Social History Tobacco Use [...] Miscellaneous Notes * Telephone Encounter - Carla Mena - 06/08/2019 3:21 PM EST Caller requesting call back from provider: Is the caller the patient? YES If caller is not the patient, what is the callers name? N/A Callers relationship to patient? N/A If person calling is not the patient themselves, is there a verbal release in FYI or permanent comments for this person: NO Reason for call back: Patient received letter stating she is being terminated from the office due to no shows. Patient believes this is a mistake and would like to discuss. Caller offered to speak with the nurse for assistance: YES Response: Patient offered to speak with nurse for assistance and patient agreed. Message forwarded to nurse. documented in this encounter Plan of Treatment Not on file documented as of this encounter Visit Diagnoses Not on filedocumented in this encounter Care Teams Excel Specialist Relationship Specialty Start Date End Date Ambreen Hazel MD PCP - General Internal Medicine 01/05/16 [facility] PCP - General Internal Medicine 07/16/19 07/26/19 Ambreen Hazel MD PCP - General Internal Medicine 07/27/19 Vinny Trujillo MD [address] [place] [address] PCP - General Internal Medicine 04/22/21 10/11/21 Emile Clinton MD [address] [place] [address] PCP - General Internal Medicine 10/12/21 10/15/21 Freda Knapp MD [address] [place] [address] PCP - General Internal Medicine 10/16/21 03/18/22 Vinny Trujillo MD [address] [place] [address] PCP - General Internal Medicine 03/19/22 Simeon Fowler MD [address] [place] [address] [address] [place] [address] Assistant Finance Manager Cardiovascular Disease 04/28/21 Livia Hines NP [address] [place] [address] [address] [place] [address] Nurse Practitioner Cardiology 07/02/21 Gurmeet Agosto MD, PHD [address] [place] [address] Surgeon Neurosurgery 11/12/21 Mekhi Maddox PA-C 175 [facility] [address] [place] [address] Specialist Neurosurgery 11/12/21 documented as of this encounter
--- OUTSIDE RECORDS SUMMARY | 2024-08-13 15:40 | XMS_ITS | Encounter Summary ---
Author Organization [facility] Address [address] [place] [address] Care Team Providers Care Auto Repair Technician Name Role Phone Tiffany Angel MD Primary Care Provider Unava Chanell Mckinnon MD Primary Care Provider Unavaila Ambreen Mack MD Primary Care Provider Oneyda vailable [facility], Pcp Primary Care Provider Unavailabl Ambreen Kyle MD Primary Care Provider Oneyda vailable Vinny Trujillo MD Primary Care Provider [phone] Simeon Fowler MD Unavailable [phone] Livia Hines NP Unavailable [phone] Emile Clinton MD Primary Care Provider [phone] Freda Knapp MD Primary Care Provider U Gurmeet Medina MD, PHD Unavailable Unava margaretteable Mekhi Maddox PA-C Unavailable [phone] Vinny Trujillo MD Primary Care Provider [phone] Encounter Details Date Type Department Care Team Description 09/13/2014 [facility] Medical Records [address] [place] [address] Abstract, Provider Social History Tobacco Use Types [...] on filedocumented in this encounter Care Teams Auto Repair Technician Relationship Specialty Start Date End Date Tiffany Angel MD PCP - General Internal Medicine 07/12/14 03/30/15 Chanell Will MD PCP - General Internal Medicine 03/31/15 01/04/16 Ambreen Hazel MD PCP - General Internal Medicine 01/05/16 [facility] PCP - General Internal Medicine 07/16/19 07/26/19 Ambreen Hazel MD PCP - General Internal Medicine 07/27/19 Vinny Trujillo MD [address] [place] [address] PCP - General Internal Medicine 04/22/21 10/11/21 Emile Clinton MD [address] [place] [address] PCP - General Internal Medicine 10/12/21 10/15/21 Freda Knapp MD [address] [place] [address] PCP - General Internal Medicine 10/16/21 03/18/22 Vinny Trujillo MD [address] [place] [address] PCP - General Internal Medicine 03/19/22 Simeon Fowler MD [address] [place] [address] [place] [address] Animal Care Provider Cardiovascular Disease 04/28/21 Livia Hines NP [address] [place] [address] [address] [place] [address] Nurse Practitioner Cardiology 07/02/21 Gurmeet Agosto MD, PHD [address] [place] [address] Surgeon Neurosurgery 11/12/21 Mekhi Maddox PA-C [address] [place] [address] [address] [place] [address] Specialist Neurosurgery 11/12/21 documented as of this encounter
--- OUTSIDE RECORDS SUMMARY | 2024-08-13 15:40 | XMS_ITS | Encounter Summary ---
Author Organization [facility] Address [address] [place] [address] Care Team Providers Care Scroll Machine Operator Name Role Phone Ambreen Hazel MD Primary Care Provider Oneyda vailable [facility], Pcp Primary Care Provider Unavailabl e Ambreen Hazel MD Primary Care Provider Oneyda vailable Vinny Trujillo MD Primary Care Provider [phone] Simeon Fowler MD Unavailable [phone] Livia Hines NP Unavailable [phone] Emile Clinton MD Primary Care Provider [phone] Freda Knapp MD Primary Care Provider U Gurmeet Medina MD, PHD Unavailable Unava ilMekhi Souza PA-C Unavailable [phone] Vinny Trujillo MD Primary Care Provider [phone] Encounter Details Date Type Department Care Team Description 02/07/2018 [facility] [address] [place] [address] Abstract, Provider Bilateral post-traumatic osteoarthritis of knee Social History Tobacco Use Types Packs/Day Years [...] Procedure Name Priority Date/Time Associated Diagnosis Comments MRI OF LEG JOINT / LOWER EXTREMITY JOINT NO CONTRAST Routine 01/20/2018 Bilateral post-traumatic osteoarthritis of knee documented in this encounter Results * MRI OF HIPS/KNEES/ANKLE JOINTS NO CONTRAST (01/20/2018) Ozzie Stephens PA-C MRI documented in this encounter Visit Diagnoses Diagnosis Bilateral post-traumatic osteoarthritis of knee documented in this encounter Care Teams Scroll Machine Operator Relationship Specialty Start Date End Date Ambreen Hazel MD PCP - General Internal Medicine 01/05/16 [facility] PCP - General Internal Medicine 07/16/19 07/26/19 Ambreen Hazel MD PCP - General Internal Medicine 07/27/19 1 Vinny Trujillo MD [address] [place] [address] PCP - General Internal Medicine 04/22/21 10/11/21 Emile Clinton MD [address] [place] [address] PCP - General Internal Medicine 10/12/21 10/15/21 Freda Knapp MD [address] [place] [address] PCP - General Internal Medicine 10/16/21 03/18/22 Vinny Trujillo MD [address] [place] [address] PCP - General Internal Medicine 03/19/22 Simeon Fowler MD [address] [place] [address] [address] [place] [address] Box Car Loader Cardiovascular Disease 04/28/21 Livia Hines NP [address] [place] [address] [address] [place] [address] Nurse Practitioner Cardiology 07/02/21 Gurmeet Agosto MD, PHD [address] [place] [address] Surgeon Neurosurgery 11/12/21 Mekhi Maddox PA-C 175 [facility] [address] [place] [address] Specialist Neurosurgery 11/12/21 documented as of this encounter
--- OUTSIDE RECORDS SUMMARY | 2024-08-13 15:40 | XMS_ITS | Encounter Summary ---
Author Organization [facility] Address [address] [place] [address] Care Team Providers Care City Plant Supervisor Name Role Phone Vinny Trujillo MD Primary Care Provider [phone] Encounter Details Date Type Department Care Team (Late st Contact Info) Description 07/30/2024 1:00 PM EST Nutrition Bariatric Surgery - [address] [phone] Madonna Reno, RD [address] [phone] Class 2 severe obesity with serious comorbidity and body mass index (BMI) of 38.0 to 38.9 in adult, unspecified obesity type (CMS/HCC) (Primary Dx) Social History Tobacco Use Types Packs/Day Years [...] Sign Reading Time Taken Comments Blood Pressure - - Pulse - - Temperature - - Respiratory Rate - - Oxygen Saturation - - Inhaled Oxygen Concentration - - Weight 100 kg (221 lb 8 oz) 07/30/2024 1:[address] Height - - Body Mass Index 38.02 07/23/2024 1:46 PM EST documented in this [...] as of this encounter Progress Notes * Madonna Reno RD - 07/30/2024 1:00 PM EST Patient-created Goals: -join [employer] to get a workout in three days a week -psych document -2 group sessions evenings, upstairs in cafeteria 5:30 - 6:30 pm Madonna Reno RDN Bariatric Dietitian [facility] [email or web address] [phone] F [phone] [place] [address], [address] * Madonna Reno RD - 07/30/2024 1:00 PM EST NUTRITION FOLLOW-UP NOTE: Patient Name: Yadira Perez Date of : 1970 Date of Service: 07/30/2024 SURGEON: Rekha Davison MD DESIRED SURGERY: Gastric Bypass CHIEF COMPLAINT: Obesity HISTORY: Yadira Perez is a 54 y.o. female who presents for nutrition visit for Pre-op bariatric surgery 2nd Ht Readings from Last 1 Encounters: 07/23/24 1.626 m (64 ) Wt today: Wt Readings from Last 4 Encounters: 07/30/24 100 kg (221 lb 8 oz) 07/23/24 103 kg (227 lb) 07/05/24 102 kg (224 lb) 06/26/24 101 kg (223 lb) Body mass index is 38.02 kg/m??. Wt at initial: 223 Wt change since initial: -2 EBW = current - wt at BMI of 25: Challenges: no challenges Changes since last visit: added yogurt EATING HABITS/DIET RECALL: Breakfast: boiled eggs (2) wheat toast (2) Lunch: [place] sandwich, diet cheese, diet levine and 100% wheat Dinner: salad (oil, vinegar), egg, chicken Snacks: yogurt, banana, orange, apple Beverages: water (4 bottles), Orgain Dines out: No Exercise: planning to join [employer] Reasons pt cannot exercise: no Nutrition diagnosis: Class Class II obesity related to Undesirable Food Choices and Inadequate Physical Activity as evidenced by A BMI 38 Patient-created Goals: -join [employer] to get Literature Provided: Goal sheets and RD contact information Interventions: Discuss the importance of eating at least 3 meals/day and the impact on metabolism and Discussed the importance of drinking enough water Nutrition assessment: Pt is 54 y.o. Female with h/o has a past medical history of Anxiety disorder,Bipolar 1 disorder (CMS/HCC) (08/23/2014), Blind left eye, Chronic constipation (01/16/2016), Constipation (01/16/2016), GERD with esophagitis (05/22/2018), Hypercholesterolemia (09/25/2014), Insomnia (08/23/2014), Obesity (BMI 30-39.9), BERNA (obstructive sleep apnea) (04/18/2013), Panic disorder without agoraphobia, PTSD (post-traumatic stress disorder), Pulmonary nodules, Schizophrenia (CMS/HCC)(08/23/2014), and Vitamin D deficiency (09/25/2014). She has no past medical history of History of malignant neoplasm of large intestine, Personal history of malignant neoplasm of breast, Personal history of malignant neoplasm of ovary, or Solitary cyst of breast. Obesity class III Stage of change/Barriers to understanding: Pt is motivated to make changes to diet and lifestyle and No barriers to understanding Concerns regarding considerations for bariatric surgery: Pt voiced none and RD has none Monitoring/Evaluation: Monitor weight, Monitor progress toward nutrition goals, and Monitor compliance with program overall Patient nutritionally ready for surgery: Yes RD to see patient for follow-up nutrition visit in 1 month Visit Time: The total time of this visit was 30 minutes of which we spent 30minutes (>50% of the time spent)in direct [id number] consultation for counseling, reviewing medical record and/or coordinating the plan as described above. Madonna Reno RD NUTRITION SERVICES documented in this encounter Plan of Treatment Upcoming Encounters Date Type Department Care Team (Late st Contact Info) Description 08/16/2024 8:40 AM EST Office Visit [facility] - [address] [place] [address] Annabel Gama NP [address] [place] [address] [place] [address] 08/23/2024 11:30 AM EST Office Visit Obstetrics and Gynecology - [address] [phone] Emily Amos CNM [address] [place] [address] 08/30/2024 12:30 PM EST Nutrition Bariatric Surgery - [place] 175 [facility] [address] [place] [phone] 175 [facility] [address] [place] [phone] 11/05/2024 12:00 PM EDT Appointment [facility] [address] [place] [phone] Piter Justin DO 175 [facility] [address] [place] [address] 11/15/2024 10:10 AM EDT Office Visit [facility] - [facility] [address] [place] [address] Livia Hines NP [address] [facility] [address] [place] [address] 01/03/2025 1:00 PM EDT Office Visit Comparative Sociology Professor - [facility] [address] [place] [address] Jose Marcano PA [address] [place] [address] documented as of this encounter Visit Diagnoses Diagnosis Class 2 severe obesity with serious comorbidity and body mass index (BMI) of 38.0 to 38.9 in adult, unspecified obesity type (CMS/HCC)- Primary documented in this encounter Care Teams City Plant Supervisor Relationship Specialty Start Date End Date Vinny Trujillo MD [address] [facility] [place] [address] PCP - General Internal Medicine 06/08/24 documented as of this encounter
--- OUTSIDE RECORDS SUMMARY | 2024-08-13 15:41 | XMS_ITS | Clinical Summary ---
Author Organization [address] [place] [address] Address [address] [place] [address] Phone Care Team Providers Care Laundry Worker Name Role Phone Niru Trujillo MD Primary Care Provider [phone] Allergies Active Allergy Reactions Criticality Noted Date Comments Cat Dander 06/18/2021 Dog Dander 01/31/2024 Grass Pollen 06/18/2021 Latex Rash 08/23/2014 Other 06/18/2021 Pollen Extracts 06/18/2021 Medications Medication Sig Dispensed Refills Start Date End Date Status capsaicin-mentho l 0.025-10 % gel Apply 1 Applicator topically daily. 8 Active FREESTYLE LANCETS MISC FOR CHECKING SUGARS ONCE DAILY WHILE FASTING 4 Active blood sugar diagnostic (FreeStyle Lite Strips) test strip 1 Strip by In Vitro route 4 times daily. 4 Active blood-glucose meter kit FOR CHECKING SUGARS FASTING IN AM 4 09/09/19 25 Active UNABLE TO FIND 1 Each by Does not apply route as needed for Other. 4 Active acetaminophen (TYLENOL 8 HOUR) 650 mg 8 hr tablet Take 1 tablet (650 mg total) by mouth every 8 (eight) hours if needed. 4 Active amitriptyline (ELAVIL) 50 mg tablet Take 10 tablets (500 mg total) by mouth at bedtime. Active atorvastatin (LIPITOR) 80 mg tablet Take 1 tablet (80 mg total) by mouth 1 (one) time each day. 4 Active azelastine (ASTELIN) 137 mcg (0.1 %) nasal spray 1-2 Sprays by Each Nare route 2 times daily. Use in each nostril as directed 1 Active carvediloL (COREG) 12.5 mg tablet Take 1 Tablet by mouth 2 times daily (with meals). 4 Active clonazePAM (KlonoPIN) 1 mg tablet Take 1 Tablet by mouth at bedtime. Active deutetrabenazine (Austedo) 6 mg tablet Take 1 tablet by mouth 1 (one) time each day. Active diclofenac (VOLTAREN) 1 % topical gel Apply 4 g topically 4 times daily as needed (knee pain). 4 Active fexofenadine (SOREN) 180 mg tablet Take 1 tablet (180 mg total) by mouth 1 (one) time each day. 1 Active fluticasone-salm eterol (ADVAIR DISKUS) 250-50 mcg/dose diskus inhaler Inhale 1 Puff into the lungs 2 times daily for 90 days. 4 Active gabapentin (NEURONTIN) 100 mg capsule Take 1 Capsule by mouth at bedtime. 4 Active levETIRAcetam (KEPPRA) 750 mg tablet Take 750 mg by mouth 2 times daily. Active lurasidone (LATUDA) 120 mg tablet Take 1 Tab by mouth every morning. Active montelukast (SINGULAIR) 10 mg tablet Take 1 Tablet by mouth at bedtime for 180 days. 4 Active olopatadine (PATANOL) 0.1 % ophthalmic solution Place 1 Drop into both eyes 2 times daily as needed for Allergies. 1 Active potassium chloride (KLOR-CON) 10 mEq CR tablet Take 1 tablet (10 mEq total) by mouth 1 (one) time each day. 4 Active QUEtiapine (SEROquel) 100 mg tablet Take 3 Tablets by mouth at bedtime. 4 Active sacubitriL-valsa rtan (Entresto) 24-26 mg per tablet Take 1 tablet by mouth 2 (two) times a day. 4 Active topiramate (TOPAMAX) 200 mg tablet Take 200 mg by mouth daily. Active torsemide (DEMADEX) 20 mg tablet Take 1.5 Tablets by mouth daily (with breakfast) AND 1 Tablet Daily before dinner. Do all this for 360 days. 4 03/15/20 25 Active cholecalciferol (VITAMIN D-3) 50 mcg (2,000 unit) tablet Take 1 tablet (2,000 Units total) by mouth 1 (one) time each day. 30 tablet 2 4 09/25/19 25 Active cyanocobalamin (VITAMIN B-12) 100 mcg tablet Take 1 tablet (100 mcg total) by mouth 1 (one) time each day. 30 tablet 2 4 09/25/19 25 Active semaglutide (Wegovy) 1.7 mg/0.75 mL injection pen Inject 1.7 mg under the skin every 7 (seven) days. 3 mL 2 4 10/04/19 25 Active ezetimibe (ZETIA) 10 mg tablet Take 1 tablet (10 mg total) by mouth 1 (one) time each day. 90 each 1 4 01/02/20 25 Active dapagliflozin propanediol (Farxiga) 10 mg tablet TAKE 1 TABLET BY MOUTH DAILY. 90 tablet 3 5 Active spironolactone (ALDACTONE) 25 mg tablet TAKE 1 TABLET BY MOUTH DAILY. 90 tablet 3 5 Active senna (SENOKOT) 8.6 mg tablet TAKE (2) TABLETS BY MOUTH TWICE DAILY. 360 tablet 5 Active pantoprazole (PROTONIX) 20 mg EC tablet Take 1 tablet (20 mg total) by mouth 1 (one) time each day. 90 tablet 5 Active dapagliflozin propanediol (Farxiga) 10 mg tablet Take 1 tablet (10 mg total) by mouth 1 (one) time each day. 4 07/26/19 25 Discontinued pantoprazole (PROTONIX) 20 mg EC tablet Take 1 tablet (20 mg total) by mouth 1 (one) time each day. 4 08/07/19 25 Discontinued(Reo rder) senna (SENOKOT) 8.6 mg tablet TAKE (2) TABLETS BY MOUTH TWICE DAILY. 4 08/07/19 25 Discontinued(Melecio perez) spironolactone (ALDACTONE) 25 mg tablet Take 1 tablet (25 mg total) by mouth 1 (one) time each day. 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 Overview (04/28/2024): Off coumadin due to intracranial hemorrhage on bloodthinner Last Assessment & Plan: No evidence of thrombus on last echocardiogram we will repeat echocardiogram to ensure that there is no evidence TIA (transient ischemic attack) 09/28/2021 Overview (04/28/2024): Last Assessment & Plan: Patient with LV thrombus identified in the past can longer be anticoagulated secondary to 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 Patient be sent for another echocardiogram to make sure that the ejection fraction remains stable. On exam there is no evidence of heart failure Mild intermittent asthma without complication Hearing loss 04/30/2020 Overview (04/28/2024): Will be getting hearing aids 05/2020 Perennial allergic rhinitis 01/03/2020 Recurrent sinus infections 01/03/2020 Seasonal allergies 12/17/2019 Long QT interval 02/21/2019 Overview (04/28/2024): Borderline on EKG; multiple medications and prescribers, caution with med adjustments Fibromyalgia 11/02/2018 Overview (04/28/2024): Sees ATC, Dr. Dickey Chronic headache 10/24/2018 Overview (04/28/2024): Eval with Dr. Rader; started on amitriptyline Retinal hemorrhage of left eye 08/01/2018 Osteoarthritis of both knees 07/14/2018 GERD with esophagitis 05/22/2018 Chronic constipation 01/16/2016 Overview (04/28/2024): Numerous urgent care visits Hypercholesterolemia 09/25/2014 Overview (04/28/2024): Last Assessment & Plan: Patient's lipids are markedly improved with an LDL cholesterol is down to 116. May consider adding Zetia in the future she is on high-dose atorvastatin Vitamin D deficiency 09/25/2014 Bipolar 1 disorder 08/23/2014 Overview (04/28/2024): Dr. Greenfield in psychiatry in [place] Insomnia 08/23/2014 Schizophrenia 08/23/2014 BERNA (obstructive sleep apnea) 04/18/2013 Overview (04/28/2024): Sleep medicine services Home sleep test; 06/24/2021; [...] [employer]. FU in 3 months for compliance. Encounters Date Type Department Care Team Description 08/02/2024 7:48 AM EST - 08/02/2024 11:59 PM EST Hospital Encounter [facility] Nuclear Medicine [address] [place] [address] Nausea and vomiting, unspecified vomiting type; Type 2 diabetes mellitus without complication, unspecified whether usp insulin use ([facility]) Discharge Disposition: Home or Self Care 07/30/2024 1:00 PM EST Nutrition Bariatric Surgery - [place] [address] [facility] [address] [place] [address] Class 2 severe obesity with serious comorbidity and body mass index (BMI) of 38.0 to 38.9 in adult, unspecified obesity type (CMS/HCC) (Primary Dx) 07/23/2024 1:40 PM EST Office Visit Gastroenterology - [place] [address] [facility] 175 [facility] [address] [place] [address] Nkechi Steen NP Family history of malignant neoplasm of colon in first degree relative diagnosed when younger than 60 years of age (Primary Dx); Chronic constipation; Gastroesophageal reflux disease without esophagitis 07/23/2024 Telephone Gastroenterology - [place] [address] [facility] 175 [facility] [address] [place] [address] Nkechi Steen NP 07/12/2024 Telephone [facility] - [address] [place] [address] Simeon Fowler MD clearance letter 07/05/2024 1:00 PM EST Office Visit F[facility] Coach - [place] [address] [place] [phone] Jose Marcano PA Type 2 diabetes mellitus without complication, unspecified whether usp insulin use ([facility]) (Primary Dx); HFrEF (heart failure with reduced ejection fraction) ([facility]); Hypercholesterolemi a; Schizophrenia, unspecified type ([facility]); Hypokalemia 07/05/2024 Telephone Pediatrics - [address] [phone] Niru Trujillo MD Prior Authorization 06/26/2024 2:00 PM EST Telemedicine Bariatric Surgery - [address] [phone] Class 2 severe obesity with serious comorbidity and body mass index (BMI) of 39.0 to 39.9 in adult, unspecified obesity type ([facility]) (Primary Dx) 06/22/2024 9:10 AM EST Lab Draw Station - [address] Morbid obesity with BMI of 40.0-44.9, adult ([facility]) 06/21/2024 10:30 AM EST Office Visit Bariatric Surgery - [address] [phone] Rekha Davison MD Morbid obesity with BMI of 40.0-44.9, adult ([facility]) (Primary Dx); Nausea and vomiting, unspecified vomiting type; Type 2 diabetes mellitus without complication, unspecified whether longwall foreman insulin use ([facility]); Gastroesophageal reflux disease with esophagitis, unspecified whether hemorrhage; BERNA (obstructive sleep apnea); HFrEF (heart failure with reduced ejection fraction) ([facility]/HCC) 06/12/2024 2:47 PM EST - 06/12/2024 8:10 PM EST Emergency [facility] Emergency [address] [place] [phone] Acute cystitis without hematuria (Primary Dx) Discharge Disposition: Home or Self Care 06/11/2024 10:00 AM EST Ancillary Procedure [facility] - [facility] [address] [place] [address] [place] [phone] HFrEF (heart failure with reduced ejection fraction) (CMS/HCC) 05/14/2024 Telephone Gastroenterology - [address] [place] [address] Luis Serna MD SPECIAL PROCEDURE from Last 3 Months Immunizations Name Administration Dates Next Due Influenza Quadravalent, MDCK , 0.5ml, preservative free (Flucelvax) 6mo and older 06/04/2022,05/21/2021,04/30/2020,03/21 Influenza Quadravalent, MDCK , 0.5ml, with preservative (Flucelvax) 6mo and older 05/02/2017 Influenza trivalent, 0.5mL, preservative free (Fluarix; FluLaval; Fluzone) ages 6mo and older (Afluria) 3 years and older 04/05/2024,04/10/2015,08/23/2014 Influenza trivalent, with pr eservative (Fluzone; Afluria) 6mo and older 04/18/2013,04/19/2009 Pfizer SARS-CoV-2 COVID-19, mRNA, LNP-S, preservative free 01/22/2022 Pneumococcal conjugate 20 va lent (Prevnar 20, PCV 20) 2mo and older 04/05/2024 Pneumococcal polysaccharide 23 valent (Pneumovax 23) 2yo and older 05/21/2021 Tdap Tetanus diptheria acell ular pertussis (Boostrix; Adacel) 7yo and older 08/23/2014,11/20/2008 Zoster recombinant (Shingrix ) 19yo and older 01/22/2024,01/29/2023 Surgical History Surgery Date Site/Laterality Comments TUBAL LIGATION PROCEDURE: HISTORICAL TUBAL LIGATION LASER ABLATION OF THE CERVIX 1997 PROCEDURE: IN CAUTERY CERVIX LASER ABLATION COLONOSCOPY 04/14/2015 PROCEDURE: HISTORICAL COLONOSCOPY; COMMENT: normal,. but mediocre bowel prep; repeat in 3 years KNEE SURGERY 07/2015 Right PROCEDURE: HISTORICAL KNEE SURGERY; COMMENT: meniscus OTHER SURGICAL HISTORY 06/26/2018 PROCEDURE: OUTSIDE ENDOSCOPY; COMMENT: LA grade A esophagitis COLONOSCOPY 06/26/2018 PROCEDURE: OUTSIDE COLONOSCOPY; COMMENT: normal TOTAL KNEE ARTHROPLASTY 02/03/2023 Right PROCEDURE: HISTORICAL TOTAL KNEE REPLACE Medical History Medical History Date Comments Bipolar 1 disorder ([facility]/HCC) 08/23/2014 DX: Bipolar 1 disorder ([facility]); COMMENT: Dr. Greenfield in psychiatry in [place] Constipation 01/16/2016 DX:Constipation; COMMENT: Numerous urgent care visits Hypercholesterolemia 09/25/2014 DX:Hypercho lesterolemia Insomnia 08/23/2014 DX:Insomnia BERNA (obstructive sleep apnea) 04/18/2013 DX :BERNA (obstructive sleep apnea) Schizophrenia ([facility]) 08/23/2014 DX:Schiz ophrenia ([facility]) Vitamin D deficiency 09/25/2014 DX:Vitamin D deficiency GERD with esophagitis 05/22/2018 DX:GERD wi th esophagitis Blind left eye DX:Blind left ey e Chronic constipation 01/16/2016 DX:Chronic constipation; COMMENT: Numerous urgent care visits Pulmonary nodules DX:Pulmonary n odules; COMMENT: 09/27/18, [facility] ED Chest CT, sub 3 mm Obesity (BMI 30-39.9) DX:Obesity (BMI 30-39.9) PTSD (post-traumatic stress disorder) DX:PTSD (post-traumatic stress disorder) Anxiety disorder DX:Anxiety diso rder Panic disorder without agoraphobia DX:Panic disorder without agoraphobia Family History Medical History Relation Name Comments Diabetes Daughter 1 Hypertension Daughter 1 Other cancer Daughter 1 some type of ce rvical. Had cervix removed. Asthma Daughter 2 Other: juvenile rheumatoid arthritis Daughter 3 Other: liver cancer Father Diabetes Grandparent HTN Stroke Mother Colon cancer Sister 1 mets to the valorie g Other: erythema nodosum Sister 2 Other: erythema nodosum Sister 3 Breast cancer Neg Hx Relation Name Status Comments Brother 1 Alive Brother 2 Alive Brother 3 Alive Brother 4 Alive Daughter 1 Alive Daughter 2 Alive Daughter 3 Alive Father Grandparent Mother Alive Sister 1 Alive Sister 2 Alive Sister 3 Alive Son 1 Alive Son 2 Alive Son 3 Alive Social History Tobacco Use Types Packs/Day Years Used Date Smoking Tobacco: Never Smokeless Tobacco: Never Tobacco Cessation:Counseling Given: [...] file Not on file Not on file Obstetrics History Last Filed Vital Signs Vital Sign Reading Time Taken Comments Blood Pressure 100/80 07/23/2024 1:46 PM EST Pulse 95 07/23/2024 1:46 PM EST Temperature 37 ??C (98.6 ??F) 06/21/2024 10:21 AM EST Respiratory Rate 16 07/05/2024 1:09 PM EST Oxygen Saturation 98% 07/23/2024 1:46 PM EST Inhaled Oxygen Concentration - - Weight 100 kg (221 lb 8 oz) 07/30/2024 1:[address] Height 162.6 cm (5' 4 ) 07/23/2024 1:46 PM EST Body Mass Index 38.02 07/23/2024 1:46 PM EST Plan of Treatment Upcoming Encounters Date Type Department Care Team (Late st Contact Info) Description 08/16/2024 8:40 AM EST Office Visit [facility] - [facility] [address] [place] [address] [address] [place] [phone] Annabel Gama NP [address] [place] [address] [place] [address] 08/23/2024 11:30 AM EST Office Visit Obstetrics and Gynecology - [address] [phone] Emily Amos, [facility] [address] [place] [address] 08/30/2024 12:30 PM EST Nutrition Bariatric Surgery - [place] [address] [phone] aMdonna Reno, RD [address] [phone] 11/05/2024 12:00 PM EDT Appointment [facility] Endoscopy [address] [place] [phone] Piter Justin DO 175 [facility] [address] [place] [address] 11/15/2024 10:10 AM EDT Office Visit [facility] - [facility] [address] [place] [phone] Livia Hines NP [address] [place] [address] [place] [address] 01/03/2025 1:00 PM EDT Office Visit [facility] - [place] [address] [place] [phone] Jose Marcano PA [address] [place] [address] Health Maintenance Due Date Last Done Comments Diabetes: Annual Retina Eye Exam 1978 Hepatitis B Vaccines (1 of 3 - 19+ 3-dose series) 1987 HIV Screening 06/26/2022 Medicare Annual Wellness Visit 06/26/2022 Social Influencers of Health Screening 06/26/2022 Cervical Cancer Screening: Pap Smear 06/05/2023 06/05/2020, 06/05/2020 Colorectal Cancer Screening: Colonoscopy 06/26/2023 06/26/2018 COVID-19 Vaccine ( season) 2024 01/22/2022, 12/16/2020, 11/17/2020 DTaP,Tdap,and Td Vaccines (3 - Td or Tdap) 08/23/2024 08/23/2014, 11/20/2008 Diabetes: Annual Urine Albumin-Creatinine Ratio (uACR) 09/14/2024 09/15/2023 Depression Screening 10/25/2024 10/26/2023 Diabetes: Annual Foot Exam 10/25/2024 10/26/2023 Diabetes: Blood Sugar Control Test (HGBA1C) 01/10/2025 07/12/2024, 06/22/2024, 04/05/2024, Additional history exists Diabetes: Annual GFR (Glomerular Filtration Rate) 07/12/2025 07/12/2024, 06/12/2024, 04/05/2024, Additional history exists Hypertension/CHF/CAD Annual BMP Blood Test 07/12/2025 07/12/2024, 06/12/2024, 04/05/2024, Additional history exists Breast Cancer Screening 04/19/2026 04/19/20, 04/13/2022, 06/20/2020, Additional history exists Cholesterol Screening (Lipid Panel) 07/12/2029 07/12/2024, 06/22/2024, 10/26/2023 Hepatitis C Screening Completed 08/05/2015 Zoster Vaccines Completed 01/22/2024, 01/15, 11/15/2022 Influenza Vaccine Completed 04/05/2024, , 05/21/2021, Additional history exists Pneumococcal Vaccine: Pediatrics (0 to 5 Years) and At-Risk Patients (6 to 64 Years) Completed 04/05/2024, 05/21/2021 HIB Vaccines Aged Out No longer eligi ble based on patient's age to complete this topic HPV Vaccines Aged Out No longer eligi ble based on patient's age to complete this topic Hepatitis A Vaccines Aged Out No long er eligible based on patient's age to complete this topic IPV Vaccines Aged Out No longer eligi ble based on patient's age to complete this topic MMR Vaccines Aged Out No longer eligi ble based on patient's age to complete this topic Meningococcal ACWY Vaccine Aged Out N o longer eligible based on patient's age to complete this topic RSV Immunization Patients Under 20 months Aged Out No longer eligible based on patient's age to complete this topic Varicella Vaccines Aged Out No longer eligible based on patient's age to complete this topic Procedures Procedure Name Priority Date/Time Associated Diagnosis Comments NM GASTRIC EMPTYING STUDY Routine 08/02/2024 1:41 PM EST Nausea and vomiting, unspecified vomiting type Type 2 diabetes mellitus without complication, unspecified whether usp insulin use (CMS/HCC) COMPREHENSIVE METABOLIC PANEL Routine 07/12/2024 9:02 AM EST Type 2 diabetes mellitus without complication, unspecified whether usp insulin use (CMS/HCC) HFrEF (heart failure with reduced ejection fraction) (CMS/HCC) Hypercholesterolemi a LIPID PANEL WITH REFLEX TO DIRECT LDL Routine 07/12/2024 9:02 AM EST Type 2 diabetes mellitus without complication, unspecified whether longwall foreman insulin use (CMS/HCC) HFrEF (heart failure with reduced ejection fraction) ([facility]) Hypercholesterolemi a HEMOGLOBIN A1C Routine 07/12/2024 9:02 AM EST Type 2 diabetes mellitus without complication, unspecified whether usp insulin use ([facility]) HFrEF (heart failure with reduced ejection fraction) ([facility]) Hypercholesterolemi a CORTISOL Routine 06/22/2024 9:22 AM EST Morbid obesity with BMI of 40.0-44.9, adult ([facility]) FERRITIN Routine 06/22/2024 9:22 AM EST Morbid obesity with BMI of 40.0-44.9, adult ([facility]) FOLATE Routine 06/22/2024 9:22 AM EST Morbid obesity with BMI of 40.0-44.9, adult ([facility]) HEMOGLOBIN A1C Routine 06/22/2024 9:22 AM EST Morbid obesity with BMI of 40.0-44.9, adult ([facility]) INSULIN, FASTING Routine 06/22/2024 9:22 AM EST Morbid obesity with BMI of 40.0-44.9, adult ([facility]) IRON AND TIBC Routine 06/22/2024 9:22 AM EST Morbid obesity with BMI of 40.0-44.9, adult ([facility]) LIPID PANEL WITH REFLEX TO DIRECT LDL Routine 06/22/2024 9:22 AM EST Morbid obesity with BMI of 40.0-44.9, adult ([facility]) MAGNESIUM Routine 06/22/2024 9:22 AM EST Morbid obesity with BMI of 40.0-44.9, adult ([facility]) NICOTINE AND COTININE Routine 06/22/2024 9:22 AM EST Morbid obesity with BMI of 40.0-44.9, adult ([facility]) THYROID STIMULATING HORMONE Routine 06/22/2024 9:22 AM EST Morbid obesity with BMI of 40.0-44.9, adult ([facility]) URIC ACID Routine 06/22/2024 9:22 AM EST Morbid obesity with BMI of 40.0-44.9, adult ([facility]) VITAMIN B1 Routine 06/22/2024 9:22 AM EST Morbid obesity with BMI of 40.0-44.9, adult ([facility]) VITAMIN B12 Routine 06/22/2024 9:22 AM EST Morbid obesity with BMI of 40.0-44.9, adult ([facility]) VITAMIN D 25 HYDROXY Routine 06/22/2024 9:22 AM EST Morbid obesity with BMI of 40.0-44.9, adult ([facility]) STREETER URINE CULTURE TUBE STAT 06/12/2024 7:11 PM EST URINALYSIS WITH REFLEX MICROSCOPIC AND CULTURE STAT 06/12/2024 7:11 PM EST URINALYSIS WITH REFLEX MICROSCOPIC AND CULTURE STAT 06/12/2024 7:11 PM EST CULTURE URINE STAT 06/12/2024 7:[address] ABDOMEN PELVIS W CONTRAST STAT 06/12/2024 5:[address] HEAD WO CONTRAST STAT 06/12/2024 5 :58 PM EST US ABDOMEN LIMITED STAT 06/12/2024 5: 28 PM EST ECG 12-LEAD STAT 06/12/2024 3:12 PM EST CBC WITH AUTO DIFFERENTIAL STAT 06/12/2024 2:14 PM EST LIPASE STAT 06/12/2024 2:14 PM EST COMPREHENSIVE METABOLIC PANEL STAT 06/12/2024 2:14 PM EST CBC AND DIFFERENTIAL STAT 06/12/2024 2:14 PM EST ECG ANNOTATED 06/12/2024 TRANSTHORACIC ECHOCARDIOGRAM (TTE) COMPLETE Routine 06/11/2024 10:57 AM EST HFrEF (heart failure with reduced ejection fraction) (CMS/HCC) CALIXTO SCREENING DIGITAL Routine 04/19/2024 11:57 AM EDT Encounter for screening mammogram for malignant neoplasm of breast DEPRESSION SCREENING Routine 10/26/2023 DIABETES FOOT EXAM Routine 10/26/2023 URINE ALBUMIN CREATININE RATIO Routine 09/15/2023 PAP SMEAR Routine 06/05/2020 COLONOSCOPY Routine 06/26/2018 HEPATITIS C SCREENING Routine 08/05/2015 from Last 3 Months or Most Recently Relevant to Health Maintenance Results * NM Gastric Emptying Study (08/02/2024 1:41 PM EST) Anatomical Region Laterality Modality Body Nuclear Medicine 08/03/2024 3:05 PM EST Impressions 08/03/2024 3:06 PM EST Abnormal gastric emptying concerning for gastroparesis. -------- FINAL REPORT -------- Dictated By: Judie Alexis Dictated Date: 08/03/2024 15:05 ET Assigned Physician: Judie Alexis Reviewed and Electronically Signed By: Judie Alexis Signed Date: 08/03/2024 15:06 ET Workstation ID: [id number] Transcribed By: Self Edit Transcribed Date: 08/03/2024 [...] Signed Date: 08/03/2024 15:06 ET Workstation ID: [id number] Transcribed By: Self Edit Transcribed Date: 08/03/2024 15:05 ET Rekha Davison MD [facility] ES * (ABNORMAL) Lipid panel with reflex to direct LDL (07/12/2024 9:02 AM EST) Only the most recent of2 resultswithin the time period is included. Cholesterol 206(H) 0 - 200 mg/dL LAB CHEMISTRY METHOD 07/12/2024 12:42 PM EST [facility] Triglycerides 144 0 - 150 mg/dL LAB CHEMISTRY METHOD 07/12/2024 12:42 PM EST [facility] HDL 73 >=40 mg/dL LAB CHEMISTRY METHOD 07/12/2024 12:42 PM EST [facility] LDL Calculated 104(H) 0 - 100 mg/dL LAB CHEMISTRY METHOD 07/12/2024 12:42 PM [facility] VLDL Cholesterol Nhan 28.8 mg/dL LAB CHEMISTRY METHOD 07/12/2024 12:42 PM [facility] [facility] Non HDL Chol. (LDL+VLDL) 133 <145 mg/dL LAB CHEMISTRY METHOD 07/12/2024 12:42 PM [facility] Chol/HDL Ratio 2.8 0.0 - 4.4 LAB CHEMISTRY METHOD 07/12/2024 12:42 PM [facility] Blood Venous blood specimen / Unknown Venipuncture / Unknown 07/12/2024 9:02 AM EST 07/12/2024 9:02 AM EST Jose PAYAN LAB BLOOD ORDER CYNDEE Performing Organization Address City/[facility]/ZIP Co de Phone Number [facility] [address] [place] [address], [place] [phone] * Hemoglobin A1c (07/12/2024 9:02 AM EST) Only the most recent of2 resultswithin the time period is included. Hemoglobin A1C 6.3 <6.5 % LAB CHEMISTRY METHOD 07/12/2024 2:13 PM [facility] Mean Bld Glu Estim. 134 mg/dL LAB CHEMISTRY METHOD 07/12/2024 2:13 PM [facility] Blood Venous blood specimen / Unknown Venipuncture / Unknown 07/12/2024 9:02 AM EST 07/12/2024 9:02 AM EST Jose PAYAN LAB BLOOD ORDER CYNDEE [facility] [address] [place] [address], [place] [phone] * (ABNORMAL) Comprehensive metabolic panel (07/12/2024 9:02 AM EST) Only the most recent of2 resultswithin the time period is included. Sodium 140 133 - 145 mmol/L LAB CHEMISTRY METHOD 07/12/2024 12:42 PM [facility] Potassium 3.4(L) 3.5 - 5.5 mmol/L LAB CHEMISTRY METHOD 07/12/2024 12:42 PM [facility] Chloride 104 96 - 110 mmol/L LAB CHEMISTRY METHOD 07/12/2024 12:42 PM [facility] CO2 29 21 - 32 mmol/L LAB CHEMISTRY METHOD 07/12/2024 12:42 PM [facility] Anion Gap 7 3 - 11 LAB CHEMISTRY METHOD 07/12/2024 12:42 PM [facility] Glucose 143(H) 70 - 100 mg/dL LAB CHEMISTRY METHOD 07/12/2024 12:42 PM [facility] BUN 14 5 - 25 mg/dL LAB CHEMISTRY METHOD 07/12/2024 12:42 PM [facility] Creatinine 1.23(H) 0.50 - 1.10 mg/dL LAB CHEMISTRY METHOD 07/12/2024 12:42 PM [facility] eGFR 52(L) >=60 mL/min/1. 73m2 LAB CHEMISTRY METHOD 07/12/2024 12:42 PM [facility] Comment:Calculation based on the??Chronic Kidney Disease Epidemiology Collaboration (CKD-EPI) equation refit??without adjustment for race. BUN/Creatinine Ratio 11.4 LAB CHEMISTRY METHOD 07/12/2024 12:42 PM [facility] Calcium 9.5 8.5 - 10.5 mg/dL LAB CHEMISTRY METHOD 07/12/2024 12:42 PM [facility] AST (SGOT) 14 10 - 42 unit/L LAB CHEMISTRY METHOD 07/12/2024 12:42 PM [facility] ALT (SGPT) 25 10 - 60 unit/L LAB CHEMISTRY METHOD 07/12/2024 12:42 PM EST [facility] Alkaline Phosphatase 82 42 - 121 unit/L LAB CHEMISTRY METHOD 07/12/2024 12:42 PM EST [facility] Total Protein 7.2 6.0 - 8.0 g/dL LAB CHEMISTRY METHOD 07/12/2024 12:42 PM EST [facility] Albumin 4.0 3.2 - 5.0 g/dL LAB CHEMISTRY METHOD 07/12/2024 12:42 PM [facility] Total Bilirubin 0.3 0.0 - 1.4 mg/dL LAB CHEMISTRY METHOD 07/12/2024 12:42 PM [facility] Blood Venous blood specimen / Unknown Venipuncture / Unknown 07/12/2024 9:02 AM EST 07/12/2024 9:02 AM EST Jose PAYAN LAB BLOOD ORDER CYNDEE [facility] [address] [place] [address], * Nicotine and cotinine (06/22/2024 9:22 AM EST) Nicotine <2.0 <2.0 ng/mL 06/26/2024 5:19 AM EST [facility] Cotinine <2.0 <2.0 ng/mL 06/26/2024 5:19 AM EST [facility] Comment: ?Additional Reference Ranges: ? Active Tobacco ? Passive ? Abstinence ?User ?Exposure ?? 2 Weeks and more ? Nicotine ?30 - 50 ??ng/mL ?<2 ng/mL ?<2 ng/mL Cotinine ?? 200 - 800 ng/mL ?<8 ng/mL ?<2 ng/mL Reference Ranges from: ??Clin. Chem.; ??[id number] (2002) Direct any interpretive questions to the toxicology laboratory. This is for medical use only, it is not intended for forensic use. If applicable, any drug confirmation testing reported here was developed and the performance characteristics determined by [facility]. This confirmation testing has not been cleared or approved by the FDA. The laboratory is regulated under CLIA as qualified to perform high-complexity testing. This test is used for patient testing purposes. It should not be regarded as investigational or for research. Test performed at [facility], [address] [place], [place] ??[address] ? [phone] Svitlana Owen MD, PhD - [facility] [employer] Blood Venous blood specimen / Unknown Venipuncture / Unknown 06/22/2024 9:22 AM EST 06/22/2024 9:22 AM EST Rekha Davison MD LAB BLOOD ORDER CYNDEE [facility] [address] [place] [address] * Iron and TIBC (06/22/2024 9:22 AM EST) Iron 114 40 - 150 mcg/dL LAB CHEMISTRY METHOD 06/22/2024 12:20 PM EST [facility] TIBC 324 250 - 450 mcg/dL LAB CHEMISTRY METHOD 06/22/2024 12:20 PM EST [facility] Iron Saturation 35 15 - 50 % LAB CHEMISTRY METHOD 06/22/2024 12:20 PM EST [facility] Blood Venous blood specimen / Unknown Venipuncture / Unknown 06/22/2024 9:22 AM EST 06/22/2024 9:22 AM EST Rekha Davison MD LAB BLOOD ORDER CYNDEE Performing Organization Address City/[facility]/ZIP Co de Phone Number [facility] [address] [place] [address], * Insulin, fasting (06/22/2024 9:22 AM EST) Pathologist [facility] Insulin 22.4 3.0 - 25.0 mcIU/mL LAB CHEMISTRY METHOD 06/22/2024 11:55 AM EST [facility] Blood Venous blood specimen / Unknown Venipuncture / Unknown 06/22/2024 9:22 AM EST 06/22/2024 9:22 AM EST Narrative [facility] - 06/22/2024 11:55 AM EST Insulin reference range based on fasting status. ??Insulin values vary in non- fasting individuals. Rekha Davison MD LAB BLOOD ORDER CYNDEE Performing Organization Address City/[facility]/ZIP Co de Phone Number [facility] [address] [place] [address], [place] [phone] * (ABNORMAL) Vitamin D 25 hydroxy (06/22/2024 9:22 AM EST) Pathologist [facility] Vit D, 25-Hydroxy 28.9(L) 30.0 - 80.0 ng/mL LAB CHEMISTRY METHOD 06/22/2024 11:51 AM EST [facility] Blood Venous blood specimen / Unknown Venipuncture / Unknown 06/22/2024 9:22 AM EST 06/22/2024 9:22 AM EST Rekha Davison MD LAB BLOOD ORDER CYNDEE [facility] [address] [place] [address], [place] [phone] * Uric acid (06/22/2024 9:22 AM EST) [facility] Uric Acid 5.3 3.1 - 7.8 mg/dL LAB CHEMISTRY METHOD 06/22/2024 12:20 PM EST [facility] Blood Venous blood specimen / Unknown Venipuncture / Unknown 06/22/2024 9:22 AM EST 06/22/2024 9:22 AM EST Rekha Davison MD LAB BLOOD ORDER CYNDEE [facility] [address] [place] [address], [place] [phone] * Thyroid stimulating hormone (06/22/2024 9:22 AM EST) [facility] TSH 2.82 0.40 - 4.00 mcIU/mL LAB CHEMISTRY METHOD 06/22/2024 11:51 AM EST [facility] Blood Venous blood specimen / Unknown Venipuncture / Unknown 06/22/2024 9:22 AM EST 06/22/2024 9:22 AM EST Rekha Davison MD LAB BLOOD ORDER CYNDEE [facility] [address] [place] [address], [place] [phone] * Vitamin B1 (06/22/2024 9:22 AM EST) [facility] Vitamin B1 Whole Blood 98 38 - 122 ug/L 06/27/2024 7:55 AM EST [facility] Comment: This test was developed and the performance characteristics determined by [facility]. It has not been cleared or approved by the FDA. The laboratory is regulated under CLIA as qualified to perform high-complexity testing. This test is used for patient testing purposes. It should not be regarded as investigational or for research. Test performed at [facility], [address], [place], [place] ??[address] ? [phone] Svitlana Owen MD, PhD - [employer] [place] [employer] Blood Venous blood specimen / Unknown Venipuncture / Unknown 06/22/2024 9:22 AM EST 06/22/2024 9:22 AM EST Rekha Davison MD LAB BLOOD ORDER CNYDEE [facility] [address] [place] [address] * Magnesium (06/22/2024 9:22 AM EST) [facility] Magnesium 2.3 1.9 - 2.6 mg/dL LAB CHEMISTRY METHOD 06/22/2024 11:43 AM EST [facility] Blood Venous blood specimen / Unknown Venipuncture / Unknown 06/22/2024 9:22 AM EST 06/22/2024 9:22 AM EST Rekha Davison MD LAB BLOOD ORDER CYNDEE Performing Organization Address [facility] de Phone Number [facility] [address] [place] [address], * (ABNORMAL) Folate (06/22/2024 9:22 AM EST) [facility] Folate >20.0(H) 2.8 - 17.0 ng/ml LAB CHEMISTRY METHOD 06/22/2024 12:20 PM EST [facility] Blood Venous blood specimen / Unknown Venipuncture / Unknown 06/22/2024 9:22 AM EST 06/22/2024 9:22 AM EST Rekha Davison MD LAB BLOOD ORDER CYNDEE Performing Organization Address City/[facility]/ZIP Co de Phone Number [facility] [address] [place] [address], [place] [phone] * Ferritin (06/22/2024 9:22 AM EST) Pathologist [facility] Ferritin 49 8 - 252 ng/mL LAB CHEMISTRY METHOD 06/22/2024 12:20 PM EST [facility] Blood Venous blood specimen / Unknown Venipuncture / Unknown 06/22/2024 9:22 AM EST 06/22/2024 9:22 AM EST Rekha Davison MD LAB BLOOD ORDER CYNDEE [facility] [address] [place] [address], [place] [phone] * (ABNORMAL) Vitamin B12 (06/22/2024 9:22 AM EST) [facility] Vitamin B-12 239(L) 250 - 900 pcg/mL LAB CHEMISTRY METHOD 06/22/2024 12:20 PM EST [facility] Blood Venous blood specimen / Unknown Venipuncture / Unknown 06/22/2024 9:22 AM EST 06/22/2024 9:22 AM EST Rekha Davison MD LAB BLOOD ORDER CYNDEE [facility] [address] [place] [address], [place] [phone] * Cortisol (06/22/2024 9:22 AM EST) [facility] Cortisol 16.6 mcg/dL LAB CHEMISTRY METHOD 06/22/2024 11:54 AM EST [facility] Blood Venous blood specimen / Unknown Venipuncture / Unknown 06/22/2024 9:22 AM EST 06/22/2024 9:22 AM EST Narrative [facility] - 06/22/2024 11:54 AM EST CORTISOL REFERENCE RANGE ?? 8 AM SPEC: ??5.0-23.0 mcg/dL ?? 4 PM SPEC: ??3.0-16.0 mcg/dL ?? 8 PM SPEC: ??<5.0 mcg/dL Rekha Davison MD LAB BLOOD ORDER CYNDEE [facility] [address] [place] [address], [place] [phone] * (ABNORMAL) Urinalysis with reflex microscopic and culture (06/12/2024 7:11 PM EST) Specific [place] Urine >1.045(H) 1.003 - 1.030 LAB URINALYSIS - AUTOMATED METHOD 06/12/2024 7:26 PM [facility] pH, Urine 6.5 5.0 - 8.0 pH LAB URINALYSIS - AUTOMATED METHOD 06/12/2024 7:26 PM [facility] Leukocytes, Urine Moderate(A) Negative LAB URINALYSIS - AUTOMATED METHOD 06/12/2024 7:26 PM [facility] Nitrite, Urine Positive(A) Negative LAB URINALYSIS - AUTOMATED METHOD 06/12/2024 7:26 PM [facility] Protein, Urine Trace <=Trace mg/dL LAB URINALYSIS - AUTOMATED METHOD 06/12/2024 7:26 PM [facility] Glucose, Urine Negative Negative mg/dL LAB URINALYSIS - AUTOMATED METHOD 06/12/2024 7:26 PM [facility] Ketones, Urine Negative Negative mg/dL LAB URINALYSIS - AUTOMATED METHOD 06/12/2024 7:26 PM [facility] Urobilinogen , Urine 1.0 0.2 - 1.0 mg/dL LAB URINALYSIS - AUTOMATED METHOD 06/12/2024 7:26 PM [facility] Bilirubin, Urine Negative Negative LAB URINALYSIS - AUTOMATED METHOD 06/12/2024 7:26 PM [facility] Blood, Urine Moderate(A) Negative LAB URINALYSIS - AUTOMATED METHOD 06/12/2024 7:26 PM [facility] RBC, Urine 61.7(H) 0 - 4 /HPF LAB URINALYSIS - AUTOMATED METHOD 06/12/2024 7:26 PM [facility] WBC, Urine 131.3(H) 0 - 4 /HPF LAB URINALYSIS - AUTOMATED METHOD 06/12/2024 7:26 PM [facility] Squamous Epithelial, Urine 11 0 - 60 /LPF LAB URINALYSIS - AUTOMATED METHOD 06/12/2024 7:26 PM [facility] Bacteria, Urine Many(A) Negative /HPF LAB URINALYSIS - AUTOMATED METHOD 06/12/2024 7:26 PM [facility] Hyaline Casts, Urine 13.8(H) 0 - 3 /LPF LAB URINALYSIS - AUTOMATED METHOD 06/12/2024 7:26 PM [facility] Urine Urine specimen obtained by clean catch procedure / Unknown Non-blood Collection / Unknown 06/12/2024 7:11 PM EST 06/12/2024 7:19 PM EST Santo PAYAN LAB URINE ORDERAB LES [facility] [address] [place] [address], * Streeter urine culture tube (06/12/2024 7:11 PM EST) Extra Tube Hold for add-ons. 06/12/2024 9:01 PM [facility] Comment:Auto resulted. Urine Urine specimen obtained by clean catch procedure / Unknown Non-blood Collection / Unknown 06/12/2024 7:11 PM EST 06/12/2024 7:18 PM EST [facility] PAYAN LAB URINE ORDERAB LES Performing Organization Address City/[facility]/ZIP Co de Phone Number [facility] [address] [place] [address], [place] [phone] * (ABNORMAL) Culture urine (06/12/2024 7:11 PM EST) Culture, Urine >100,000 CFU/mL Escherichia coli(A) ALEXSANDER 06/14/2024 11:11 AM EST [facility] Comment: This is an edited result. Previous organism was Gram negative bacilli on 06/13/2024 at 1155 EST. Urine Urine specimen obtained by clean catch procedure / Unknown Non-blood Collection / Unknown 06/12/2024 7:11 PM EST 06/12/2024 7:26 PM EST Narrative Organism Antibiotic Method Susceptibility Escherichia coli Amoxicillin/Clavulanate ALEXSANDER <=2 ug/ml: Susceptible Escherichia coli Ampicillin/Sulbactam ALEXSANDER <=2 ug/ml: Susceptible Escherichia coli Piperacillin/Tazobactam ALEXSANDER <=4 ug/ml: Susceptible Escherichia coli Cefazolin (Urine) ALEXSANDER <=1 ug/ml: Susceptible Escherichia coli Cefoxitin ALEXSANDER <=4 ug/ml: Susceptible Escherichia coli Ceftazidime ALEXSANDER <=0.5 ug/ml: Susceptible Escherichia coli Ceftriaxone ALEXSANDER <=0.25 ug/ml: Susceptible Escherichia coli Cefepime ALEXSANDER <=0.12 ug/ml: Susceptible Escherichia coli Meropenem ALEXSANDER <=0.25 ug/ml: Susceptible Escherichia coli Amikacin ALEXSANDER 4 ug/ml: Susceptible Escherichia coli Gentamicin ALEXSANDER <=1 ug/ml: Susceptible Escherichia coli Ciprofloxacin ALEXSANDER >=4 ug/ml: Resistant Escherichia coli Levofloxacin ALEXSANDER >=8 ug/ml: Resistant Escherichia coli Nitrofurantoin ALEXSANDER <=16 ug/ml: Susceptible Escherichia coli Trimethoprim/Sulfamethoxazole ALEXSANDER <=20 ug/ml: Susceptible [facility] PAYAN [facility] MICROBIOLOGY - GENERAL ORDERABLES Performing Organization Address City/[facility]/ZIP Co de Phone Number [facility] [address] [place] [address], * CT Abdomen Pelvis w Contrast (06/12/2024 5:58 PM EST) Anatomical Region Laterality Modality Body Computed Tomogra phy 06/12/2024 6:13 PM EST Impressions 06/12/2024 6:13 PM EST Impression: 1. Equivocal findings raising the possibility of cystitis, consider correlation with urinalysis. 2. Otherwise, no acute abnormality or CT explanation for reported history of abdominal and epigastric pain. This document has been electronically signed by: Stephon Galaviz MD on 06/12/2024 18:13:00 Narrative 06/12/2024 6:13 PM EST Exam: Contrast-enhanced CT abdomen and pelvis with multiplanar reformats. Comparison: None. Findings: CT abdomen: Lung bases are clear. Liver is free of focal lesions and ductal dilatation. Gallbladder is unremarkable. Spleen is unremarkable. Pancreas and adrenal glands appear unremarkable. Kidneys reveal bilateral punctate nonobstructing calculi. No ureteral stones or hydroureteronephrosis. Kidneys otherwise unremarkable. No free intraperitoneal fluid or retroperitoneal masses or adenopathy. Abdominal aorta is normal caliber. Bowel loops reveal no abnormal wall thickening or distention. The appendix is unremarkable. Occasional colonic diverticuli are present, without CT evidence of diverticulitis. CT pelvis: Uterus and adnexal structures appear unremarkable. Urinary bladder is free of gross filling defects. Equivocal slight perivesical stranding could suggest cystitis, consider correlation with urinalysis. No pelvic masses, fluid or adenopathy. Osseous structures reveal no destructive osseous lesions. Procedure Note Stephon Galaviz MD - 06/12/2024 Exam: Contrast-enhanced CT abdomen and pelvis with multiplanarreformats. Comparison: None. Findings: CT abdomen: Lung bases are clear. Liver is free of focal lesions and ductal dilatation. Gallbladder is unremarkable. Spleen is unremarkable. Pancreas and adrenal glands appear unremarkable. Kidneys reveal bilateral punctate nonobstructing calculi. No ureteral stones or hydroureteronephrosis. Kidneys otherwise unremarkable. No free intraperitoneal fluid or retroperitoneal masses or adenopathy. Abdominal aorta is normal caliber. Bowel loops reveal no abnormal wall thickening or distention. Theappendix is unremarkable. Occasional colonic diverticuli are present, without CT evidence of diverticulitis. CT pelvis: Uterus and adnexal structures appear unremarkable. Urinary bladder is free of gross filling defects. Equivocal slight perivesical stranding could suggest cystitis, consider correlation with urinalysis.No pelvic masses, fluid or adenopathy. Osseous structures reveal no destructive osseous lesions. IMPRESSION: Impression: 1. Equivocal findings raising the possibility of cystitis, consider correlation with urinalysis. 2. Otherwise, no acute abnormality or CT explanation for reportedhistory of abdominal and epigastric pain. This document has been electronically signed by: Stephon Galaviz MD on 06/12/2024 18:13:[address] [facility] [address] PROCEDURES * CT Head wo Contrast (06/12/2024 5:58 PM EST) Anatomical Region Laterality Modality Head and Neck Computed Tomogra phy 06/12/2024 6:12 PM EST Impressions 06/12/2024 6:12 PM EST Impression: 1. No acute intracranial abnormalities. This document has been electronically signed by: Stephon Galaviz MD on 06/12/2024 18:12:54 Narrative 06/12/2024 6:[address] head without contrast Comparison: None Findings: No intracranial mass, midline shift, hydrocephalus, or acute hemorrhage. No CT evidence of acute ischemia. Visualized paranasal sinuses and mastoid air cells normal. Orbits unremarkable. No skull fracture Procedure Note Stephon Galaviz MD - 06/12/2024 CT head without contrast Comparison: None Findings: No intracranial mass, midline shift, hydrocephalus, or acute hemorrhage. No CT evidence of acute ischemia. Visualized paranasal sinuses and mastoid air cells normal. Orbits unremarkable. No skull fracture IMPRESSION: Impression: 1. No acute intracranial abnormalities. This document has been electronically signed by: Stephon Galaviz MD on 06/12/2024 18:12:[address] [facility] [address] PROCEDURES * US Abdomen Limited (06/12/2024 5:28 PM EST) Anatomical Region Laterality Modality Body Ultrasound 06/12/2024 5:56 PM EST Impressions 06/12/2024 5:56 PM EST Impression: 1. Equivocal minimal gallbladder adenomyomatosis. 2. Mild hepatomegaly with evidence of hepatic steatosis. 3. Otherwise unremarkable appearing right upper quadrant ultrasound This document has been electronically signed by: Stephon Galaviz MD on 06/12/2024 17:56:50 Narrative 06/12/2024 5:56 PM EST US limited to right upper quadrant Comparison: None Findings: Visualized pancreas is normal. The liver is enlarged and reveals diffuse increased echogenicity, compatible with steatosis. There is likely some minimal focal fatty sparing near the gallbladder fossa. No focal hepatic lesions.. Right lobe length is 17.6 cm. There is no intrahepatic bile duct dilatation. The common duct is 3 mm in diameter. The gallbladder is free of shadowing filling defects, wall thickening pericholecystic fluid. Equivocal punctate echogenic foci within the gallbladder wall with some ring down artifact could suggest slight adenomyomatosis.. There is no sonographic Espinoza sign. The main portal vein is antegrade Right kidney measures 12.6 cm length. No hydronephrosis. Procedure Note Stephon Galaviz MD - 06/12/2024 US limited to right upper quadrant Comparison: None Findings: Visualized pancreas is normal. The liver is enlarged and reveals diffuse increased echogenicity, compatible with steatosis. There is likely some minimal focal fatty sparing near the gallbladder fossa. No focal hepatic lesions.. Rightlobe length is 17.6 cm. There is no intrahepatic bile duct dilatation. The common duct is 3 mmin diameter. The gallbladder is free of shadowing filling defects, wall thickening pericholecystic fluid. Equivocal punctate echogenic foci within the gallbladder wall with some ring down artifact could suggest slight adenomyomatosis.. There is no sonographic Espinoza sign. The main portal vein is antegrade Right kidney measures 12.6 cm length. No hydronephrosis. IMPRESSION: Impression: 1. Equivocal minimal gallbladder adenomyomatosis. 2. Mild hepatomegaly with evidence of hepatic steatosis. 3. Otherwise unremarkable appearing right upper quadrant ultrasound This document has been electronically signed by: Stephon Galaviz MD on 06/12/2024 17:56:50 [facility] US PROCEDURES * ECG 12 lead (06/12/2024 3:12 PM EST) Ventricular Rate ECG 83 BPM GEMUSE Atrial Rate 83 BPM GEMUSE P-R Interval 128 ms GEMUSE QRS Duration 92 ms GEMUSE Q-T Interval 388 ms GEMUSE QTc 455 ms GEMUSE P Wave Milton 28 degrees GEMUSE R Milton -22 degrees GEMUSE T Milton 12 degrees GEMUSE ECG Interpretation Normal sinus rhythm Voltage criteria for left ventricular hypertrophy Nonspecific ST and T wave abnormality Abnormal ECG When compared with ECG of 03-MAY-2022 17:12, T wave inversion no longer evident in Anterolateral leads Confirmed by LEONCIO ROSADO ([id number]) on 06/12/2024 7:27:01 PM GEMUSE 06/12/2024 3:12 PM EST 06/12/2024 7:27 PM EST [place] PAYAN ECG ORDERABLES [facility]EMUSE * (ABNORMAL) CBC auto differential (06/12/2024 2:14 PM EST) WBC 6.6 4.8 - 10.8 K/mcL LAB HEMETOLOGY METHOD 06/12/2024 2:20 PM EST [facility] RBC 3.90 3.80 - 4.80 M/mcL LAB HEMETOLOGY METHOD 06/12/2024 2:20 PM EST [facility] Hemoglobin 13.3 11.5 - 16.0 g/dL LAB HEMETOLOGY METHOD 06/12/2024 2:20 PM [facility] Hematocrit 40.3 35.0 - 47.0 % LAB HEMETOLOGY METHOD 06/12/2024 2:20 PM [facility] MCV 103.3(H) 79.0 - 98.0 FL LAB HEMETOLOGY METHOD 06/12/2024 2:20 PM [facility] MCH 34.1(H) 27.0 - 32.0 pcg LAB HEMETOLOGY METHOD 06/12/2024 2:20 PM [facility] MCHC 33.0 32.0 - 37.0 g/dL LAB HEMETOLOGY METHOD 06/12/2024 2:20 PM [facility] RDW 12.9 11.0 - 15.0 % LAB HEMETOLOGY METHOD 06/12/2024 2:20 PM [facility] Platelets 165 130 - 400 K/mcL LAB HEMETOLOGY METHOD 06/12/2024 2:20 PM [facility] MPV 10.6 7.0 - 11.0 FL LAB HEMETOLOGY METHOD 06/12/2024 2:20 PM [facility] NRBC 0.0 <1.0 % LAB HEMETOLOGY METHOD 06/12/2024 2:20 PM [facility] NRBC Absolute 0.00 <0.10 K/mcL LAB HEMETOLOGY METHOD 06/12/2024 2:20 PM [facility] Neutrophils Relative 62.5 % LAB HEMETOLOGY METHOD 06/12/2024 2:20 PM [facility] Lymphocytes Relative 30.8 % LAB HEMETOLOGY METHOD 06/12/2024 2:20 PM [facility] Monocytes Relative 5.2 % LAB HEMETOLOGY METHOD 06/12/2024 2:20 PM [facility] Eosinophils Relative 0.9 % LAB HEMETOLOGY METHOD 06/12/2024 2:20 PM [facility] Basophils Relative 0.3 % LAB HEMETOLOGY METHOD 06/12/2024 2:20 PM [facility] Immature Granulocytes Relative 0.3 % LAB HEMETOLOGY METHOD 06/12/2024 2:20 PM [facility] Neutrophils Absolute 4.12 1.50 - 7.00 K/mcL LAB HEMETOLOGY METHOD 06/12/2024 2:20 PM [facility] Lymphocytes Absolute 2.03 1.00 - 5.00 K/mcL LAB HEMETOLOGY METHOD 06/12/2024 2:20 PM EST [facility] Monocytes Absolute 0.34 0.20 - 1.00 K/mcL LAB HEMETOLOGY METHOD 06/12/2024 2:20 PM EST [facility] Eosinophils Absolute 0.06 0.00 - 0.50 K/mcL LAB HEMETOLOGY METHOD 06/12/2024 2:20 PM EST [facility] Basophils Absolute 0.02 0.00 - 0.20 K/[facility] LAB HEMETOLOGY METHOD 06/12/2024 2:20 PM EST [facility] Immature Granulocytes Absolute 0.02 0.00 - 0.03 K/[facility] LAB HEMETOLOGY METHOD 06/12/2024 2:20 PM EST [facility] Blood Venous blood specimen / Unknown Venipuncture / Unknown 06/12/2024 2:14 PM EST 06/12/2024 2:16 PM EST Jose Solomon LAB BLOOD ORDERABLE S [facility] [address] [place] [address], [place] [phone] * Lipase (06/12/2024 2:14 PM EST) Lipase 39 13 - 75 unit/L LAB CHEMISTRY METHOD 06/12/2024 2:45 PM EST [facility] Blood Venous blood specimen / Unknown Venipuncture / Unknown 06/12/2024 2:14 PM EST 06/12/2024 2:16 PM EST Jose Iram Solomon LAB BLOOD ORDERABLE S [facility] [address] [place] [address], [place] [phone] * ECG-Annotated (06/12/2024) Provider Onbase MD ECG ORDERABLES * (ABNORMAL) TRANSTHORACIC ECHOCARDIOGRAM (TTE) COMPLETE (06/11/2024 10:57 AM EST) LV EDV (A2C) 120 mL CV PACS LV EDV (A4C) 119 mL CV PACS LV Diastolic Volume (BP) 121(A) 46 - 106 mL CV PACS LV ESV (A2C) 74 mL CV PACS LV ESV (A4C) 83 mL CV PACS LV Systolic Volume (BP) 81(A) 14 - 42 mL CV PACS IVSD 1.0(A) 0.6 - 0.9 cm CV PACS LVIDD 5.3(A) 3.8 - 5.2 cm CV PACS LVIDS 3.8(A) 2.2 - 3.5 cm CV PACS LVOT Diameter 2.0 cm CV PACS LVOT Mean Edmundo 0.5 m/s CV PACS LVOT Mean Grad 1 mmHg CV PACS LVOT Peak VTI 13.4 cm CV PACS LVOT Peak Edmundo 0.8 m/s CV PACS LVOT Peak Gradient 2 mmHg CV PACS LVPWD 0.9 0.6 - 0.9 cm CV PACS MV E' Tissue Velocity Lateral 7 cm/s CV PACS MV E' Tissue Velocity Septal 6 cm/s CV PACS Ejection Fraction (A2C) 39 % CV PACS Ejection Fraction (A4C) 30 % CV PACS Ejection Fraction (BP) 34 % CV PACS LVOT Area 3.1 cm2 CV PACS LVOT Stroke Volume 42 mL CV PACS Left Atrium Minor Milton 5.7 cm CV PACS Left Atrium Major Milton 5.4 cm CV PACS LA Area Sys (A2C) 22 cm2 CV PACS LA Area Sys (A4C) 17 cm2 CV PACS LA Volume (BP) 52 mL CV PACS RA Area 15.6 cm2 CV PACS RA 2D Volume 42 mL CV PACS Aortic Sinus Valsalva 3.0 cm CV PACS Ascending Aorta 3.3 cm CV PACS IVC Proximal 1.5 cm CV PACS IVC Proximal 0.9 cm CV PACS E Wave Deceleration Time 158 119 - 242 ms CV PACS MV Peak A Edmundo 1.16 m/s CV PACS MV Peak E Edmundo 0.61 m/s CV PACS PV Acceleration Time 77 ms CV PACS RV Diastolic Basal Dimension 2.8 2.5 - 4.1 cm CV PACS RV S' 10 cm/s CV PACS TAPSE 19 mm CV PACS E/E' Ratio Septal 10 CV PACS E/E' Ratio Averaged 9 CV PACS Relative Wall Thickness ratio 0.34 CV PACS FS 28 % CV PACS LV Mass 2D 187 g CV PACS LVOT flow 157 mL/s CV PACS E/A Ratio 0.5 CV PACS E/E' Ratio Lateral 9 CV PACS BSA 2.14 m2 CV PACS LV Diastolic Volume Index (BP) 59 29 - 61 mL/m2 CV PACS LV Systolic Volume Index (BP) 40(A) 8 - 24 mL/m2 CV PACS LV EDV Index (A4C) 58 mL/m2 CV PACS LV ESV Index (A4C) 41 mL/m2 CV PACS LV EDV Index (A2C) 59 mL/m2 CV PACS LV ESV Index (A2C) 36 mL/m2 CV PACS LA Volume Index (BP) 25 mL/m2 CV PACS LVIDD Index 2.60 cm/m2 CV PACS LVIDS Index 1.86 cm/m2 CV PACS LV Mass Index 2D 92(A) 44 - 88 g/m2 CV PACS LVOT Stroke Index 21 mL/m2 CV PACS RA 2D Volume Index 21 15 - 27 mL/m2 CV PACS Ascending Aorta Index 1.62 cm/m2 CV PACS Anatomical Region Laterality Modality Ultrasound Narrative 06/12/2024 6:43 PM EST ?Left ventricle cavity size is normal. Left ventricular systolic function is in the normal range with an ejection fraction in the 50-55% range. ?No regional LV wall motion abnormalities noted. ?Left ventricle mild asymmetric septal hypertrophy. ?Right ventricle cavity is normal. Right ventricular systolic function is normal. Left Ventricle Left ventricle cavity size is normal. There is mild asymmetric septal hypertrophy. Systolic function is normal with an ejection fraction in the 55-70% range. There are no regional LV wall motion abnormalities. Unable to assess diastolic function. Right Ventricle Right ventricle cavity appears normal. Systolic function is normal. Left Atrium Left atrium cavity size is normal. Right Atrium Right atrium cavity is normal. IVC/SVC Inferior vena cava structure is normal. RA pressures is estimated to be 8 mmHg (IVC diameter <21 mm and decreases <50% during inspiration). Mitral Valve The leaflets are mildly thickened. There is mild annular calcification. There is trace regurgitation. There is no significant stenosis noted. Tricuspid Valve Tricuspid valve structure is normal. There is no significant regurgitation. There is no significant tricuspid valve stenosis. Aortic Valve The aortic valve is trileaflet. The leaflets are not thickened and exhibit normal excursion. There is no regurgitation or stenosis. Pulmonic Valve The pulmonic valve was not well visualized. No significant pulmonic valve regurgitation. No significant pulmonary valve stenosis noted. Ascending Aorta The aorta appears normal in size. Pericardium Pericardium appears normal. There is no pericardial effusion. Study Details Overall the study quality was adequate. Simeon Fowler MD CV ECHO PROCEDURES * [place] SCREENING DIGITAL (04/19/2024 11:57 AM EDT) Anatomical Region Laterality Modality Mammography 04/18/2024 11:0 9 AM EDT Narrative 04/19/2024 11:[address] [facility] Diagnostic Imaging Department [address] [place] [address] Patient: ??PEREZ,IRMA ?/Age/Sex: 1970 - 54 - F Unit#: ??[id number] ? Location/Status: ??SPDIMAM/REG CLI ? Mnemonic/Ordering Site: ??DIGSC/SPMAM Ordering Physician: ??NIRU TRUJILLO MD [facility] Screening Digital - 04/18/24 - 1140 Report Status:Signed EXAM: [facility] Screening Digital EXAM DATE AND TIME: 04/18/2024 11:40 AM HISTORY: ??Screening. Right breast biopsies in 2022, pathology benign. COMPARISON: ??05/02/23 (postbiopsy clip images), 05/12/23, 04/16/23, 04/13/22, 06/20/20 TECHNIQUE: Bilateral digital breast tomosynthesis was performed in the CC and MLO projections. Computer aided detection with Mobilygen 3D 3.1 was employed. TISSUE DENSITY: b. There are scattered areas of fibroglandular density. FINDINGS: No suspicious masses, grouped microcalcifications, or areas of architectural distortion are seen. Biopsy markers are again seen in the upper outer right breast, middle depth. Residual microcalcifications seen elsewhere within the breast are without significant change. The skin and vascularity are unremarkable. IMPRESSION: Stable mammographic appearance of the breasts. ??No evidence of malignancy is seen. A negative mammogram in the presence of a clinically suspicious palpable abnormality does not preclude the possibility of malignancy or alter the indicat ions for biopsy. BI-RADS: ??Category 2: Benign RECOMMENDATION(S): 1: Routine screening mammogram BILATERAL in 1 year. Mammogram performed at [facility] [place] [address] Dictating Physician: ??CATHERINE DÍAZ MD Electronically Signed by: ??CATHERINE DÍAZ MD Dic Date/Time: ??04/19/24 1156 Sign date/Time: ??04/19/24 1157 Procedure Note Catherine Díaz MD - 05/15/2024 [facility] Diagnostic Imaging Department [address] [place] [address] Patient: CHASTITY PEREZ /Age/Sex: 1970 - 54 - F Unit#: [id number] Location/Status: SPDIMAM/REG CLI Mnemonic/Ordering Site: [facility] Ordering Physician: NIRU TRUJILLO MD [facility] Screening Digital - 04/18/24 - 1140 Report Status:Signed EXAM: [facility] Screening Digital EXAM DATE AND TIME: 04/18/2024 11:40 AM HISTORY: Screening. Right breast biopsies in 2022, pathology benign. COMPARISON: 05/02/23 (postbiopsy clip images), 05/12/23, 04/16/23,04/13/22, 06/20/20 TECHNIQUE: Bilateral digital breast tomosynthesis was performed in the CCand MLO projections. Computer aided detection with Mobilygen 3D 3.1was employed. TISSUE DENSITY: b. There are scattered areas of fibroglandular density. FINDINGS: No suspicious masses, grouped microcalcifications, or areas ofarchitectural distortion are seen. Biopsy markers are again seen in the upper outerright breast, middle depth. Residual microcalcifications seen elsewhere withinthe breast are without significant change. The skin and vascularity are unremarkable. IMPRESSION: Stable mammographic appearance of the breasts. No evidence of malignancyis seen. A negative mammogram in the presence of a clinically suspicious palpable abnormality does not preclude the possibility of malignancy or alter theindicat ions for biopsy. BI-RADS: Category 2: Benign RECOMMENDATION(S): 1: Routine screening mammogram BILATERAL in 1 year. Mammogram performed at [facility] [place] [address] Dictating Physician: CATHERINE DÍAZ MD Electronically Signed by: CATHERINE DÍAZ MD Dic Date/Time: 04/19/24 1156 Sign date/Time: 04/19/24 1157 Niru Trujillo MD IMG BI PROCEDURES * Depression Screening (10/26/2023) Depression Screening abstracted Historical Provider [facility] * Diabetes Foot Exam (10/26/2023) Diabetes: Annual Foot Exam abstracted Historical Provider [facility] E * Urine Albumin Creatinine Ratio (09/15/2023) Urine Albumin Creatinine Ratio abstracted Historical Provider [facility] * Pap smear (06/05/2020) 06/05/2020 Narrative HISTORICAL TESTING LAB RESULTING AGENCY - 06/10/2020 7:51 AM EST [id number] THINPREP PAP, IMAGED: NEGATIVE FOR SQUAMOUS INTRAEPITHELIAL LESION AND MALIGNANCY . JAMES BHATIA(ASCP) (CASE ELECTRONICALLY SIGNED 06 09 2020) RESULT OF APTIMA HIGH RISK HPV ASSAY: HIGH RISK HPV: ??NEGATIVE (SEROTYPES 16,18,31,33,35,39,45,51,52,56,58,59,66,68) COMPLETED ON 2020-06-09 ADEQUACY: SATISFACTORY ENDOCERVICAL/TRANSFORMATION ZONE COMPONENT ABSENT. SOURCE: THINPREP PAP HPV ANY DX: ??REFLEX 16 AND 18, CERVICAL, IMAGED CLINICAL INFORMATION: HPV ANY DIAGNOSIS. 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 Expl anation Health Care Decision (hx) 10/08/2021 AD TAPIA DIRECTIVE Health Care Decision (hx) 10/07/2021 AD TAPIA DIRECTIVE Health Care Decision (hx) 10/07/2021 AD TAPIA DIRECTIVE Health Care Decision (hx) 10/07/2021 AD TAPIA DIRECTIVE Health Care Decision (hx) 10/07/2021 AD TAPIA DIRECTIVE Health Care Decision (hx) 10/07/2021 AD TAPIA DIRECTIVE Health Care Decision (hx) 10/07/2021 AD TAPIA DIRECTIVE Health Care Decision (hx) 10/07/2021 AD TAPIA DIRECTIVE Health Care Decision (hx) 10/07/2021 AD TAPIA DIRECTIVE Health Care Decision (hx) 10/07/2021 AD TAPIA DIRECTIVE Health Care Decision (hx) 10/07/2021 AD TAPIA DIRECTIVE Health Care Decision (hx) 10/07/2021 AD TAPIA DIRECTIVE Health Care Decision (hx) 10/07/2021 AD TAPIA DIRECTIVE Health Care Decision (hx) 10/07/2021 AD TAPIA DIRECTIVE Health Care Decision (hx) 10/07/2021 AD TAPIA DIRECTIVE Health Care Decision (hx) 10/07/2021 AD TAPIA DIRECTIVE Health Care Decision (hx) 10/07/2021 AD TAPIA DIRECTIVE Health Care Decision (hx) 10/07/2021 AD TAPIA DIRECTIVE Health Care Decision (hx) 10/07/2021 AD TAPIA DIRECTIVE Health Care Decision (hx) 10/07/2021 AD TAPIA DIRECTIVE Health Care Decision (hx) 10/07/2021 AD TAPIA DIRECTIVE Health Care Decision (hx) 10/07/2021 AD TAPIA DIRECTIVE Health Care Decision (hx) 03/11/2014 AD TAPIA DIRECTIVE Health Care Decision (hx) 03/11/2014 AD TAPIA DIRECTIVE Health Care Decision (hx) 03/11/2014 AD TAPIA DIRECTIVE Health Care Decision (hx) 03/11/2014 AD TAPIA DIRECTIVE Health Care Decision (hx) 03/11/2014 AD TAPIA DIRECTIVE Health Care Decision (hx) 03/11/2014 AD TAPIA DIRECTIVE Health Care Decision (hx) 03/11/2014 AD TAPIA DIRECTIVE Health Care Decision (hx) 03/11/2014 AD TAPIA DIRECTIVE Health Care Decision (hx) 03/11/2014 AD TAPIA DIRECTIVE Health Care Decision (hx) 03/11/2014 AD TAPIA DIRECTIVE Health Care Decision (hx) 03/11/2014 AD TAPIA DIRECTIVE Health Care Decision (hx) 03/11/2014 AD TAPIA DIRECTIVE Health Care Decision (hx) 03/11/2014 AD TAPIA DIRECTIVE Health Care Decision (hx) 03/11/2014 AD TAPIA DIRECTIVE Health Care Decision (hx) 03/11/2014 AD TAPIA DIRECTIVE Health Care Decision (hx) 03/11/2014 AD TAPIA DIRECTIVE Health Care Decision (hx) 03/11/2014 AD TAPIA DIRECTIVE Health Care Decision (hx) 03/11/2014 AD TAPIA DIRECTIVE Health Care Decision (hx) 03/11/2014 AD TAPIA DIRECTIVE Health Care Decision (hx) 03/11/2014 AD TAPIA DIRECTIVE Health Care Decision (hx) 03/11/2014 AD TAPIA DIRECTIVE Health Care Decision (hx) 03/11/2014 AD TAPIA DIRECTIVE Health Care Decision (hx) 03/11/2014 AD TAPIA DIRECTIVE Health Care Decision (hx) 03/11/2014 AD TAPIA DIRECTIVE Health Care Decision (hx) 03/11/2014 AD TAPIA DIRECTIVE Health Care Decision (hx) 03/11/2014 AD TAPIA DIRECTIVE Health Care Decision (hx) 03/11/2014 AD TAPIA DIRECTIVE Health Care Decision (hx) 03/11/2014 AD TAPIA DIRECTIVE Health Care Decision (hx) 03/11/2014 AD TAPIA DIRECTIVE Health Care Decision (hx) 03/11/2014 AD TAPIA DIRECTIVE Health Care Decision (hx) 03/11/2014 AD TAPIA DIRECTIVE 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
== END 2024-08-13 10:47 | disposition home or self-care (01) ==
LOC: HO.LAB 10:46
PROVIDERS: PCP Internal Medicine; Visit Provider Registered Nurse
DX: G43.909 Migraine, unspecified, not intractable, without status migrainosus (principal)
CPT/HCPCS: 36415; 85652; 86140